=== PATIENT | female | born 1930 | race Caucasian/White ===

== ENCOUNTER 2018-02-22 12:32 | Outpatient (CLI) | payer MEDICARE, OTHER | END 2018-02-22 12:33 | disposition home or self-care (01) | LOC: BICMAMMO 12:32 | PROVIDERS: ATTEND Internal Medicine | DX: Z12.31 Encounter for screening mammogram for malignant neoplasm of breast (principal); Z85.3 Personal history of malignant neoplasm of breast | CPT/HCPCS: 77063; 77067 ==

== ENCOUNTER 2018-04-11 10:08 | Inpatient (IN) | payer MEDICARE, OTHER ==
[2018-04-11 10:57] LABS: #Lymphocytes 0.7 thou/uL (1.20-3.40); #Monocytes 0.4 thou/uL (0.11-0.59); #Neutrophils 6.1 thou/uL (1.40-6.50); %Basophils 0.5 % (0.0-1.0); %Eosinophils 0.6 % (0.0-10.0); %Lymphocytes 8.9 % (21.0-51.0); %Monocytes 5.9 % (0.0-10.0); %Neutrophils 84.2 % (42.0-75.0); Hemoglobin 11.4 g/dL (12.0-16.0); Mean Corpuscular HGB CONC 32.9 g/dL (32.0-36.0); Mean Corpuscular Hemoglobin 30.7 pg (27.0-31.0); Mean Corpuscular Volume 93.1 fl (81.0-99.0); Mean Platelet Volume 6.2 fL (7.4-10.4); Platelet Count 394 thou/uL (130-400); RBC Distribution Width 13.3 % (11.5-14.5); Red Blood Cell (RBC) Count 3.71 mill/uL (4.20-5.40); White Blood Cell (WBC) Count 7.3 thou/uL (4.8-10.8)
[2018-04-11] MEDS ORDERED: Ondansetron ODT 8 MG TAB ONE (11:00)
[2018-04-11 11:06] LABS: INR-International Normal Ratio 3.3; Prothrombin Time 35.3 SEC (12.0-14.7)
--- NOTE | 2018-04-11 11:12 | RAD ---
CHEST 1 VIEW: Date: 04/11/18 HISTORY: Pneumonia. COMPARISON: Chest radiograph dated 11/29/16. FINDINGS: Heart size is mildly enlarged. Continued obscuration of left hemidiaphragm and left lateral costophre jany sulcus and chronic increase in mediastinal fat. Dual lead pacer is in place. Subacromial narrowin g bilaterally. IMPRESSION: Similar exam with chronic changes in the chest. Mild cardiomegaly. POS: [facility]
[2018-04-11 11:21] LABS: ALT (SGPT) 13 U/L (8-55); AST (SGOT) 25 U/L (5-34); Albumin 3.9 g/dL (3.4-4.8); Alkaline Phosphatase 68 U/L (40-150); Anion Gap 21 mmol/L (10-20); BUN (Urea Nitrogen) 40 mg/dL (9.8-20.1); Bilirubin, Total 0.3 mg/dL (0.2-1.2); CK (CPK) 147 U/L (29-168); Calc. Creatinine Clearance 0 mL/min (70-130); Calcium 9.5 mg/dL (7.8-10.44); Carbon Dioxide 12 mmol/L (23-31); Chloride 101 mmol/L (98-107); Estimated GFR-MDRD 15; Globulin 3.1 g/dL (2.4-3.5); Glucose 97 mg/dL (83-110); Lipase 11 U/L (8-78); Magnesium 2.2 mg/dL (1.6-2.6); Potassium 5.8 mmol/L (3.5-5.1); Sodium 128 mmol/L (136-145)
[2018-04-11 11:25] LABS: Troponin I Less than 0.010 ng/mL (< 0.028)
[2018-04-11 11:27] LABS: CKMB 6.8 ng/mL (0-6.6)
--- NOTE | 2018-04-11 11:36 | CT ---
CT BRAIN WITHOUT CONTRAST: Date: 04/11/18 HISTORY: Hallucinations. COMPARISON: Prior CT brain dated 11/29/16. FINDINGS: No acute territorial infarct or hemorrhage. No midline shift or mass effect. Ventricular size and ext ra-axial CSF spaces are normal. Calvarium is intact. Paranasal sinuses and mastoids are clear. There is moderate atrophy with ex vacuo dilatation of the ventricular system and extra-axial CSF spac es. Orbits are unremarkable. IMPRESSION: No acute intracranial abnormality. POS: [facility]
[2018-04-11] MEDS ORDERED: Hydrocortisone Sod Succ/PF 100 mg/2 ml Vial ONE (11:48)
[2018-04-11 11:51] LABS: Bilirubin Negative (Negative); Blood, Urine Moderate (Negative); Clarity CLEAR (Clear); Glucose, Urine (Dipstick) Negative (Negative); Leukocyte Negative (Negative); Nitrite Negative (Negative); Protein, Urine (Dipstick) 30 mg/dL (Neg-Trace); Specific Gravity, Urine 1.014 (1.002-1.036); Urobilinogen 0.2 mg/dL (0.2-1.0); pH, Urine 6.5 (5.0-9.0)
[2018-04-11 11:53] LABS: Bacteria/HPF None Seen HPF (None Seen); Hyaline Casts/LPF 0-3 HYALINE CAST LPF (0-3 Hyaline); Pathc Cast-AUWi Flag 0.29 (0-2.49); Squamous Epithelial 0-3 HPF (0-3); WBC/HPF None Seen HPF (0-3)
[2018-04-11] MEDS ORDERED: Piperacillin/Tazobactam 4.5 GM in Sodium Chloride 0.9% 100 ML IVPB SCH (12:00)
[2018-04-11] MEDS ORDERED: Vancomycin HCl 1.5 GM in Sodium Chloride 0.9% 250 ML 300 ML IVPB SCH ×2 (12:00→15:30)
[2018-04-11] MEDS ORDERED: Sodium Chloride 0.9% 100 ML ONE (12:08)
[2018-04-11] MEDS ORDERED: Piperacillin/Tazobactam 4.5 GM VIAL ONE (12:08)
--- NOTE | 2018-04-11 12:15 | RAD ---
PORTABLE CHEST: HISTORY: Altered mental status, vomiting. COMPARISON: Earlier exam of the same day. FINDINGS: The heart size is enlarged with a pacemaker in place. The lungs are clear of any infiltrative proces s. IMPRESSION: 1. Cardiomegaly with transvenous pacemaker in place. 2. Arthritic changes of the right shoulder and changes suggesting chronic rotator cuff injury. POS: [facility]ERLINE
[2018-04-11] MEDS ORDERED: Azithromycin 500 MG in Sodium Chloride 0.9% 250 ML 250 ML IVPB SCH ×2 (12:30→15:30)
--- NOTE | 2018-04-11 13:53 | CT ---
CT ABDOMEN AND PELVIS WITHOUT IV CONTRAST: Date: 04/11/18 Multiple axial tomograms obtained through the abdomen and pelvis without IV enhancement. Oral contras t was not administered. INDICATIONS: Abdominal pain with vomiting. Comparison made to prior abdominal and pelvic CT dated 09/24/16. FINDINGS: Lung bases are clear. Liver and spleen are unremarkable. Pancreas shows atrophy and is unremarkable. The gallbladder is mildly distended. Gallbladder distention was also present on the prior study. No e vidence of gallstones; however, cholesterol gallstones may not be apparent on CT. No evidence of bili mercy duct dilatation apparent. Adrenal glands unremarkable. Kidneys show cortical thinning. Exophytic cyst from the right kidney kael ears stable. No hydronephrosis. There is opacification of both renal pelvises suggesting contrast exc retion. Recommend clinical correlation regarding recent IV iodinated contrast. There are nonobstructing calculi in the upper collecting structures of both kidneys. The ureters are normal caliber with no evidence of ureteral calculus or obstruction. Urinary bladder unremarkable. Small bowel loops appear normal caliber. The patient has a left colostomy. There has been resection o f the left descending colon. There is a rectal sigmoid stump with radiopaque suture material. There i s diverticulosis of numerous small bowel loops in the left abdomen and scattered diverticula involvin g the visualized left and transverse colon. No definite CT evidence of diverticulitis identified. Aorta is normal caliber with peripheral calcification. Patient appears to be post hysterectomy. Degenerative spine changes are seen. There is gas pocket in the spinal canal at the L3-4 level. This would be secondary to extravasated gas from vacuum phenomenon within the disc space in the spinal can al. This does appear to compress the thecal sac and result in central canal stenosis. IMPRESSION: 1. Mildly distended gallbladder. Similar findings noted on prior CT. 2. Diverticulosis of the visualized transverse and remaining left colon, and also diverticulosis of numerous small bowel loops in the left abdomen. No CT evidence of diverticulitis. 3. Kidneys show cortical thinning and renal cysts which are stable. Opacification in the renal colle cting structures suggests recent contrast administration with renal excretion. There are nonobstructi ng calculi in the upper collecting structures of both kidneys. 4. There is a gas pocket in the spinal canal at the L3-4 level with secondary central canal stenosis . POS: [facility]
[2018-04-11] MEDS ORDERED: Acetaminophen 325 MG TAB PO PRN (14:32)
[2018-04-11] MEDS ORDERED: Ondansetron ODT 4 MG TAB PO PRN ×2 (14:32→15:21)
[2018-04-11] MEDS ORDERED: Ondansetron HCl/PF 4 MG/2 ML Vial IVP PRN (14:32)
[2018-04-11] MEDS ORDERED: Benzonatate 100 MG CAP PO PRN (15:21)
[2018-04-11] MEDS ORDERED: Acetaminophen/Codeine 30-300mg Tablet PO PRN (15:21)
[2018-04-11] MEDS ORDERED: guaiFENesin ER 600 MG TAB PO PRN (15:21)
[2018-04-11] MEDS ORDERED: Milk Of Magnesia 30 ML UDCUP PO PRN (15:21)
[2018-04-11] MEDS ORDERED: Simethicone Chewable 80 MG TAB PO PRN (15:21)
[2018-04-11] MEDS ORDERED: Estradiol 0.01% Vaginal Cream 42.5 gm Tube VAG SCH (15:30)
[2018-04-11 15:36] LABS: Lactic Acid 5.4 mmol/L (0.5-2.2)
[2018-04-11] MEDS ORDERED: diphenhydrAMINE 25 MG CAP PO PRN (15:46)
[2018-04-11] MEDS: metFORMIN 500 MG TAB PO SCH (17:25)
[2018-04-11] MEDS: Dronedarone HCl 400 MG TAB PO SCH (17:25)
[2018-04-11] MEDS: Sodium Chloride 0.9% 1,000 ML IV SCH (17:25)
--- NOTE | 2018-04-11 17:45 | HP ---
DATE OF ADMISSION: 04/11/2018 CHIEF COMPLAINT: Weakness and vomiting. HISTORY OF PRESENT ILLNESS: This patient is an 87-year-old female who lives in a nursing facility who presented with progressive 2 week history of weakness and nausea. The patient has not been able to take in much secondary to the nausea and over the last 2 days reports she has had no significant intake at all. She reports that today she started vomiting, had a couple of episodes. She also reports that she has had some cough and believes someone at the nursing facility thought she may have had pneumonia. She is unclear if she was specifically given any medications for that or not. She reports she did have some sputum, but that is essentially resolved at the moment. The patient had reported to the ER physician and admits to me that she was having some visual hallucinations. She has good insight to this and reports that she thought she was seeing a cat around. She also reported to ER physician that she had been seeing her late . PAST MEDICAL HISTORY: Notable for diabetes mellitus, hypertension, hyperlipidemia, hypothyroidism, obstructive sleep apnea, obesity, gout, atrial fibrillation and Parkinson disease, and breast cancer. Patient also admits to having some difficulty with her short term memory and is on medications for dementia. PAST SURGICAL HISTORY: Notable for an umbilical hernia repair which apparently may have resulted in some secondary infection causing a partial colectomy with colostomy placement. She has a history of glaucoma with eye surgery x8. Right mastectomy. Right ureteral stent secondary to nephrolithiasis. FAMILY HISTORY: Patient reports that her father of heart disease. Her mother 1 month shy of her 89 birthday. SOCIAL HISTORY: The patient lives in a nursing facility. She states that she smoked but quit in 05/1942. She denies alcohol use. She is a and has 2 sons. She reports that her surrogate decision maker would be her son, Jesús Harry. Patient also requests DNR status upon discussion. She stated "at my age why bother." She states she wants simple things, but nothing aggressive like that. REVIEW OF SYSTEMS: Notable for the memory problems that she reported, but otherwise a 10 point review of systems was negative except for those things mentioned in the history of present illness. CURRENT MEDICATIONS: Tramadol 50 mg every day, metformin 1000 mg b.i.d., guaifenesin 600 b.i.d., diphenhydramine 25 mg at bedtime p.r.n., timolol eyedrops, Bactrim b.i.d., VESIcare 10 mg every day, simvastatin 40 mg at bedtime , simethicone 180 mg p.r.n., Xarelto 20 mg every day, potassium 20 mEq daily, pantoprazole 40 mg every day, Zofran 4 mg q.4 hours p.r.n., metoprolol succinate 100 mg p.o. at bedtime, meloxicam 7.5 mg every day, levothyroxine 88 mcg at bedtime, DuoNebs p.r.n., gentamicin ophthalmic drops half inch to each eye t.i.d., Lasix 40 mg every day, Estradiol vaginal cream 1 gram every week, Multaq 400 mg b.i.d., Aricept 5 mg every day, Tylenol with codeine 1 tablet q.6 hours p.r.n., Levaquin 750 mg p.o. daily, Tessalon Perles 100 mg p.o. t.i.d., p.r.n. Tylenol. ALLERGIES: HALDOL, NSAIDs, METOCLOPRAMIDE. PHYSICAL EXAMINATION: VITAL SIGNS: Temperature 97.3, pulse 74, respirations 16, O2 sat 94% on room air, BP is 123/87. GENERAL APPEARANCE: Age appropriate female, in no distress. She is awake and alert. She does have some frontal male pattern type baldness. HEENT: Pupils are constricted and nonreactive with vastly diminished visual acuity. No OP lesions. She does have significant sublingual varicosities. NECK: Supple and symmetric without lymphadenopathy or JVD. CARDIOVASCULAR: Regular rate and rhythm without murmurs, gallops or rubs. LUNGS: Clear to auscultation bilaterally with good chest wall expansion and air exchange. ABDOMEN: Soft, nontender, nondistended with positive bowel sounds. The colostomy stoma appears to be very healthy. EXTREMITIES: Warm and dry without significant erythema or edema. SKIN: Shows no evidence of breakdown or lesions. LABORATORY DATA: White count 7.3, hemoglobin 11.4, platelets 394. INR is 3.3. Chemistry notable for sodium of 128, potassium 5.8, chloride 101, CO2 of 12, BUN 40, creatinine is 2.89. Lactic acid 5.6 with subsequent repeat 5.4, glucose 97, magnesium is 2.2, AST is 25, ALT is 13. CK 147, CK-MB 6.8, troponin less than 0.010. Albumin 3.9, lipase 11. TSH 0.3. Urinalysis is clear with negative ketones, nitrites, bilirubin and leukocyte esterase, positive for blood with 4-6 red cells and no white cells seen, 0-3 hyaline casts. Chest x-ray shows cardiomegaly with pacemaker, some arthritic changes in the shoulder, suggesting some rotator cuff injury. IMAGING: CT of the abdomen and pelvis shows mild distended gallbladder, unchanged from prior exam, diverticulosis throughout the colon and portions of the small bowel. Kidney shows some cortical thinning with renal cyst. There is a gas pocket in the spinal canal at the L3-L4 level with secondary central canal stenosis. CT of the brain, no acute intracranial abnormality. IMPRESSION AND PLAN: 1. This patient has a moderate hyponatremia. It is unclear that this is actually symptomatic at this point, but certainly could be accounting for some of her altered mental status symptoms and nausea. She appears to be prerenal on her labs. We will hydrate gently to try to slowly improve her sodium levels. This may be secondary to the nausea or initiating the nausea. 2. Hyperkalemia. This patient is on diuretics and potassium. When she is nauseated, not taking p.o., she can dehydrated fairly quickly and cause the hyperkalemia. We will hold both the Lasix and the potassium and hydrate gently. 3. Prerenal azotemia. The patient appears to be somewhat dehydrated with prerenal azotemia on labs and not able to take in much p.o. in the last few days. In addition of that she has had some vomiting. I suspect this will improve with hydration. Her creatinine has been fairly labile, but it looks like her baseline is below 1.6. 4. Diabetes mellitus. We will continue with her usual meds and Accu-Chek monitoring. 5. History of atrial fibrillation. The patient is on Xa inhibitor. We will continue with that. 6. Lactic acidosis. The patient does not appear to be septic. There are no signs of infection. She has a normal white count, no fever and her vital signs are otherwise generally stable. This may be secondary to the prerenal azotemia and dehydration. Need to be careful with the fluids. Her hyponatremia is not terribly low, but do not aggressively reverse it either and to avoid CPM. 7. Cough. The patient has had some cough recently. It appears as though she has been put on some antibiotics for it, but her chest x-ray fails to show any evidence of infiltrate. We will hold the antibiotics. 8. Glaucoma. We will continue with the patient's usual home regimen. 9. Hyperlipidemia. Continue simvastatin 40 mg at bedtime. 10. Hypothyroidism. Patient's thyroid level is borderline. We will not make adjustments at this time as she has been ill and these measures are not reliable. MTDD
[2018-04-11] MEDS: Gentamicin Ophth Ointment 0.3% 3.5 gm Tube EA EYE SCH (20:56)
[2018-04-11] MEDS: Simvastatin 40 MG TAB PO SCH (20:56)
[2018-04-12 05:19] LABS: #Eosinphils 0.2 thou/uL (0.0-0.7); #Lymphocytes 0.9 thou/uL (1.20-3.40); #Monocytes 0.8 thou/uL (0.11-0.59); %Basophils 0.2 % (0.0-1.0); %Eosinophils 2.3 % (0.0-10.0); %Lymphocytes 13.6 % (21.0-51.0); %Monocytes 11.2 % (0.0-10.0); %Neutrophils 72.7 % (42.0-75.0); Hemoglobin 10.3 g/dL (12.0-16.0); Mean Corpuscular HGB CONC 34.8 g/dL (32.0-36.0); Mean Corpuscular Hemoglobin 32.2 pg (27.0-31.0); Mean Corpuscular Volume 92.5 fl (81.0-99.0); Mean Platelet Volume 6.2 fL (7.4-10.4); Platelet Count 354 thou/uL (130-400); RBC Distribution Width 13.4 % (11.5-14.5); Red Blood Cell (RBC) Count 3.19 mill/uL (4.20-5.40); White Blood Cell (WBC) Count 6.9 thou/uL (4.8-10.8)
[2018-04-12 05:38] LABS: Anion Gap 15 mmol/L (10-20); BUN (Urea Nitrogen) 37 mg/dL (9.8-20.1); Calc. Creatinine Clearance 20 mL/min (70-130); Calcium 8.7 mg/dL (7.8-10.44); Carbon Dioxide 14 mmol/L (23-31); Chloride 106 mmol/L (98-107); Estimated GFR-MDRD 18; Glucose 68 mg/dL (83-110); Potassium 5.2 mmol/L (3.5-5.1); Sodium 130 mmol/L (136-145)
[2018-04-12] MEDS: Levothyroxine Sodium 88 MCG TAB PO SCH (05:46)
[2018-04-12] MEDS: Sodium Chloride 0.9% 1,000 ML IV SCH ×2 (05:46→18:42)
[2018-04-12] MEDS ORDERED: Potassium Chloride 20 MEQ TAB PO SCH (08:00)
[2018-04-12] MEDS ORDERED: Rivaroxaban 10 MG TAB PO SCH (09:00)
[2018-04-12] MEDS ORDERED: Meloxicam 7.5 MG TAB PO SCH (09:00)
[2018-04-12] MEDS: metFORMIN 500 MG TAB PO SCH ×2 (09:01→16:50)
[2018-04-12] MEDS: Dronedarone HCl 400 MG TAB PO SCH ×2 (09:01→16:50)
[2018-04-12] MEDS: Donepezil HCl 5 MG TAB PO SCH (09:02)
[2018-04-12] MEDS: Gentamicin Ophth Ointment 0.3% 3.5 gm Tube EA EYE SCH ×3 (09:02→21:45)
[2018-04-12] MEDS: TROSPIUM 20 MG TABLET PO SCH (09:02)
[2018-04-12] MEDS: traMADol HCl 50 MG TAB PO SCH (09:02)
[2018-04-12] MEDS: Timolol 0.5% Ophth Soln 5 ml Bottle L EYE SCH (10:20)
--- NOTE | 2018-04-12 11:34 | PDOC.PN ---
- Subjective Encounter Start Date: 04/12/18 Encounter Start Time: 11:33 States she is doing well. Denies nausea or vomiting. Ate a little breakfast. - Objective Resuscitation Status: Resuscitation Status DNR:Do Not Resuscitate Vital Signs & Weight: Vital Signs (12 hours) Temp Pulse Resp BP Pulse Ox 04/12/18 08:16 97.6 F 84 17 151/68 H 98 04/12/18 04:00 98.3 F 84 17 134/68 94 L 04/12/18 00:00 97.3 F L 81 20 110/55 L 95 Weight Weight 183 lb 11.2 oz I&O: 04/11/18 04/12/18 04/13/18 06:59 06:59 06:59 Intake Total 690 1223 Output Total 75 Balance 690 1148 Result Diagrams: 04/12/18 04:22 04/12/18 04:22 Additional Labs: Accuchecks 04/12/18 04/12/18 04/11/18 10:52 06:18 21:33 POC Glucose 69 L 88 90 04/11/18 17:12 POC Glucose 92 Phys Exam - Physical Examination Constitutional: NAD Respiratory: no wheezing, no rales, no rhonchi, clear to auscultation bilateral Cardiovascular: RRR, no significant murmur, no rub Gastrointestinal: soft, non-tender, no distention Musculoskeletal: no edema Neurological: non-focal She is a little confused. Dx/Plan (1) Hyponatremia Code(s): E87.1 - HYPO-OSMOLALITY AND HYPONATREMIA Status: Acute Plan: Suspect dehydration. She was taking Lasix and had hyponatremia secondary to dehydration. Improving with gentle hydration. Continue same. (2) Hyperkalemia Code(s): E87.5 - HYPERKALEMIA Status: Acute Plan: Secondary to dehydration and continued use of po potassium. Being held. Improved with some hydration. Recheck in am. (3) Dehydration Code(s): E86.0 - DEHYDRATION Status: Acute Plan: With pre-renal azotemia. Hydrating. (4) Lactic acid acidosis Code(s): E87.2 - ACIDOSIS Status: Acute Plan: Secondary to dehydration with pre-renal azotemia. (5) Abnormal findings on diagnostic imaging of spine Code(s): R93.7 - ABNORMAL FINDINGS ON DIAGNOSTIC IMAGING OF PRT MS SYS Status : Acute Plan: There was an "gas" pocket at the LSpine on CT abdomen. Patient reports that she has had spinal injection for back pain. Suspect this is secondary. No focal neuro defects on exam. (6) Hypertension Code(s): I10 - ESSENTIAL (PRIMARY) HYPERTENSION Status: Chronic (7) Parkinson disease Code(s): G20 - PARKINSON'S DISEASE Status: Chronic - Plan * As above.
[2018-04-12] MEDS: Simvastatin 40 MG TAB PO SCH (21:45)
[2018-04-13 05:04] LABS: Anion Gap 11 mmol/L (10-20); BUN (Urea Nitrogen) 32 mg/dL (9.8-20.1); Calc. Creatinine Clearance 25 mL/min (70-130); Calcium 8.6 mg/dL (7.8-10.44); Carbon Dioxide 15 mmol/L (23-31); Chloride 112 mmol/L (98-107); Estimated GFR-MDRD 22; Glucose 80 mg/dL (83-110); Potassium 4.8 mmol/L (3.5-5.1); Sodium 133 mmol/L (136-145)
[2018-04-13] MEDS: Levothyroxine Sodium 88 MCG TAB PO SCH (06:11)
[2018-04-13 07:58] LABS: Lactic Acid 1.1 mmol/L (0.5-2.2)
[2018-04-13] MEDS: Sodium Bicarbonate 150 MEQ in Dextrose 5% in Water 1,000 ML IV SCH ×2 (09:03→22:59)
[2018-04-13] MEDS: Dronedarone HCl 400 MG TAB PO SCH ×2 (09:04→16:00)
[2018-04-13] MEDS: TROSPIUM 20 MG TABLET PO SCH (09:04)
[2018-04-13] MEDS: Donepezil HCl 5 MG TAB PO SCH (09:04)
[2018-04-13] MEDS: traMADol HCl 50 MG TAB PO SCH (09:05)
[2018-04-13] MEDS: Gentamicin Ophth Ointment 0.3% 3.5 gm Tube EA EYE SCH ×3 (09:06→20:37)
[2018-04-13] MEDS: Timolol 0.5% Ophth Soln 5 ml Bottle L EYE SCH (09:06)
--- NOTE | 2018-04-13 12:15 | PDOC.PN ---
- Subjective Encounter Start Date: 04/13/18 Encounter Start Time: 09:00 Patient seen and examined for Encephalopathy/Hyponatremia. No new complaints. No overnight events. Mentation improving. - Objective Resuscitation Status: Resuscitation Status DNR:Do Not Resuscitate MAR Reviewed: Yes Vital Signs & Weight: Vital Signs (12 hours) Temp Pulse Resp BP Pulse Ox 04/13/18 08:50 98.1 F 64 16 146/60 H 96 04/13/18 07:35 98.1 F 64 16 04/13/18 04:00 98.2 F 70 18 129/67 97 Weight Weight 184 lb 12.8 oz I&O: 04/12/18 04/13/18 04/14/18 06:59 06:59 06:59 Intake Total 690 2713 Output Total 325 Balance 690 2388 Result Diagrams: 04/12/18 04:22 04/13/18 04:26 Additional Labs: Accuchecks 04/13/18 04/13/18 04/12/18 10:46 05:42 20:52 POC Glucose 118 H 76 84 04/12/18 16:48 POC Glucose 82 EKG Reviewed by me: Yes (Tele paced) Phys Exam - Physical Examination Constitutional: NAD Respiratory: no wheezing, no rhonchi Cardiovascular: RRR, no rub Gastrointestinal: soft, non-tender, positive bowel sounds Musculoskeletal: no edema Neurological: moves all 4 limbs Dx/Plan (1) POLI (acute kidney injury) Code(s): N17.9 - ACUTE KIDNEY FAILURE, UNSPECIFIED Status: Acute Comment: on CKD 2. due to dehydration/Bactrim/Lasix and oral Potassium supplements. Will dc Metformin/Mobic. Will change IVF to D5W with bicarb (2) Hyponatremia Code(s): E87.1 - HYPO-OSMOLALITY AND HYPONATREMIA Status: Acute Comment: with Metabolic Encephalopathy, improving, Check labs in AM (3) Lactic acid acidosis Code(s): E87.2 - ACIDOSIS Status: Acute Comment: Metabolic acidosis. Will dc Metformin. Start Bicarb drip due to hyperchloremia (4) Chronic a-fib Code(s): I48.2 - CHRONIC ATRIAL FIBRILLATION Status: Chronic Comment: Will change Xarelto to renal dose (15 mg daily). Cont Metoprolol (5) Other chronic issues Status: Chronic Comment: DM2, HTN, HLD, Obesity BMI 32.7, ELENA, Freq falls, Deconditioning (6) Abnormal findings on diagnostic imaging of spine Code(s): R93.7 - ABNORMAL FINDINGS ON DIAGNOSTIC IMAGING OF PRT MS SYS Status : Acute Comment: Prob due to recent back injection (7) Hyperkalemia Code(s): E87.5 - HYPERKALEMIA Status: Acute Comment: resolved Review of Systems - Review of Systems Respiratory: negative: Cough, Dry, Shortness of Breath, Hemoptysis, SOB with Excertion, Pleuritic Pain, Sputum, Wheezing Cardiovascular: negative: chest pain, palpitations, orthopnea, paroxysmal nocturnal dyspnea, edema, light headedness, other Gastrointestinal: negative: Nausea, Vomiting, Abdominal Pain, Diarrhea, Constipation, Melena, Hematochezia, Other - Medications/Allergies Allergies/Adverse Reactions: Allergies Allergy/AdvReac Type Severity Reaction Status Date / Time haloperidol [From Haldol] Allergy Verified 04/11/18 11:56 NSAIDS (Non-Steroidal Allergy Verified 04/11/18 11:56 Anti-Inflamma metoclopramide HCl AdvReac Severe Verified 11/30/16 01:09 [From Reglan] Medications: Current Medications Albuterol/Ipratropium (Duoneb) 3 ml NEB QID PRN PRN Reason: SOB &/or Wheezing Benzonatate (Tessalon) 100 mg PO TID PRN PRN Reason: Cough Diphenhydramine HCl (Benadryl) 25 mg PO HS PRN PRN Reason: Insomnia Donepezil HCl (Aricept) 5 mg PO DAILY [facility] Last Admin: 04/13/18 09:04 Dose: 5 mg Dronedarone (Multaq) 400 mg PO BID-[facility] Last Admin: 04/13/18 09:04 Dose: 400 mg Estradiol (Estrace 0.01% Vaginal Cream) 1 gm VAG Q7D [facility] Gentamicin Sulfate (Gentak 0.3% Ophth Ointment) 0 gm EA EYE TID [facility] Last Admin: 04/13/18 09:06 Dose: 1 applic Guaifenesin (Mucinex) 600 mg PO BID PRN PRN Reason: Allergies Sodium Bicarbonate 150 meq/ (Dextrose/Water) 1,150 mls @ 75 mls/hr IV .[id number] [facility] Last Admin: 04/13/18 09:03 Dose: 1,150 mls Levothyroxine Sodium (Synthroid) 88 mcg PO 0600 [facility] Last Admin: 04/13/18 06:11 Dose: 88 mcg Magnesium Hydroxide (Milk Of Magnesium) 30 ml PO HS PRN PRN Reason: Constipation Metoprolol Succinate (Toprol Xl) 100 mg PO HS [facility] Last Admin: 04/12/18 21:44 Dose: 100 mg Ondansetron HCl (Zofran Odt) 4 mg PO Q4HR PRN PRN Reason: Nausea/Vomiting Pantoprazole Sodium (Protonix) 40 mg PO DAILY [facility] Last Admin: 04/13/18 09:04 Dose: 40 mg Rivaroxaban (Xarelto) 15 mg PO QPM [facility] Simvastatin (Zocor) 40 mg PO HS [facility] Last Admin: 04/12/18 21:45 Dose: 40 mg Sodium Chloride (Flush - Normal Saline) 10 ml IVF Q12HR [facility] Last Admin: 04/13/18 09:08 Dose: 10 ml Sodium Chloride (Flush - Normal Saline) 10 ml IVF PRN PRN PRN Reason: Saline Flush Timolol Maleate (Timoptic 0.5% [facility]) 1 drop L EYE DAILY [facility] Last Admin: 04/13/18 09:06 Dose: 1 drop Tramadol HCl (Ultram) 50 mg PO DAILY [facility] Last Admin: 04/13/18 09:05 Dose: Not Given Trospium (Trospium) 20 mg PO DAILY [facility] Last Admin: 04/13/18 09:04 Dose: 20 mg
[2018-04-13] MEDS: Simvastatin 40 MG TAB PO SCH (20:33)
[2018-04-13] MEDS: Rivaroxaban 15 MG TAB PO SCH (20:37)
[2018-04-14 05:31] LABS: #Eosinphils 0.2 thou/uL (0.0-0.7); #Lymphocytes 1.1 thou/uL (1.20-3.40); #Monocytes 0.7 thou/uL (0.11-0.59); #Neutrophils 5.7 thou/uL (1.40-6.50); %Basophils 0.3 % (0.0-1.0); %Eosinophils 3.1 % (0.0-10.0); %Lymphocytes 13.6 % (21.0-51.0); %Monocytes 8.6 % (0.0-10.0); %Neutrophils 74.4 % (42.0-75.0); Hemoglobin 9.6 g/dL (12.0-16.0); Mean Corpuscular HGB CONC 34.4 g/dL (32.0-36.0); Mean Corpuscular Hemoglobin 31.3 pg (27.0-31.0); Mean Corpuscular Volume 90.9 fl (81.0-99.0); Platelet Count 280 thou/uL (130-400); RBC Distribution Width 13.4 % (11.5-14.5); Red Blood Cell (RBC) Count 3.08 mill/uL (4.20-5.40); White Blood Cell (WBC) Count 7.7 thou/uL (4.8-10.8)
[2018-04-14 05:43] LABS: Anion Gap 10 mmol/L (10-20); BUN (Urea Nitrogen) 23 mg/dL (9.8-20.1); Calc. Creatinine Clearance 32 mL/min (70-130); Calcium 8.4 mg/dL (7.8-10.44); Carbon Dioxide 20 mmol/L (23-31); Chloride 108 mmol/L (98-107); Estimated GFR-MDRD 29; Glucose 151 mg/dL (83-110); Potassium 3.9 mmol/L (3.5-5.1); Sodium 134 mmol/L (136-145)
[2018-04-14] MEDS: Levothyroxine Sodium 88 MCG TAB PO SCH (05:51)
[2018-04-14] MEDS: TROSPIUM 20 MG TABLET PO SCH (08:49)
[2018-04-14] MEDS: Donepezil HCl 5 MG TAB PO SCH (08:49)
[2018-04-14] MEDS: Dronedarone HCl 400 MG TAB PO SCH ×2 (08:49→17:40)
[2018-04-14] MEDS: Timolol 0.5% Ophth Soln 5 ml Bottle L EYE SCH (08:56)
[2018-04-14] MEDS: Gentamicin Ophth Ointment 0.3% 3.5 gm Tube EA EYE SCH ×3 (08:56→20:05)
[2018-04-14] MEDS: traMADol HCl 50 MG TAB PO SCH (09:40)
[2018-04-14] MEDS: Potassium Chloride 10 MEQ TAB PO SCH ×2 (11:27→17:40)
[2018-04-14] MEDS: Sodium Bicarbonate 150 MEQ in Dextrose 5% in Water 1,000 ML IV SCH (13:30)
[2018-04-14] MEDS ORDERED: traMADol HCl 50 MG TAB PO PRN (15:10)
--- NOTE | 2018-04-14 15:16 | PDOC.PN ---
- Subjective Encounter Start Date: 04/14/18 Encounter Start Time: 09:00 Patient seen and examined for POLI/Encephalopathy. No new complaints. No overnight events - Objective Resuscitation Status: Resuscitation Status DNR:Do Not Resuscitate MAR Reviewed: Yes Vital Signs & Weight: Vital Signs (12 hours) Temp Pulse Resp BP Pulse Ox 04/14/18 11:26 98.2 F 60 16 141/66 H 92 L 04/14/18 08:56 60 04/14/18 08:00 98.4 F 60 16 04/14/18 07:39 98.4 F 60 16 136/63 95 04/14/18 04:00 97.7 F 67 18 151/69 H 96 Weight Weight 187 lb 3.2 oz I&O: 04/13/18 04/14/18 04/15/18 06:59 06:59 06:59 Intake Total 2713 2602 Output Total 325 140 Balance 2388 2462 Result Diagrams: 04/14/18 05:01 04/14/18 05:01 Additional Labs: Accuchecks 04/14/18 04/14/18 04/13/18 10:54 05:29 20:09 POC Glucose 191 H 162 H 131 H 04/13/18 16:30 POC Glucose 131 H EKG Reviewed by me: Yes (Tele Paced) Phys Exam - Physical Examination Constitutional: NAD Respiratory: no wheezing, no rhonchi Cardiovascular: RRR, no rub Gastrointestinal: soft, non-tender, positive bowel sounds Musculoskeletal: no edema Neurological: moves all 4 limbs Dx/Plan (1) POLI (acute kidney injury) Code(s): N17.9 - ACUTE KIDNEY FAILURE, UNSPECIFIED Status: Acute Comment: on CKD 2. due to dehydration/Bactrim/Lasix and oral Potassium supplements. (2) Hyponatremia Code(s): E87.1 - HYPO-OSMOLALITY AND HYPONATREMIA Status: Acute Comment: with Metabolic Encephalopathy, improving (3) Lactic acid acidosis Code(s): E87.2 - ACIDOSIS Status: Acute Comment: Metabolic acidosis. (4) Chronic a-fib Code(s): I48.2 - CHRONIC ATRIAL FIBRILLATION Status: Chronic Comment: Will change Xarelto to renal dose (15 mg daily). Cont Metoprolol (5) Other chronic issues Status: Chronic Comment: DM2, HTN, HLD, Obesity BMI 32.7, ELENA, Freq falls, Deconditioning, Hyperkalemia (6) Abnormal findings on diagnostic imaging of spine Code(s): R93.7 - ABNORMAL FINDINGS ON DIAGNOSTIC IMAGING OF PRT MS SYS Status : Acute Comment: Prob due to recent back injection - Plan PT/OT, DVT proph w/SCDs Cont Bicarb drip -: Potassium chloride 20 meq x 1 due to risk of hypokalemia on bicarb drip -: AM labs -: Cont current meds as below including Xarelto -: Add Ensure Review of Systems - Review of Systems Respiratory: negative: Cough, Dry, Shortness of Breath, Hemoptysis, SOB with Excertion, Pleuritic Pain, Sputum, Wheezing Cardiovascular: negative: chest pain, palpitations, orthopnea, paroxysmal nocturnal dyspnea, edema, light headedness, other - Medications/Allergies Allergies/Adverse Reactions: Allergies Allergy/AdvReac Type Severity Reaction Status Date / Time haloperidol [From Haldol] Allergy Verified 04/11/18 11:56 NSAIDS (Non-Steroidal Allergy Verified 04/11/18 11:56 Anti-Inflamma metoclopramide HCl AdvReac Severe Verified 11/30/16 01:09 [From Reglan] Medications: Current Medications Albuterol/Ipratropium (Duoneb) 3 ml NEB QID PRN PRN Reason: SOB &/or Wheezing Benzonatate (Tessalon) 100 mg PO TID PRN PRN Reason: Cough Diphenhydramine HCl (Benadryl) 25 mg PO HS PRN PRN Reason: Insomnia Donepezil HCl (Aricept) 5 mg PO DAILY [facility] Last Admin: 04/14/18 08:49 Dose: 5 mg Dronedarone (Multaq) 400 mg PO BID-[facility] Last Admin: 04/14/18 08:49 Dose: 400 mg Estradiol (Estrace 0.01% Vaginal Cream) 1 gm VAG Q7D [facility] Gentamicin Sulfate (Gentak 0.3% Ophth Ointment) 0 gm EA EYE TID [facility] Last Admin: 04/14/18 08:56 Dose: 1 applic Guaifenesin (Mucinex) 600 mg PO BID PRN PRN Reason: Allergies Sodium Bicarbonate 150 meq/ (Dextrose/Water) 1,150 mls @ 75 mls/hr IV .[id number] [facility] Last Admin: 04/14/18 13:30 Dose: 1,150 mls Levothyroxine Sodium (Synthroid) 88 mcg PO 0600 [facility] Last Admin: 04/14/18 05:51 Dose: 88 mcg Magnesium Hydroxide (Milk Of Magnesium) 30 ml PO HS PRN PRN Reason: Constipation Metoprolol Succinate (Toprol Xl) 100 mg PO HS [facility] Last Admin: 04/13/18 20:33 Dose: 100 mg Ondansetron HCl (Zofran Odt) 4 mg PO Q4HR PRN PRN Reason: Nausea/Vomiting Pantoprazole Sodium (Protonix) 40 mg PO DAILY [facility] Last Admin: 04/14/18 08:49 Dose: 40 mg Potassium Chloride (Klor-Con 10) 10 meq PO TID-[facility] Stop: 04/14/18 17:01 Last Admin: 04/14/18 11:27 Dose: 10 meq Rivaroxaban (Xarelto) 15 mg PO QPM [facility] Last Admin: 04/13/18 20:37 Dose: Not Given Simvastatin (Zocor) 40 mg PO HS [facility] Last Admin: 04/13/18 20:33 Dose: 40 mg Sodium Chloride (Flush - Normal Saline) 10 ml IVF Q12HR [facility] Last Admin: 04/14/18 08:57 Dose: Not Given Sodium Chloride (Flush - Normal Saline) 10 ml IVF PRN PRN PRN Reason: Saline Flush Timolol Maleate (Timoptic 0.5% [facility]) 1 drop L EYE DAILY [facility] Last Admin: 04/14/18 08:56 Dose: 1 drop Tramadol HCl (Ultram) 50 mg PO Q6H PRN PRN Reason: Moderate Pain (4-6) Trospium (Trospium) 20 mg PO DAILY [facility] Last Admin: 04/14/18 08:49 Dose: 20 mg
[2018-04-14] MEDS: Rivaroxaban 15 MG TAB PO SCH (20:06)
[2018-04-14] MEDS: Simvastatin 40 MG TAB PO SCH (20:06)
[2018-04-15] MEDS: Sodium Bicarbonate 150 MEQ in Dextrose 5% in Water 1,000 ML IV SCH (03:48)
[2018-04-15 05:57] LABS: Anion Gap 8 mmol/L (10-20); BUN (Urea Nitrogen) 17 mg/dL (9.8-20.1); Calc. Creatinine Clearance 36 mL/min (70-130); Calcium 8.4 mg/dL (7.8-10.44); Carbon Dioxide 27 mmol/L (23-31); Chloride 106 mmol/L (98-107); Estimated GFR-MDRD 33; Glucose 172 mg/dL (83-110); Sodium 137 mmol/L (136-145)
[2018-04-15 06:06] LABS: Phosphorus 1.6 mg/dL (2.3-4.7)
[2018-04-15] MEDS: Levothyroxine Sodium 88 MCG TAB PO SCH (06:36)
[2018-04-15] MEDS: Donepezil HCl 5 MG TAB PO SCH (08:33)
[2018-04-15] MEDS: Timolol 0.5% Ophth Soln 5 ml Bottle L EYE SCH (08:33)
[2018-04-15] MEDS: Gentamicin Ophth Ointment 0.3% 3.5 gm Tube EA EYE SCH ×3 (08:33→20:40)
[2018-04-15] MEDS: TROSPIUM 20 MG TABLET PO SCH (08:33)
[2018-04-15] MEDS: Dronedarone HCl 400 MG TAB PO SCH ×2 (08:33→16:48)
[2018-04-15] MEDS ORDERED: K-Phos Neutral 250 MG TAB PO SCH (08:45)
[2018-04-15 08:47] VITALS: BMI 33.1
[2018-04-15] MEDS: Dextrose 5 %-0.45 % NaCl 1,000 ML IV SCH (09:39)
[2018-04-15] MEDS: K-Phos Neutral 250 MG TAB PO SCH ×2 (11:55→16:47)
[2018-04-15] MEDS: Simvastatin 40 MG TAB PO SCH (20:39)
[2018-04-15] MEDS: Rivaroxaban 15 MG TAB PO SCH (20:39)
--- NOTE | 2018-04-15 22:22 | PDOC.PN ---
- Subjective Encounter Start Date: 04/15/18 Encounter Start Time: 09:00 Patient seen and examined for POLI. No new complaints. No overnight events - Objective Resuscitation Status: Resuscitation Status DNR:Do Not Resuscitate MAR Reviewed: Yes Vital Signs & Weight: Vital Signs (12 hours) Temp Pulse Resp BP Pulse Ox 04/15/18 20:00 98.2 F 68 18 97 04/15/18 19:36 98.2 F 68 18 157/90 H 97 04/15/18 16:46 98.6 F 62 18 162/82 H 97 04/15/18 11:57 98.3 F 62 24 H 167/75 H 97 04/15/18 11:37 98.3 F 62 24 H 97 Weight Admit Weight 180 lb Weight 187 lb 3.2 oz I&O: 04/14/18 04/15/18 04/16/18 06:59 06:59 06:59 Intake Total 2602 1322 2500 Output Total 140 150 Balance 2462 1172 2500 Result Diagrams: 04/16/18 05:06 04/16/18 05:05 Additional Labs: Accuchecks 04/15/18 04/15/18 04/15/18 19:36 16:47 11:22 POC Glucose 173 H 151 H 216 H 04/15/18 04/14/18 06:09 21:07 POC Glucose 190 H 201 H EKG Reviewed by me: Yes (Tele paced) Phys Exam - Physical Examination Constitutional: NAD Respiratory: no wheezing, no rhonchi Cardiovascular: RRR, no rub Gastrointestinal: soft, non-tender, positive bowel sounds Musculoskeletal: no edema Dx/Plan (1) POLI (acute kidney injury) Code(s): N17.9 - ACUTE KIDNEY FAILURE, UNSPECIFIED Status: Acute Comment: on CKD 2 with Hyperkalemia. due to dehydration/Bactrim/Lasix and oral Potassium supplements. (2) Hyponatremia Code(s): E87.1 - HYPO-OSMOLALITY AND HYPONATREMIA Status: Acute Comment: with Metabolic Encephalopathy, improving (3) Lactic acid acidosis Code(s): E87.2 - ACIDOSIS Status: Acute Comment: Metabolic acidosis. (4) Chronic a-fib Code(s): I48.2 - CHRONIC ATRIAL FIBRILLATION Status: Chronic Comment: Will change Xarelto to renal dose (15 mg daily). Cont Metoprolol (5) Other chronic issues Status: Chronic Comment: DM2, HTN, HLD, Obesity BMI 32.7, ELENA, Freq falls, Deconditioning, Hyperkalemia (6) Abnormal findings on diagnostic imaging of spine Code(s): R93.7 - ABNORMAL FINDINGS ON DIAGNOSTIC IMAGING OF PRT MS SYS Status : Acute Comment: Prob due to recent back injection (7) Hypophosphatemia Code(s): E83.39 - OTHER DISORDERS OF PHOSPHORUS METABOLISM Status: Acute - Plan Replace Phosphorus -: Cont current meds as below -: AM labs -: Transfer to medical -: Change IVF to D5 11/13 NS Review of Systems - Medications/Allergies Allergies/Adverse Reactions: Allergies Allergy/AdvReac Type Severity Reaction Status Date / Time haloperidol [From Haldol] Allergy Verified 04/11/18 11:56 NSAIDS (Non-Steroidal Allergy Verified 04/11/18 11:56 Anti-Inflamma metoclopramide HCl AdvReac Severe Verified 11/30/16 01:09 [From Reglan] Medications: Current Medications Albuterol/Ipratropium (Duoneb) 3 ml NEB QID PRN PRN Reason: SOB &/or Wheezing Benzonatate (Tessalon) 100 mg PO TID PRN PRN Reason: Cough Diphenhydramine HCl (Benadryl) 25 mg PO HS PRN PRN Reason: Insomnia Donepezil HCl (Aricept) 5 mg PO DAILY [facility] Last Admin: 04/15/18 08:33 Dose: 5 mg Dronedarone (Multaq) 400 mg PO BID-WM [facility] Last Admin: 04/15/18 16:48 Dose: 400 mg Estradiol (Estrace 0.01% Vaginal Cream) 1 gm VAG Q7D [facility] Gentamicin Sulfate (Gentak 0.3% Ophth Ointment) 0 gm EA EYE TID [facility] Last Admin: 04/15/18 20:40 Dose: 1 applic Guaifenesin (Mucinex) 600 mg PO BID PRN PRN Reason: Allergies Dextrose/Sodium Chloride (D5 11/13 Ns) 1,000 mls @ 50 mls/hr IV .Q20H [facility] Last Admin: 04/15/18 09:39 Dose: 1,000 mls Levothyroxine Sodium (Synthroid) 88 mcg PO 0600 [facility] Last Admin: 04/15/18 06:36 Dose: 88 mcg Magnesium Hydroxide (Milk Of Magnesium) 30 ml PO HS PRN PRN Reason: Constipation Metoprolol Succinate (Toprol Xl) 100 mg PO HS [facility] Last Admin: 04/15/18 20:39 Dose: 100 mg Ondansetron HCl (Zofran Odt) 4 mg PO Q4HR PRN PRN Reason: Nausea/Vomiting Pantoprazole Sodium (Protonix) 40 mg PO DAILY [facility] Last Admin: 04/15/18 08:33 Dose: 40 mg Phosphorus (Kphos Neutral) 250 mg PO TID-WM [facility] Last Admin: 04/15/18 16:47 Dose: 250 mg Rivaroxaban (Xarelto) 15 mg PO QPM [facility] Last Admin: 04/15/18 20:39 Dose: 15 mg Simvastatin (Zocor) 40 mg PO HS [facility] Last Admin: 04/15/18 20:39 Dose: 40 mg Sodium Chloride (Flush - Normal Saline) 10 ml IVF Q12HR [facility] Last Admin: 04/15/18 20:39 Dose: Not Given Sodium Chloride (Flush - Normal Saline) 10 ml IVF PRN PRN PRN Reason: Saline Flush Timolol Maleate (Timoptic 0.5% Oph Soln) 1 drop L EYE DAILY [facility] Last Admin: 04/15/18 08:33 Dose: 1 drop Tramadol HCl (Ultram) 50 mg PO Q6H PRN PRN Reason: Moderate Pain (4-6) Trospium (Trospium) 20 mg PO DAILY [facility] Last Admin: 04/15/18 08:33 Dose: 20 mg
[2018-04-16] MEDS: Dextrose 5 %-0.45 % NaCl 1,000 ML IV SCH (05:29)
[2018-04-16] MEDS: Levothyroxine Sodium 88 MCG TAB PO SCH (05:29)
[2018-04-16 05:30] LABS: Hemoglobin 9.8 g/dL (12.0-16.0); Platelet Count 238 thou/uL (130-400)
[2018-04-16 05:47] LABS: Anion Gap 9 mmol/L (10-20); BUN (Urea Nitrogen) 13 mg/dL (9.8-20.1); Calc. Creatinine Clearance 43 mL/min (70-130); Calcium 8.3 mg/dL (7.8-10.44); Carbon Dioxide 26 mmol/L (23-31); Chloride 107 mmol/L (98-107); Estimated GFR-MDRD 41; Glucose 152 mg/dL (83-110); Magnesium 1.6 mg/dL (1.6-2.6); Phosphorus 2.8 mg/dL (2.3-4.7); Potassium 3.7 mmol/L (3.5-5.1); Sodium 138 mmol/L (136-145)
[2018-04-16] MEDS: Donepezil HCl 5 MG TAB PO SCH (07:34)
[2018-04-16] MEDS: Dronedarone HCl 400 MG TAB PO SCH ×2 (07:34→16:05)
[2018-04-16] MEDS: TROSPIUM 20 MG TABLET PO SCH (07:34)
[2018-04-16] MEDS: K-Phos Neutral 250 MG TAB PO SCH ×3 (07:35→17:01)
[2018-04-16] MEDS: Gentamicin Ophth Ointment 0.3% 3.5 gm Tube EA EYE SCH ×3 (07:35→19:58)
[2018-04-16] MEDS: Timolol 0.5% Ophth Soln 5 ml Bottle L EYE SCH (07:36)
--- NOTE | 2018-04-16 11:40 | RAD ---
LEFT ANKLE THREE VIEWS: HISTORY: Ankle pain. COMPARISON: None. FINDINGS: There are degenerative changes at the ankle with stirring at the tibiotalar joint. 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 No acute fracture identified. A prominent plantar enthesophyte is seen, measuring up to 1.3 cm. A small posterior enthesophyte is also seen from the calcaneus. IMPRESSION: Degenerative changes at the ankle and evidence of an old medial malleolar fracture. Prominent planta r enthesophyte from the calcaneus. No acute fracture identified. POS: [facility]
[2018-04-16] MEDS ORDERED: Acetaminophen 325 MG TAB PO PRN (12:33)
[2018-04-16] MEDS: Acetaminophen 325 MG TAB PO SCH ×2 (16:05→19:58)
[2018-04-16] MEDS: Simvastatin 40 MG TAB PO SCH (19:57)
[2018-04-16] MEDS: Rivaroxaban 15 MG TAB PO SCH (19:58)
--- NOTE | 2018-04-16 23:09 | PDOC.PN ---
- Subjective Encounter Start Date: 04/16/18 Encounter Start Time: 09:30 Patient seen and examined for POLI/Hyponatremia. Left ankle pain - unable to walk. No overnight events - Objective Resuscitation Status: Resuscitation Status DNR:Do Not Resuscitate MAR Reviewed: Yes Vital Signs & Weight: Vital Signs (12 hours) Temp Pulse Resp BP Pulse Ox 04/16/18 20:39 97.6 F 67 18 142/62 H 98 04/16/18 20:00 97.6 F 67 18 98 04/16/18 16:05 97.7 F 60 20 157/78 H 98 Weight Admit Weight 180 lb Weight 187 lb 3.2 oz I&O: 04/15/18 04/16/18 04/17/18 06:59 06:59 06:59 Intake Total 1322 3580 1500 Output Total 150 251 Balance 1172 3329 1500 Result Diagrams: 04/16/18 05:06 04/17/18 04:01 Additional Labs: Accuchecks 04/16/18 04/16/18 04/16/18 20:24 17:02 11:00 POC Glucose 172 H 155 H 146 H 04/16/18 05:20 POC Glucose 159 H Phys Exam - Physical Examination Constitutional: NAD Respiratory: no wheezing, no rhonchi Cardiovascular: RRR, no rub Gastrointestinal: soft, non-tender, positive bowel sounds Musculoskeletal: no edema Left ankle tenderness - gen - no swelling/redness Neurological: moves all 4 limbs Psychiatric: A&O x 3 Dx/Plan (1) POLI (acute kidney injury) Code(s): N17.9 - ACUTE KIDNEY FAILURE, UNSPECIFIED Status: Acute Comment: on CKD 2 with Hyperkalemia. due to dehydration/Bactrim/Lasix and oral Potassium supplements. (2) Hyponatremia Code(s): E87.1 - HYPO-OSMOLALITY AND HYPONATREMIA Status: Acute Comment: with Metabolic Encephalopathy, improving (3) Lactic acid acidosis Code(s): E87.2 - ACIDOSIS Status: Acute Comment: Metabolic acidosis. (4) Chronic a-fib Code(s): I48.2 - CHRONIC ATRIAL FIBRILLATION Status: Chronic Comment: Will change Xarelto to renal dose (15 mg daily). Cont Metoprolol (5) Abnormal findings on diagnostic imaging of spine Code(s): R93.7 - ABNORMAL FINDINGS ON DIAGNOSTIC IMAGING OF PRT MS SYS Status : Acute Comment: Prob due to recent back injection (6) Hypophosphatemia Code(s): E83.39 - OTHER DISORDERS OF PHOSPHORUS METABOLISM Status: Acute (7) Other chronic issues Status: Chronic Comment: DM2, HTN, HLD, Obesity BMI 32.7, ELENA, Freq falls, Deconditioning, Hyperkalemia (8) Ankle pain, left Code(s): M25.572 - PAIN IN LEFT ANKLE AND JOINTS OF LEFT FOOT Status: Acute - Plan Left ankle XR to r/o fracture -: DC later today or in AM if able to walk -: Cont current meds as below -: AM labs -: DC IVF Review of Systems - Review of Systems Respiratory: negative: Cough, Dry, Shortness of Breath, Hemoptysis, SOB with Excertion, Pleuritic Pain, Sputum, Wheezing Cardiovascular: negative: chest pain, palpitations, orthopnea, paroxysmal nocturnal dyspnea, edema, light headedness, other Gastrointestinal: negative: Nausea, Vomiting, Abdominal Pain, Diarrhea, Constipation, Melena, Hematochezia, Other - Medications/Allergies Allergies/Adverse Reactions: Allergies Allergy/AdvReac Type Severity Reaction Status Date / Time haloperidol [From Haldol] Allergy Verified 04/11/18 11:56 NSAIDS (Non-Steroidal Allergy Verified 04/11/18 11:56 Anti-Inflamma metoclopramide HCl AdvReac Severe Verified 11/30/16 01:09 [From Reglan] Medications: Current Medications Acetaminophen (Tylenol) 650 mg PO Q4H PRN PRN Reason: Headache/Fever or Mild Pain Acetaminophen (Tylenol) 650 mg PO TID [facility] Last Admin: 04/16/18 19:58 Dose: 650 mg Albuterol/Ipratropium (Duoneb) 3 ml NEB QID PRN PRN Reason: SOB &/or Wheezing Benzonatate (Tessalon) 100 mg PO TID PRN PRN Reason: Cough Diphenhydramine HCl (Benadryl) 25 mg PO HS PRN PRN Reason: Insomnia Donepezil HCl (Aricept) 5 mg PO DAILY [facility] Last Admin: 04/16/18 07:34 Dose: 5 mg Dronedarone (Multaq) 400 mg PO BID-[facility] Last Admin: 04/16/18 16:05 Dose: 400 mg Estradiol (Estrace 0.01% Vaginal Cream) 1 gm VAG Q7D [facility] Gentamicin Sulfate (Gentak 0.3% Ophth Ointment) 0 gm EA EYE TID [facility] Last Admin: 04/16/18 19:58 Dose: 1 applic Guaifenesin (Mucinex) 600 mg PO BID PRN PRN Reason: Allergies Levothyroxine Sodium (Synthroid) 88 mcg PO 0600 [facility] Last Admin: 04/16/18 05:29 Dose: 88 mcg Magnesium Hydroxide (Milk Of Magnesium) 30 ml PO HS PRN PRN Reason: Constipation Metoprolol Succinate (Toprol Xl) 100 mg PO HS [facility] Last Admin: 04/16/18 19:57 Dose: 100 mg Ondansetron HCl (Zofran Odt) 4 mg PO Q4HR PRN PRN Reason: Nausea/Vomiting Pantoprazole Sodium (Protonix) 40 mg PO DAILY [facility] Last Admin: 04/16/18 07:35 Dose: 40 mg Phosphorus (Kphos Neutral) 250 mg PO TID-[facility] Last Admin: 04/16/18 17:01 Dose: 250 mg Rivaroxaban (Xarelto) 15 mg PO QPM [facility] Last Admin: 04/16/18 19:58 Dose: 15 mg Simvastatin (Zocor) 40 mg PO HS [facility] Last Admin: 04/16/18 19:57 Dose: 40 mg Sodium Chloride (Flush - Normal Saline) 10 ml IVF Q12HR [facility] Last Admin: 04/16/18 19:58 Dose: 10 ml Sodium Chloride (Flush - Normal Saline) 10 ml IVF PRN PRN PRN Reason: Saline Flush Timolol Maleate (Timoptic 0.5% Ophth Soln) 1 drop L EYE DAILY [facility] Last Admin: 04/16/18 07:36 Dose: 1 drop Tramadol HCl (Ultram) 50 mg PO Q6H PRN PRN Reason: Moderate Pain (4-6) Trospium (Trospium) 20 mg PO DAILY [facility] Last Admin: 04/16/18 07:34 Dose: 20 mg
[2018-04-17 05:23] LABS: Anion Gap 13 mmol/L (10-20); BUN (Urea Nitrogen) 12 mg/dL (9.8-20.1); Calc. Creatinine Clearance 48 mL/min (70-130); Calcium 8.5 mg/dL (7.8-10.44); Carbon Dioxide 22 mmol/L (23-31); Chloride 107 mmol/L (98-107); Estimated GFR-MDRD 46; Glucose 132 mg/dL (83-110); Potassium 3.7 mmol/L (3.5-5.1); Sodium 138 mmol/L (136-145)
[2018-04-17] MEDS: Levothyroxine Sodium 88 MCG TAB PO SCH (05:55)
[2018-04-17] MEDS: TROSPIUM 20 MG TABLET PO SCH (09:35)
[2018-04-17] MEDS: Dronedarone HCl 400 MG TAB PO SCH (09:35)
[2018-04-17] MEDS: K-Phos Neutral 250 MG TAB PO SCH ×2 (09:35→12:41)
[2018-04-17] MEDS: Acetaminophen 325 MG TAB PO SCH (09:35)
[2018-04-17] MEDS: Donepezil HCl 5 MG TAB PO SCH (09:36)
[2018-04-17] MEDS: Timolol 0.5% Ophth Soln 5 ml Bottle L EYE SCH (09:37)
[2018-04-17] MEDS: Gentamicin Ophth Ointment 0.3% 3.5 gm Tube EA EYE SCH (09:37)
[2018-04-17 14:26] VITALS: BP 157/75; TEMP 97.6
--- NOTE | 2018-04-17 20:48 | DIS ---
DATE OF DISCHARGE: 04/18/2018 DISCHARGE DISPOSITION: Assisted living at [facility]. FOLLOWUP: Follow up with Dr. Jessica Vargas in 1 week. Fall precaution was emphasized. Patient is allergic to HALDOL, NSAIDs, and REGLAN. DISCHARGE MEDICATIONS: Same as admission medications. No changes were made. BRIEF HOSPITAL COURSE: Patient is an 87-year-old female with diabetes mellitus type 2, hypertension, hyperlipidemia, and atrial fibrillation presented to the hospital with altered mentation with genera lized weakness and vomiting. Please refer to the history and physical for further details. The patient was admitted to the hospital with a diagnosis of metabolic encephalopathy. Sodium on the day of admission was 128 with potassium 5.8, bicarbonate of 12, anion gap 21, BUN of 40, creatinine of 2.89 with lactic acid of 5.6. She showed good improvement with IV hydration. She was started on bicarbonate drip that was later changed to normal saline. Mentation gradually improved. She was the n transferred to the medical floor. On the day of discharge, her sodium is 138 with potassium 3.7, B UN of 12, creatinine 1.13. Her blood cultures and urine cultures were negative. Chest x-ray was neg ative for infiltrate. CT scan of the abdomen and pelvis noncontrast was essentially negative for acu te findings. There was a gas pocket in the spinal canal at L3-L4 level that was probably secondary t o recent back injection. She appears stable for discharge. FINAL DIAGNOSES: 1. Toxic metabolic encephalopathy, multifactorial. 2. Acute kidney injury on chronic kidney disease, stage 3, resolved. 3. Hyponatremia. 4. Hypophosphatemia. 5. Hyperkalemia. 6. Lactic acidosis/metabolic acidosis, resolved. 7. Chronic atrial fibrillation on anticoagulation. 8. Diabetes mellitus, type 2. 9. Hypertension. 10. Hyperlipidemia. 11. History of falls. 12. Obstructive sleep apnea. 13. Obesity with a BMI 33.2. 14. Deconditioning. 15. Glaucoma. 16. Left ankle pain. X-ray of the ankle was negative for fractures. 17. Chronic anemia. 18. Diabetic nephropathy. Total time coordinating the discharge of this patient was 37 minutes. Patient was extensively counse led on fall precautions.
[2018-04-18] MEDS ORDERED: Estradiol 0.01% Vaginal Cream 42.5 gm Tube VAG SCH (16:00)
== END 2018-04-17 14:33 | disposition home or self-care (01) | DRG 640 ==
LOC: ERS 10:08 → 2NO 12:26 → T4-A 04-15 10:49
PROVIDERS: ADMIT Internal Medicine; ATTEND Internal Medicine
DX: E87.1 Hypo-osmolality and hyponatremia (principal); G92 Toxic encephalopathy; N17.9 Acute kidney failure, unspecified; E87.2 Acidosis; N18.3 Chronic kidney disease, stage 3 (moderate); E83.39 Other disorders of phosphorus metabolism; E87.5 Hyperkalemia; I48.2 Chronic atrial fibrillation; Z79.01 Long term (current) use of anticoagulants; E11.22 Type 2 diabetes mellitus with diabetic chronic kidney disease; I12.9 Hypertensive chronic kidney disease with stage 1 through stage 4 chronic kidney disease, or unspecified chronic kidney disease; E78.5 Hyperlipidemia, unspecified; Z91.81 History of falling; G47.33 Obstructive sleep apnea (adult) (pediatric); E66.9 Obesity, unspecified; Z68.33 Body mass index [BMI] 33.0-33.9, adult; R53.81 Other malaise; D63.8 Anemia in other chronic diseases classified elsewhere; E11.21 Type 2 diabetes mellitus with diabetic nephropathy; H40.9 Unspecified glaucoma; M25.572 Pain in left ankle and joints of left foot; G20 Parkinson's disease; E86.0 Dehydration; Z79.84 Long term (current) use of oral hypoglycemic drugs; R79.89 Other specified abnormal findings of blood chemistry; E03.9 Hypothyroidism, unspecified; Z87.891 Personal history of nicotine dependence; Z66 Do not resuscitate; Z85.3 Personal history of malignant neoplasm of breast; F02.80 Dementia in other diseases classified elsewhere, unspecified severity, without behavioral disturbance, psychotic disturbance, mood disturbance, and anxiety; R05 Cough
CPT/HCPCS: 36415; 36416; 51701; 70450; 71045; 74176; 80048; 80053; 81003; 81015; 82553; 83605; 83690; 83735; 84100; 84443; 84484; 85014; 85018; 85025; 85049; 85610; 87040; 87086; 93005; 96365; 96375; A4216; G8978-GP-CK; G8979-GP-CI; G8987-GO-CK; G8988-GO-CJ; J0456; J1720; J2543; J3370; J7050; J7070

== ENCOUNTER 2019-03-18 14:48 | Emergency (ER) | payer MEDICARE, OTHER | END 2019-03-18 19:35 | disposition home or self-care (01) | LOC: ERS 14:48 | DX: Z93.3 Colostomy status (principal); E11.9 Type 2 diabetes mellitus without complications; I10 Essential (primary) hypertension | CPT/HCPCS: 99283 ==

== ENCOUNTER 2019-08-01 08:59 | Inpatient (IN) | payer MEDICARE, OTHER ==
--- NOTE | 2019-08-01 09:35 | CT ---
EXAM: CT brain without contrast HISTORY: Dizziness and confusion. Altered mental status. COMPARISON: 04/11/2018 TECHNIQUE: Multiple contiguous axial images were obtained and a CT of the brain without contrast. FINDINGS: There are 2 areas in the left parietal lobe with loss of gerber-white matter differentiation. These are new compared to the prior examination. There is no evidence of hydrocephalus, intracranial hemorrhage, or extra-axial fluid collection. The calvarium and overlying soft tissues are unremarkable. The visualized paranasal sinuses and masto id air cells are well aerated. IMPRESSION: 2 areas of loss of gerber-white matter differentiation in the left parietal lobe likely rep resent subacute infarctions in the left MCA distribution. An MRI the brain is recommended for further evaluation.
--- NOTE | 2019-08-01 09:46 | RAD ---
AP CHEST: Date: 08/01/19 HISTORY: Mental status change. COMPARISON: 04/11/18. FINDINGS: Cardiomegaly. Dual lead pacemaker device is unchanged. Mild vascular engorgement without overt conges tion or edema apparent. No interval change in the appearance of the chest. IMPRESSION: Stable chest findings. POS: [facility]
[2019-08-01 09:56] LABS: #Eosinphils 0.2 thou/uL (0.0-0.7); #Monocytes 0.7 thou/uL (0.11-0.59); #Neutrophils 4.4 thou/uL (1.40-6.50); %Basophils 0.1 % (0.0-1.0); %Eosinophils 2.9 % (0.0-10.0); %Lymphocytes 16.2 % (21.0-51.0); %Monocytes 10.7 % (0.0-10.0); Hemoglobin 11.7 g/dL (12.0-16.0); Mean Corpuscular HGB CONC 32.9 g/dL (32.0-36.0); Mean Corpuscular Hemoglobin 27.1 pg (27.0-31.0); Mean Corpuscular Volume 82.4 fL (78.0-98.0); Mean Platelet Volume 7.4 fL (7.4-10.4); Platelet Count 227 thou/uL (130-400); RBC Distribution Width 16.8 % (11.5-14.5); Red Blood Cell (RBC) Count 4.33 mill/uL (4.20-5.40); White Blood Cell (WBC) Count 6.3 thou/uL (4.8-10.8)
[2019-08-01 10:23] LABS: ALT (SGPT) 13 U/L (8-55); AST (SGOT) 18 U/L (5-34); Acetaminophen Less than 6.0 mcg/mL (10.0-30.0); Alcohol Less than 10 mg/dL (Less than 10); Alkaline Phosphatase 84 U/L (40-150); Anion Gap 11 mmol/L (10-20); BUN (Urea Nitrogen) 19 mg/dL (9.8-20.1); Bilirubin, Total 0.5 mg/dL (0.2-1.2); Calc. Creatinine Clearance 0 mL/min (70-130); Calcium 9.8 mg/dL (7.8-10.44); Carbon Dioxide 26 mmol/L (23-31); Chloride 100 mmol/L (98-107); Estimated GFR-MDRD 39; Globulin 2.8 g/dL (2.4-3.5); Glucose 189 mg/dL (83-110); Protein, Total 6.8 g/dL (6.0-8.3); Salicylate Less than 8.0 mg/dL (15.0-30.0); Sodium 132 mmol/L (136-145)
[2019-08-01 10:23] LABS: Bilirubin Negative (Negative); Blood, Urine Negative (Negative); Clarity Clear (Clear); Glucose, Urine (Dipstick) 30 mg/dL (Negative); Leukocyte Negative Leu/uL (Negative); Nitrite Negative (Negative); Protein, Urine (Dipstick) 20 mg/dL (Neg-Trace); Urobilinogen Normal mg/dL (Less than 2)
[2019-08-01 13:41] VITALS: BMI 33.5
[2019-08-01] MEDS ORDERED: Ondansetron ODT 4 MG TAB SL PRN (13:43)
[2019-08-01] MEDS ORDERED: Acetaminophen 325 MG TAB PO PRN (13:43)
[2019-08-01] MEDS ORDERED: Ondansetron PF 4 MG/2 ML Vial IVP PRN (13:43)
[2019-08-01] MEDS ORDERED: traMADol HCl 50 MG TAB PO PRN (15:54)
[2019-08-01] MEDS ORDERED: Ondansetron ODT 4 MG TAB PO PRN (15:54)
[2019-08-01] MEDS ORDERED: Dextrose 5% in Water 1,000 ML IV PRN (15:56)
[2019-08-01] MEDS ORDERED: Dextrose 50% Abboject 50 ML SYRINGE SLOW IVP PRN (15:56)
--- NOTE | 2019-08-01 16:20 | ULT ---
EXAM: Carotid Doppler PROVIDED CLINICAL HISTORY: CVA COMPARISON: None FINDINGS: Grayscale and color Doppler sonography with spectral analysis was performed of the extracranial carot id system bilaterally. There is no evidence for a hemodynamically significant internal carotid artery stenosis by peak systolic velocity or ratio criteria. Antegrade flow is seen in the vertebral arteries. 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 IMPRESSION: No sonographic evidence for a hemodynamically significant internal carotid artery stenosis.
[2019-08-01] MEDS: Milk Of Magnesia 30 ML UDCUP PO SCH (21:01)
[2019-08-01] MEDS: Levothyroxine Sodium 88 MCG TAB PO SCH (21:04)
[2019-08-01] MEDS: Simvastatin 20 MG TAB PO SCH (21:04)
--- NOTE | 2019-08-01 21:35 | HP ---
PRIMARY CARE PHYSICIAN: CHIEF COMPLAINT: Confusion. HISTORY OF PRESENT ILLNESS: The patient is a group home resident, who was sent to the emergency room by EM for evaluation of her mental status changes. Apparently, she had some dizziness and confusion, which is worse than what is usually is, although she has a history of dementia. She denied any nausea or vomiting. No chest pain, headache, dysuria, fever or chills. Apparently, she had some slurred speech this morning, but it was not observed by EMS or emergency room staff. Also, there was some entry that she had some obvious facial droop, but again symptoms were not there when the EMS crew got to the scene. The patient takes Xarelto. PAST MEDICAL HISTORY: 1. Type 2 diabetes mellitus. 2. Dementia. 3. Parkinson's disease. 4. Glaucoma. 5. Essential hypertension. 6. Paroxysmal atrial fibrillation. 7. Gastroesophageal reflux disease. 8. Constipation. 9. Overactive bladder. 10. Hyperlipidemia. 11. History of repeated falls. PAST SURGICAL HISTORY: 1. Colostomy. 2. 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 3. Hernia repair. 4. Hysterectomy. PSYCHIATRIC HISTORY: Positive for depression. SOCIAL HISTORY[facility] She does not have any history of cigarette smoking, alcohol intake in any significant amounts or illicit drug use. FAMILY HISTORY: Patient is not able to give me any specifics on that. MEDICATIONS: At the time of admission: 1. Aricept 5 mg once daily. 2. Glipizide 5 mg once daily. 3. Levothyroxine 88 mcg once daily. 4. Metoprolol succinate 100 mg once daily. 5. Milk of magnesia twice daily. 6. Myrbetriq 25 mg daily. 7. Pantoprazole 40 mg daily. 8. Simvastatin 20 mg daily. 9. Ophthalmic timolol 0.5 mg drops one eye drop once daily. 10. Tramadol 50 mg p.r.n. as needed. 11. VESIcare 10 mg once daily. 12. Xarelto 20 mg once daily. ALLERGIES: 1. REGLAN. 2. HALDOL. 3. NSAIDS. REVIEW OF SYSTEMS: Unobtainable secondary to the patient's dementia. PHYSICAL EXAMINATION: VITAL SIGNS: Blood pressure is 182/80, pulse is 96, respirations 18, O2 saturation 97% on room air, her temperature is 98 degrees. HEENT: Head is atraumatic and normocephalic. Eyes are PERRLA. Sclerae are nonicteric. Oral mucosa is moist. NECK: Supple. LUNGS: Clear. HEART: S1, S2 normal. Somewhat irregular. No S3. No S4. She has pacemaker in place at the left upper chest. ABDOMEN: Soft, nontender, nondistended. Bowel sounds are present. No organomegaly. There is a colostomy bag in the left lower quadrant with some stool in it. EXTREMITIES: No clubbing, cyanosis, or edema. NEUROLOGICAL: She follows my commands. She has some problem with [id number]. Strength is good in upper and lower extremities. There is no any motor or sensory deficits. Her visual rouse are within normal limits. Extraocular movements within normal limits. SKIN: No rash or erythema. LABORATORY DATA: White count of 6.3, hemoglobin 11.7, hematocrit 35.7, platelet count 227,000. Sodium of 132, potassium 5.0, chloride 100, CO2 26, BUN 19, creatinine 1.28, glucose 189. Third-generation TSH 131. The rest of chemistry within normal limits. Troponin I 0.018. Urinalysis normal. Urine drug screen within normal limits. IMAGING: Images personally reviewed by me. 1. Chest x-ray showed some cardiomegaly and increased vascular congestion, mild. 2. A brain CT shows a left parietal lobe area of subacute infarction, personally reviewed by me. 3. EKG showed electronic atrial pacemaker and right bundle-branch block. This was personally reviewed by me. IMPRESSION: 1. Subacute left parietal lobe cerebrovascular accident. 2. Diabetes mellitus. 3. Dementia. 4. Paroxysmal atrial fibrillation. 5. Pacemaker. 6. Gastroesophageal reflux disease. 7. Overactive bladder. 8. Parkinson disease. 9. Glaucoma. 10. Hyperlipidemia. 11. Hypertension. PLAN: Admit to the Stroke Unit. CONDITION: Fair. ACTIVITY: Bedrest and bathroom privileges per full code. 1. IV Hep-Lock. 2. Echocardiogram. 3. Carotid Doppler. 4. Continue Xarelto. 5. We will reconcile her group home medications. 6. We will do before meals and at bedtime Accu-Cheks and cover with sliding scale. 7. We will put her on levothyroxine, metoprolol and the rest of her medications will be on hold. 8. For now, we will get Neurology consultation with Dr. Burns and we will get MRI of the brain without contrast. Job ID: [id number]
[2019-08-02] MEDS: HumaLOG 300 UNITS/3 ML VIAL SC PRN ×2 (06:40→12:58)
--- NOTE | 2019-08-02 09:05 | CON ---
DATE OF CONSULTATION: 08/02/2019 CONSULTING PHYSICIAN: Hospitalist Service. IMPRESSION: 1. Possible transient ischemic attack. 2. The patient is already on maximum medical therapy. PLAN: I would continue her current treatment and she can be discharged back to the detention. HISTORY OF PRESENT ILLNESS: Ms. Harry is an 88-year-old woman, who has past history of diabetes, hypertension, atrial fibrillation, and dementia, who is a detention resident. She apparently was noted to have some slurred speech and was transferred here for evaluation. She had a CT of the brain done, which did not reveal any evidence of a hemorrhage. There was some suspicious hypointensity in the left middle cerebral artery territory. She reports that she has a bit of difficulty finding her words, but can comprehend what people are saying. She had a carotid ultrasound done, which did not reveal any stenosis. Her lab work was unremarkable other than some hyperglycemia. Review of the CT scan, there is previous area of hypointensity involving the posterior middle cerebral artery territory, which would not correlate with an acute event. PAST MEDICAL HISTORY: As listed above. ALLERGIES: HALDOL, NON-STEROIDALS, REGLAN. SOCIAL HISTORY: No tobacco or alcohol. FAMILY HISTORY: Noncontributory. REVIEW OF SYSTEMS: Ten-system review of systems is otherwise negative. PHYSICAL EXAMINATION: VITAL SIGNS: Blood pressure 164/70, pulse 60, respirations 16, and temperature 98.7. HEENT: Pupils are equal. Conjunctivae are clear. Oropharynx clear. Cranium, normocephalic and atraumatic. NECK: Supple. No lymphadenopathy. EXTREMITIES: No cyanosis or edema. NEUROLOGIC: She was alert and cooperative. Her speech seemed to be fluent and clear. There was some slight asymmetry in her facial folds with some mild flattening present on the left. She had good one piece expansion maker hand strength bilaterally. There was no fix or drift. Her sensation was intact bilaterally. No abnormal movements were seen. LABORATORY STUDIES: Including a CBC, serum chemistry, urinalysis, and toxicology were all unremarkable. SUMMARY: An 88-year-old woman with a history of atrial fibrillation, is currently on anticoagulation. She is also on a statin. She has no carotid disease. Her symptoms seem to have cleared. I would continue her current treatment and she can be discharged. Job ID: [id number]
[2019-08-02] MEDS: Donepezil HCl 5 MG TAB PO SCH (09:16)
[2019-08-02] MEDS: Trospium 20 MG TAB PO SCH ×2 (09:16→21:28)
[2019-08-02] MEDS: Docusate 100 MG CAP PO SCH (09:16)
[2019-08-02] MEDS: Rivaroxaban 10 MG TAB PO SCH (09:16)
[2019-08-02] MEDS: Milk Of Magnesia 30 ML UDCUP PO SCH ×2 (09:16→21:27)
[2019-08-02] MEDS: Timolol 0.5% Ophth Soln 5 ml Bottle L EYE SCH (10:52)
[2019-08-02 11:19] LABS: Anion Gap 15 mmol/L (10-20); BUN (Urea Nitrogen) 21 mg/dL (9.8-20.1); Calc. Creatinine Clearance 46 mL/min (70-130); Calcium 9.2 mg/dL (7.8-10.44); Carbon Dioxide 22 mmol/L (23-31); Chloride 100 mmol/L (98-107); Estimated GFR-MDRD 41; Glucose 199 mg/dL (83-110); Potassium 4.3 mmol/L (3.5-5.1); Sodium 133 mmol/L (136-145)
--- NOTE | 2019-08-02 13:14 | EKG ---
Test Reason : Blood Pressure : / mmHG Vent. Rate : 070 BPM Atrial Rate : 070 BPM P-R Int : 142 ms QRS Dur : 134 ms QT Int : 458 ms P-R-T Axes : 000 063 043 degrees QTc Int : 494 ms Electronic atrial pacemaker Right bundle branch block Abnormal ECG Confirmed by VELASQUEZ PEREZ DO ([id number]), editor managing newspaper LINDEN NAYAK ([id number]) on 08/02/2019 1:14:22 PM Referred By: Confirmed By:VELASQUEZ PEREZ DO
--- NOTE | 2019-08-02 14:09 | PRG ---
DATE OF SERVICE: 08/02/2019 SUBJECTIVE: The patient is seen and examined at the bedside. She seems to be more lucent today and she answers better to my questions. She noticed that she is not able to express herself, she could not find some words. OBJECTIVE: VITAL SIGNS: Blood pressure is 150/68, pulse is 69, temperature is 98.3, respiratory rate is 16, O2 saturation is 98% on room air. HEENT: Her head is atraumatic and normocephalic. Eyes are PERRLA. Sclerae are nonicteric. Oral mucosa is moist. NECK: Supple. LUNGS: Clear. HEART: S1 and S2 normal. No S3. No S4. ABDOMEN: Soft, obese, nontender. EXTREMITIES: No clubbing, cyanosis, or edema. NEUROLOGICAL: She follows my commands. She is alert and oriented x2. She moves all 4 extremities. Her speech is not slurred, but it looks like she has some trouble with expressing herself. LABORATORY DATA: Sodium of 133, potassium 4.3, chloride 100, CO2 of 22, BUN 21, creatinine 1.25. Glycemia is ranging from 158 to 199, calcium 9.2. Echocardiogram showed LVEF of 60% to 65%, normal right ventricular size and function, pacemaker lead in the right ventricle. Left atrium is moderately dilated and the right atrium is moderately dilated too. Otherwise, no major problems. Ultrasound of the carotids showed no sonographic evidence for hemodynamically significant internal carotid artery stenosis. IMPRESSION: 1. Subacute left parietal lobe cerebrovascular accident. 2. Diabetes mellitus. 3. Dementia. 4. Paroxysmal atrial fibrillation. 5. Pacemaker. 6. Gastroesophageal reflux disease. 7. Overactive bladder. 8. Parkinson disease. 9. Glaucoma. 10. Hyperlipidemia. 11. Hypertension. DISCUSSION: The patient was seen by Dr. Burns, who does not have more recommendations than just continue her current regimen since she is on Xarelto for her heart and paroxysmal atrial fibrillation. Her echocardiogram came back relatively normal and there was no blockages in the carotid arteries, so she will stay on the current regimen. She is going to be watched additional 24 hours since Stroke Unit to make sure she does not get any worse and most likely she will be discharged back to her place, where she lives, tomorrow morning. Job ID: [id number]
[2019-08-02] MEDS: Levothyroxine Sodium 88 MCG TAB PO SCH (21:27)
[2019-08-02] MEDS: Simvastatin 20 MG TAB PO SCH (21:28)
[2019-08-02] MEDS ORDERED: Lorazepam 2 MG/ML VIAL SLOW IVP SCH (21:45)
[2019-08-03] MEDS: HumaLOG 300 UNITS/3 ML VIAL SC PRN ×2 (06:57→11:56)
[2019-08-03] MEDS: Docusate 100 MG CAP PO SCH (09:18)
[2019-08-03] MEDS: Trospium 20 MG TAB PO SCH (09:18)
[2019-08-03] MEDS: Donepezil HCl 5 MG TAB PO SCH (09:18)
[2019-08-03] MEDS: Rivaroxaban 10 MG TAB PO SCH (09:18)
[2019-08-03] MEDS: Timolol 0.5% Ophth Soln 5 ml Bottle L EYE SCH (09:19)
[2019-08-03] MEDS: Milk Of Magnesia 30 ML UDCUP PO SCH (09:21)
[2019-08-03 11:15] VITALS: BP 178/78; TEMP 98.9
[2019-08-03] MEDS ORDERED: Amlodipine 5 MG TAB PO SCH (11:45)
--- NOTE | 2019-08-03 11:56 | DIS ---
DATE OF ADMISSION: 08/01/2019 DATE OF DISCHARGE: 08/03/2019 FINAL DIAGNOSES: 1. Subacute left parietal lobe cerebrovascular accident. 2. Diabetes mellitus. 3. Dementia. 4. Paroxysmal atrial fibrillation. 5. Pacemaker. 6. Gastroesophageal reflux disease. 7. Overactive bladder. 8. Parkinson disease. 9. Glaucoma. 10. Hyperlipidemia. 11. Hypertension. ARCHEOLOGY FACULTY MEMBER: Dr. Burns, Neurology Service. HOSPITAL COURSE: The patient is an 88-year-old female, intermediate resident, who was sent to the emergency room for evaluation of her mental status changes. Apparently, she had some dizziness and confusion, which were worse in the setting of dementia. In the emergency room, she denied any nausea or vomiting. No chest pain, headache, dysuria, fever, or chills. Apparently, she had some slurred speech, which was not observed by EMS or emergency room staff. The patient was already taking Xarelto for her heart. While in the emergency room, her evaluation showed a white count of 6.3, hemoglobin 11.7, hematocrit 35.7, platelet count 227,000. Sodium was 132, potassium 5.0, chloride 100, CO2 of 26, BUN 19, creatinine 1.28, glucose 189. Third generation TSH was 1.3184. Urinalysis was within normal limits. Toxicology did not show any positive findings. Her images showed chest x-ray, cardiomegaly and increased vascular congestion, which was mild. Brain CT showed left parietal lobe area of subacute infarction, and electrocardiogram showed electronic atrial pacemaker with right bundle-branch block. The patient got admitted to the hospital. She was continued on her Xarelto. She was seen by Dr. Burns for Neurology consultation, who did not recommend any changes to her regimen and he recommended to continue her Xarelto. Since her pacer was not compatible with MRI, we were not able to get the MRI to be done. Her echocardiogram came back showing LVEF of 60% to 65%, normal right ventricular size and function. There was moderately enlarged right atrium and mild tricuspid regurgitation along with mild pulmonic regurgitation. Carotid Doppler did not show any sonographic evidence for hemodynamically significant internal carotid artery stenosis. The patient is doing well. Her blood pressure is 178/78, pulse is 61, temperature is 98.9, respiratory rate is 16, O2 saturation is 94% on room air. The patient is seen and examined before she is discharged back to her intermediate. We think that the slightly elevated blood pressure is necessary to have good perfusion in the brain of this elderly person and the blood pressure should be gradually coming down with time. If not, this will be addressed by her primary care physician in the next week when she is supposed to follow up with him or her. MEDICATIONS: At the time of discharge; 1. Glipizide 2.5 mg every morning. 2. Aricept 5 mg once a day. 3. Colace 100 mg once a day. 4. Levothyroxine 88 mcg daily. 5. Magnesium hydroxide 5 mL twice a day scheduled. 6. Metoprolol 100 mg at bedtime. 7. Myrbetriq 25 mg daily. 8. Pantoprazole 40 mg daily. 9. Xarelto 20 mg daily. 10. Zocor 20 mg at bedtime. 11. Tramadol 50 mg twice a day p.r.n. as needed. 12. Trospium 20 mg twice a day. DIET: The patient is going to stay on diabetic diet. ACTIVITIES: As tolerated. She will get PT and Speech Therapy in the intermediate. TIME SPENT: Time spent on this discharge is less than 30 minutes. Job ID: [id number]
--- NOTE | 2019-08-06 05:50 | PQF ---
[employer] Crystal Reports Winform ViewerPETTRadha,PHIL SHETH MD [id number] [facility] [place] [id number] CLINICAL DOCUMENTATION CLARIFICATION FORM: POST DISCHARGE Addendum to original discharge summary date: ____ Late entry note date: __ DATE: 08/06/19 ATTN: Phil Pagan Please exercise your independent, professional judgment in responding to the clarification form. Clinical indicators are provided on the bottom of this form for your review Can you please further specify the diagnosis based on the clinical indicators below? Please check appropriate box(s): [ ] Encephalopathy: Type: [ ] Acute [ x] Subacute [ ] Chronic Etiology: [ ] Hypertensive [ ] Metabolic [ ] Toxic [ ] Unspecified [ x ] in the setting of underlying dementia [ ] Other (please specify) [ ] Transient Alteration of Awareness [ ] Other diagnosis please specify [ ] Unable to determine In addition, please specify: Present on Admission (POA): [ ] Yes [ ] No [ ] Unable to determine For continuity of documentation, please document condition throughout progress notes and discharge summary. Thank You. CLINICAL INDICATORS - SIGNS / SYMPTOMS / LABS ED PAGE 1- pt is still confused ED- "GCS total 15" H&P 08/01/19 page 1- "mental status changes" H&P 08/01/19 page 1- "she had some dizziness and confusion, which is worse than what is usually is, although she has a history of dementia" Consult 08/02/19 page 1- she reports that she has a bit of difficulty finding her words, but can comprehend what people are saying DS 08/03 page 1- "Subacute left parietal lobe cerebrovascular accident" RISK FACTORS Subacute left parietal lobe cerebrovascular accident-DS 08/03 page 1 type 2 diabetes mellitus- H and P pg.1 Parkinson's disease- H and P pg.1 Essential hypertension- H and P pg.1 TREATMENTS: IV Fluids- AR 08/01 CT Brain 08/01 (This form is maintained as a part of the permanent medical record) 2014 [employer]. All Rights Reserved [email or web address] [not provided] MTDD
== END 2019-08-03 13:22 | DRG 66 ==
LOC: ERS 08:59 → 2SE 10:18
PROVIDERS: ADMIT Internal Medicine; ATTEND Internal Medicine
DX: I63.9 Cerebral infarction, unspecified (principal); E11.9 Type 2 diabetes mellitus without complications; G20 Parkinson's disease; F02.80 Dementia in other diseases classified elsewhere, unspecified severity, without behavioral disturbance, psychotic disturbance, mood disturbance, and anxiety; H40.9 Unspecified glaucoma; I10 Essential (primary) hypertension; I48.0 Paroxysmal atrial fibrillation; K59.00 Constipation, unspecified; N32.81 Overactive bladder; E78.5 Hyperlipidemia, unspecified; K21.9 Gastro-esophageal reflux disease without esophagitis; R47.81 Slurred speech; R40.2362 Coma scale, best motor response, obeys commands, at arrival to emergency department; R40.2142 Coma scale, eyes open, spontaneous, at arrival to emergency department; R40.2252 Coma scale, best verbal response, oriented, at arrival to emergency department; F32.9 Major depressive disorder, single episode, unspecified; R29.702 NIHSS score 2; Z90.49 Acquired absence of other specified parts of digestive tract; Z79.84 Long term (current) use of oral hypoglycemic drugs; Z79.01 Long term (current) use of anticoagulants; Z79.899 Other long term (current) drug therapy; Z88.8 Allergy status to other drugs, medicaments and biological substances; Z95.0 Presence of cardiac pacemaker; Z91.81 History of falling; Z93.3 Colostomy status; E78.00 Pure hypercholesterolemia, unspecified; E03.9 Hypothyroidism, unspecified; I45.10 Unspecified right bundle-branch block
CPT/HCPCS: 36415; 36416; 51701; 70450; 71045; 80048; 80053; 80307; 81003; 84443; 84484; 85025; 93005; 93306; 93880; 96360; 96361; A4353; J2060

== ENCOUNTER 2019-10-29 11:09 | Observation (INO) | payer MEDICARE, OTHER ==
[2019-10-29] MEDS ORDERED: Nitroglycerin 2% Ointment 1 INCH/1 GM Packet ONE (12:31)
[2019-10-29] MEDS ORDERED: Aspirin Chewable 81 MG TAB ONE (12:31)
[2019-10-29 13:47] LABS: #Eosinphils 0.2 thou/uL (0.0-0.7); #Lymphocytes 1.4 thou/uL (1.20-3.40); #Monocytes 0.6 thou/uL (0.11-0.59); #Neutrophils 4.7 thou/uL (1.40-6.50); %Basophils 0.4 % (0.0-1.0); %Eosinophils 2.4 % (0.0-10.0); %Lymphocytes 19.7 % (21.0-51.0); %Monocytes 9.1 % (0.0-10.0); %Neutrophils 68.4 % (42.0-75.0); Hemoglobin 11.9 g/dL (12.0-16.0); Mean Corpuscular HGB CONC 31.7 g/dL (32.0-36.0); Mean Corpuscular Volume 82.1 fL (78.0-98.0); Mean Platelet Volume 7.9 fL (7.4-10.4); Platelet Count 254 thou/uL (130-400); RBC Distribution Width 17.1 % (11.5-14.5); Red Blood Cell (RBC) Count 4.58 mill/uL (4.20-5.40); White Blood Cell (WBC) Count 6.9 thou/uL (4.8-10.8)
[2019-10-29 14:14] LABS: ALT (SGPT) 10 U/L (8-55); AST (SGOT) 17 U/L (5-34); Albumin 4.2 g/dL (3.4-4.8); Alkaline Phosphatase 94 U/L (40-110); Anion Gap 15 mmol/L (10-20); BUN (Urea Nitrogen) 21 mg/dL (9.8-20.1); Bilirubin, Total 0.8 mg/dL (0.2-1.2); Calc. Creatinine Clearance 0 mL/min (70-130); Calcium 9.4 mg/dL (7.8-10.44); Carbon Dioxide 24 mmol/L (23-31); Chloride 103 mmol/L (98-107); Estimated GFR-MDRD 36; Globulin 2.8 g/dL (2.4-3.5); Glucose 144 mg/dL (83-110); Lipase 14 U/L (8-78); Potassium 4.7 mmol/L (3.5-5.1); Sodium 137 mmol/L (136-145)
--- NOTE | 2019-10-29 14:20 | RAD ---
CHEST 1 VIEW: Date: 11/08/19 HISTORY: Armpit pain after exercising. COMPARISON: 08/01/19. FINDINGS: Minimal cardiomegaly. Left ICD. No confluent pneumonia, overt edema, or pleural effusion. No pneumoth orax. IMPRESSION: Cardiomegaly. No evidence for other significant acute process. Stable from prior study. POS: TPC
--- NOTE | 2019-10-29 16:53 | PDOC.FPRHP ---
- History of Present Illness Chief Complaint: Arm pain History of Present Illness: Unable to obtain accurate history from patient. She is not able to finish sentences and had poor short term memory. Pt is not able to reliably give me history. Per pt ER nurse she was sent over from care home due to reported chest pain when she was excersising. ER nurse states she tried calling the care home to get more history but the nurse who sent her over had left. Pt had no complaints at time of evaluation. Per ER doctor he states when he got here he got EKG and noted some A.fib w/ RVR. He states he then continued workup and she quickly went into rate control without intervention. Pt has pacemaker and it was interogated. It noted atrial arrhythmias in recent past. The pacemaker only seemed to be intermitently pacing patient. - Allergies/Adverse Reactions Allergies Allergy/AdvReac Type Severity Reaction Status Date / Time haloperidol [From Haldol] Allergy Verified 10/29/19 21:08 NSAIDS (Non-Steroidal Allergy Verified 10/29/19 21:08 Anti-Inflamma metoclopramide HCl AdvReac Severe Verified 10/29/19 21:08 [From Reglan] - Home Medications Medication Instructions Recorded Confirmed Type Acetaminophen [Acetaminophen Extra 1 - 2 tab PO Q6HR PRN 04/11/18 10/29/19 History Strength] Donepezil HCl [Aricept] 5 mg PO DAILY 04/11/18 10/29/19 History Levothyroxine Sodium [Tirosint] 88 mcg PO HS 04/11/18 10/29/19 History Magnesium Hydroxide [Milk of 5 ml PO BID 04/11/18 10/29/19 History Magnesia] Ondansetron [Zofran ODT] 4 mg PO Q4HR PRN 04/11/18 10/29/19 History Pantoprazole Sodium 40 mg PO DAILY 04/11/18 10/29/19 History Simvastatin 20 mg PO HS 04/11/18 10/29/19 History Solifenacin Succinate [Vesicare] 10 mg PO DAILY 04/11/18 10/29/19 History Timolol Maleate [Timolol Maleate 1 drop L EYE DAILY 04/11/18 10/29/19 History 0.5% Ophth SolN] Docusate [Colace] 100 mg PO DAILY 08/01/19 10/29/19 History Mirabegron [Myrbetriq ER] 25 mg PO DAILY 08/01/19 10/29/19 History glipiZIDE [glipiZIDE XL] 5 mg PO DAILY 08/01/19 10/29/19 History guaiFENesin [Mucinex] 600 mg PO HS 10/29/19 10/29/19 History Metoprolol Succinate [Toprol XL] 150 mg PO DAILY #42 tab 10/30/19 Rx Rivaroxaban [Xarelto] 15 mg PO QPM-WM #14 tab 10/30/19 Rx - History PMHx: Type II DM, Dementia, Parkinsons, Glaucoma, HTN, Paroxysmal A.fib, GERD, Overactive bladder, HLD, HypoK, Depression PSHx: Obtained from past H&P. Colostomy, R. Mastectomy due to precancerous lesion, Hernia Repair, Hysterectomy FHx: Unable to obtain. Social: She lives at care home, [facility]. No hx of cigarette smoking, alcohol intake in any significant amounts of illict drug use. - Review of Systems ROS unobtainable: due to mental status - Vital signs BP: [] HR: [84] RR: [18] Tmax: [99] Pox: [95]% on [RA] Wt: [] - Physical Exam -Constitutional: Pt is awake. Pt is pleasant. Pt is only oriented to person. Pt is aware of where she lives but can't even recall any of the events that occurred earlier today. HEENT: normocephalic and atraumatic, grossly normal vision, grossly normal hearing, normal nasal mucosa, MMM Neck: supple, trachea midline Chest: no-tender to palpation Heart: no murmurs/rubs/gallops, other (trace edema noted) -Heart: Irregularly irregular. Rate normal. Lungs: CTAB, no respiratory distress, no rales/rhonchi, no wheezing -Lungs: Hard to auscultate 2/2 patient body habitus. Abdomen: soft, non-tender, bowel sounds present, no masses/distention, no hernias, other (Osteomy intact. No sign of redness or infection. Draining well.) Neurological: no focal deficit, normal sensation -Neurological: Hard to fully analyze full neuro exam due to patients mental capacity. Skin: no rash/lesions Heme/Lymphatic: no unusual bruising or bleeding, no purpura, no petechia -Psychiatric: ONly oriented to person. Pt short term memory severly impaired. Pt has trouble with word finding. FMR H&P: Results - Labs Result Diagrams: 10/29/19 13:34 10/29/19 13:34 Lab results: WBC 6.9 thou/uL (4.8-10.8) 10/29/19 13:34 Hgb 11.9 g/dL (12.0-16.0) L 10/29/19 13:34 Hct 37.6 % (36.0-47.0) 10/29/19 13:34 MCV 82.1 fL (78.0-98.0) 10/29/19 13:34 Plt Count 254 thou/uL (130-400) 10/29/19 13:34 Neutrophils % 68.4 % (42.0-75.0) 10/29/19 13:34 Sodium 137 mmol/L (136-145) 10/29/19 13:34 Potassium 4.7 mmol/L (3.5-5.1) 10/29/19 13:34 Chloride 103 mmol/L (98-107) 10/29/19 13:34 Carbon Dioxide 24 mmol/L (23-31) 10/29/19 13:34 BUN 21 mg/dL (9.8-20.1) H 10/29/19 13:34 Creatinine 1.39 mg/dL (0.6-1.1) H 10/29/19 13:34 Glucose 144 mg/dL (83-110) H 10/29/19 13:34 Calcium 9.4 mg/dL (7.8-10.44) 10/29/19 13:34 Total Bilirubin 0.8 mg/dL (0.2-1.2) 10/29/19 13:34 AST 17 U/L (5-34) 10/29/19 13:34 ALT 10 U/L (8-55) 10/29/19 13:34 Alkaline Phosphatase 94 U/L (40-110) 10/29/19 13:34 B-Natriuretic Peptide 796.0 pg/mL (0-100) H 10/29/19 13:34 Serum Total Protein 7.0 g/dL (6.0-8.3) 10/29/19 13:34 Albumin 4.2 g/dL (3.4-4.8) 10/29/19 13:34 Lipase 14 U/L (8-78) 10/29/19 13:34 - EKG Interpretation EKG: A. fib w/ PVC, RBBB, Intermittent atrial pacemaker. - Radiology Interpretation Chest x-ray Status: image reviewed by me, report reviewed by me (Cardiomegaly, no acute process.) FMR H&P: A/P - Problem List (1) Atrial fibrillation Status: Chronic Code(s): I48.91 - UNSPECIFIED ATRIAL FIBRILLATION (2) Colostomy in place Status: Chronic Code(s): Z93.3 - COLOSTOMY STATUS (3) Dementia Status: Chronic Code(s): F03.90 - UNSPECIFIED DEMENTIA WITHOUT BEHAVIORAL DISTURBANCE (4) Diabetes type 2, controlled Status: Chronic Code(s): E11.9 - TYPE 2 DIABETES MELLITUS WITHOUT COMPLICATIONS (5) Dyslipidemia Status: Chronic Code(s): E78.5 - HYPERLIPIDEMIA, UNSPECIFIED (6) Hypertension Status: Chronic Code(s): I10 - ESSENTIAL (PRIMARY) HYPERTENSION (7) Hypothyroidism Status: Chronic Code(s): E03.9 - HYPOTHYROIDISM, UNSPECIFIED (8) Parkinson disease Status: Chronic Code(s): G20 - PARKINSON'S DISEASE (9) CKD (chronic kidney disease) stage 3, GFR 30-59 ml/min Status: Chronic Code(s): N18.3 - CHRONIC KIDNEY DISEASE, STAGE 3 (MODERATE) - Plan A. fib w/ brief episode of RVR -Pt's pacemaker when interrogated per ER showed hx of atrial arrhythmias recently. Pacemaker only intermittently pacing on monitor. -Some concern for flutter. -Trop .022 will continue to trend. -Will consult cardiology in AM -rate controlled at this time. Will continue home metoprolol and xarelto for anticoagulation. Atypical Chest pain -Per care home pt had reported chest pain. -Will trend trop. -BNP 700's. Pt had ECHO back on last admission 08/01-08/03. EF 60-65%. Overall normal exam. No sign of acute fluid overload. Will hold on diuresis at this time as pt is in no acute distress. DMII -held glipizide. -Accuchecks ACHS. Mild SSI HTN -continue home meds. Adjust as needed Dementia/Parkinsons -continue home meds. Pt pleasantly confused. No acute distress or behavior concerns. HLD -continue statin. Had lipid panel recently checked backed in 02/28 and was WNL. Colostomy in place -supportive care. No sign of abnormality GERD -continue home meds. Dispo: Admit to tele. Continuous monitoring. Trend trops. Consult cards for pacemaker recs in morning. Addendum - Attending - Attending Attestation Date/Time: 10/31/19 9431 I personally evaluated the patient and discussed the management with Dr. Haque at time of admission. I agree with the History, Examination, Assessment and Plan documented above with any addition or exceptions noted below.
[2019-10-29 17:34] LABS: Troponin I Less than 0.010 ng/mL (< 0.028)
[2019-10-29] MEDS ORDERED: Dextrose 5% in Water 1,000 ML IV PRN (18:47)
[2019-10-29] MEDS ORDERED: traMADol HCl 50 MG TAB PO PRN (18:47)
[2019-10-29] MEDS ORDERED: Dextrose 50% Abboject 50 ML SYRINGE SLOW IVP PRN (18:47)
[2019-10-29] MEDS ORDERED: HumaLOG 300 UNITS/3 ML VIAL SC PRN ×2 (18:47)
[2019-10-29 19:00] VITALS: BMI 35.6
[2019-10-29 19:13] LABS: Magnesium 1.9 mg/dL (1.6-2.6); Phosphorus 2.9 mg/dL (2.3-4.7)
[2019-10-29 20:22] LABS: Troponin I 0.031 ng/mL (< 0.028)
[2019-10-29] MEDS ORDERED: Atorvastatin Calcium 10 MG TAB PO SCH (21:00)
[2019-10-29 23:10] LABS: CKMB 2.1 ng/mL (0-6.6)
[2019-10-30 05:18] LABS: CKMB 2.2 ng/mL (0-6.6)
[2019-10-30] MEDS ORDERED: Levothyroxine Sodium 88 MCG TAB PO SCH (06:00)
--- NOTE | 2019-10-30 06:25 | PDOC.FM ---
- Subjective Subjective: 88 yo F with dementia presents from snf for chest pain with episode of afib with RVR yesterday that resolved on it's own. Today she had an episode of afib in 120s for 2 minutes around 8 AM. Patient is very angry and upset today, stating that she has been kidnapped by the staff here and saying once she gets out she will avis us. She wants to know what is going on. She has been yelling down the hallways at nursing staff. Patient denies chest pain, SOB. - Objective Vital Signs & Weight: Vital Signs (12 hours) Temp Pulse Resp BP Pulse Ox 10/30/19 03:32 97.8 F 86 20 164/101 H 95 Weight Weight 89.811 kg I&O: 10/28/19 10/29/19 10/30/19 06:59 06:59 06:59 Intake Total 240 Output Total 300 Balance -60 Result Diagrams: 10/29/19 13:34 10/29/19 13:34 Phys Exam - Physical Examination Patient is very angry Respiratory: no wheezing, clear to auscultation bilateral irregularly irregular rhythm, no murmurs Gastrointestinal: soft, non-tender obese Musculoskeletal: no edema, pulses present Neurological: moves all 4 limbs Deviation from normal: angry affect, guarded Skin: normal turgor, cap refill <2 seconds Dx/Plan (1) Atrial fibrillation with RVR Code(s): I48.91 - UNSPECIFIED ATRIAL FIBRILLATION Status: Acute (2) Glaucoma Code(s): H40.9 - UNSPECIFIED GLAUCOMA Status: Chronic (3) GERD (gastroesophageal reflux disease) Code(s): K21.9 - GASTRO-ESOPHAGEAL REFLUX DISEASE WITHOUT ESOPHAGITIS Status: Chronic (4) HLD (hyperlipidemia) Code(s): E78.5 - HYPERLIPIDEMIA, UNSPECIFIED Status: Chronic (5) CKD (chronic kidney disease) stage 3, GFR 30-59 ml/min Code(s): N18.3 - CHRONIC KIDNEY DISEASE, STAGE 3 (MODERATE) Status: Chronic (6) Atrial fibrillation Code(s): I48.91 - UNSPECIFIED ATRIAL FIBRILLATION Status: Chronic (7) Colostomy in place Code(s): Z93.3 - COLOSTOMY STATUS Status: Chronic (8) Dementia Code(s): F03.90 - UNSPECIFIED DEMENTIA WITHOUT BEHAVIORAL DISTURBANCE Status: Chronic (9) Diabetes type 2, controlled Code(s): E11.9 - TYPE 2 DIABETES MELLITUS WITHOUT COMPLICATIONS Status: Chronic (10) Hypertension Code(s): I10 - ESSENTIAL (PRIMARY) HYPERTENSION Status: Chronic (11) Hypothyroidism Code(s): E03.9 - HYPOTHYROIDISM, UNSPECIFIED Status: Chronic (12) Parkinson disease Code(s): G20 - PARKINSON'S DISEASE Status: Chronic - Plan Plan: A. fib w/ brief episode of RVR -Pt's pacemaker when interrogated per ER showed hx of atrial arrhythmias recently. Pacemaker only intermittently pacing on monitor. -Trop stable, CK wnl -Will consult cardiology this AM -rate controlled, continue home metoprolol and xarelto for anticoagulation. Atypical Chest pain -Per snf pt had reported chest pain. -Trops stable -BNP 700's. Pt had ECHO back on last admission 08/01-08/03. EF 60-65%.CXR no fluid overload. No sign of acute fluid overload on exam. DMII -held glipizide. -Accuchecks ACHS. Mild SSI HTN -continue home meds. Adjust as needed Dementia/Parkinsons -continue home meds. Pt confused. HLD -continue statin. Had lipid panel recently checked backed in 02/28 and was WNL. Colostomy in place -Unsure why she has colostomy. Change as needed GERD -continue home meds. Levothyroxine -TSH wnl. Continue home medication Dispo: Consult cardiology today. Addendum - Attending - Attending Attestation Date/Time: 10/30/19 [id number] I personally evaluated the patient and discussed the management with Dr. Guerra I agree with the History, Examination, Assessment and Plan documented above with any addition or exceptions noted below. This pt came in afib with RVR and is now rate controlled. Her chest pain is also improved at this point. We will consult cardiology to come and evaluate this pt. Pt states she feels near her baseline at this time.
[2019-10-30] MEDS ORDERED: Donepezil HCl 5 MG TAB PO SCH (09:00)
[2019-10-30] MEDS ORDERED: Docusate 100 MG CAP PO SCH (09:00)
[2019-10-30] MEDS ORDERED: Timolol 0.5% Ophth Soln 5 ml Bottle L EYE SCH (09:00)
[2019-10-30 15:16] VITALS: BP 140/74; TEMP 98.4
[2019-10-30] MEDS ORDERED: Rivaroxaban 10 MG TAB PO SCH ×2 (17:00)
--- NOTE | 2019-10-30 19:11 | CON ---
DATE OF CONSULTATION: creatinine high at her age. Job ID: [id number]
--- NOTE | 2019-10-30 19:28 | CON ---
DATE OF CONSULTATION: HISTORY OF PRESENT ILLNESS: The patient is an 88-year-old woman with a history of atrial fibrillation, who presented with pain under her right armpit. The patient has a previous history of pacemaker placement and atrial fibrillation. She was recently hospitalized with a cerebrovascular accident. The patient presented after she developed pain under her right armpit. The patient denied having any chest pain. The patient denies having any dyspnea or palpitations. PAST MEDICAL HISTORY: 1. Atrial fibrillation. 2. Hypertension. 3. Glaucoma. 4. Hypothyroidism. PAST SURGICAL HISTORY: Eye surgery. SOCIAL HISTORY: Nonsmoker. FAMILY HISTORY: Positive family history of heart disease. ALLERGIES: NONSTEROIDAL MEDICATION, METOCLOPRAMIDE, AND HALDOL. PHYSICAL EXAMINATION: GENERAL: Confused woman, in no acute distress. VITAL SIGNS: Blood pressure 161/106. NECK: Showed no jugular venous distention. LUNGS: Clear to auscultation. HEART: Irregular rate and rhythm. Normal S1 and S2. ABDOMEN: Distended. EXTREMITIES: Showed trace edema. VASCULAR: Radial pulses 2+. LABORATORY DATA: Sodium 137, potassium 4.7, chloride 103, bicarbonate 24, BUN 21, creatinine 1.39. Troponin less than 0.01. White blood cell count 6.9, hemoglobin 11.9, hematocrit 37.6, platelets 254. EKG atrial fibrillation with a nonspecific T-wave abnormality. IMPRESSION: 1. Atrial fibrillation with rapid ventricular response. 2. Atypical right-sided pain. 3. Hypertension. 4. History of cerebrovascular accident. 5. Dementia. This patient was admitted with pain in her right arm. Cardiac enzymes are unremarkable. Her heart rate was elevated. We would recommend increasing the dose of her metoprolol. We will follow this patient with you through her hospitalization. Job ID: [id number] [facility]
--- NOTE | 2019-10-31 04:26 | DIS ---
DATE OF ADMISSION: 10/29/2019 DATE OF DISCHARGE: 10/30/2019 DISCHARGE ATTENDING: Josias Mars MD CONSULTS: Dr. Gonzales, cardiology, on 10/29/2019. PROCEDURES: Chest x-ray, 10/29/2019, cardiomegaly. No evidence of other significant acute process. Stable from prior study. PRIMARY DIAGNOSES: 1. Atrial fibrillation with rapid ventricular response. 2. Atypical chest pain. SECONDARY DIAGNOSES: 1. Diabetes mellitus type 2. 2. Hypertension. 3. Dementia. 4. Parkinson. 5. Hyperlipidemia. 6. Colostomy. 7. Gastroesophageal reflux disease. 8. Hypothyroidism. DISCHARGE MEDICATIONS: 1. Docusate 100 mg p.o. daily. 2. Donepezil 5 mg p.o. daily. 3. Levothyroxine 88 ____mcg p.o. at bedtime. 4. Metoprolol-XL 150 mg p.o. at bedtime. 5. Myrbetriq extended release 25 mg p.o. daily. 6. Pantoprazole 40 mg p.o. daily. 7. Xarelto 15 mg p.o. daily. 8. Simvastatin 20 mg p.o. at bedtime. 9. Timolol 1 drop left eye daily. 10. Tramadol 50 mg p.o. b.i.d. 11. Acetaminophen 500 mg 1-2 tabs p.o. q.6 hours p.r.n. for pain. 12. Glipizide 5 mg p.o. daily. 13. Guaifenesin 600 mg p.o. at bedtime. 14. Magnesium hydroxide 5 mL p.o. b.i.d. 15. Zofran 4 mg p.o. q.4 hours p.r.n. for nausea or vomiting. 16. Solifenacin 10 mg p.o. daily. Discontinued Medications: 1. Metoprolol ER 100 mg p.o. at bedtime. 2. Xarelto 20 mg p.o. daily. HISTORY OF PRESENT ILLNESS/HOSPITAL COURSE: An 88-year-old female presents from the [facility] for chest pain that happened while she was exercising. When the patient arrived to the ER, EKG showed atrial fibrillation with RVR. The patient quickly went to rate control without intervention. Pacemaker was interrogated and noted atrial arrhythmias in the past. Her TSH was checked as well as a mag and phosphorus, which were all within normal limits. The patient was admitted overnight and Dr. Gonzales was consulted. Her troponins were stable and her CK was within normal limits. Dr. Gonzales increased her dose of metoprolol and changed dose of Xarelto. The patient was stable for discharge back to the [facility]. The patient had no signs or symptoms of acute fluid overload, although her BNP was in the 700s on admission. Recent echo from 08/01 showed an ejection fraction of 60-65%. Her chest x-ray had no fluid overload. DISPOSITION: Stable. DISCHARGE INSTRUCTIONS: 1. Location: [facility]. 2. Diet: Heart healthy diabetic diet. 3. Activity: As tolerated. 4. Follow up: With PCP, Dr. Wilner [place] within 1 week. Job ID: [id number] MTDD
== END 2019-10-30 17:48 ==
LOC: ERS 11:09 → 2SW 15:18
PROVIDERS: ADMIT Family Medicine; ATTEND Family Medicine
DX: I48.0 Paroxysmal atrial fibrillation (principal); R07.89 Other chest pain; I12.9 Hypertensive chronic kidney disease with stage 1 through stage 4 chronic kidney disease, or unspecified chronic kidney disease; E11.22 Type 2 diabetes mellitus with diabetic chronic kidney disease; N18.3 Chronic kidney disease, stage 3 (moderate); F03.90 Unspecified dementia, unspecified severity, without behavioral disturbance, psychotic disturbance, mood disturbance, and anxiety; G20 Parkinson's disease; E78.5 Hyperlipidemia, unspecified; K21.9 Gastro-esophageal reflux disease without esophagitis; E03.9 Hypothyroidism, unspecified; N32.81 Overactive bladder; F32.9 Major depressive disorder, single episode, unspecified; H40.9 Unspecified glaucoma; Z86.73 Personal history of transient ischemic attack (TIA), and cerebral infarction without residual deficits; Z79.84 Long term (current) use of oral hypoglycemic drugs; Z79.899 Other long term (current) drug therapy; Z88.6 Allergy status to analgesic agent; Z88.8 Allergy status to other drugs, medicaments and biological substances; Z93.3 Colostomy status; Z95.0 Presence of cardiac pacemaker
CPT/HCPCS: 71045; 82553 ×2; 82962 ×2; 83690; 83735; 83880; 84100; 84484 ×3; 93005; 99285; G0378 ×3; 36415; 36416; 80053; 84443; 85025; 93010

== ENCOUNTER 2019-11-06 14:46 | Emergency (ER) | payer MEDICARE, OTHER ==
--- NOTE | 2019-11-06 15:26 | CT ---
Head CT without contrast 11/06/2019: COMPARISON: 08/01/2019 HISTORY: Fall, trauma, pain TECHNIQUE: Axial CT imaging at 5 mm intervals from vertex through skull base without contrast FINDINGS: Bilateral mildly impacted nasal bone fractures are suspected with slight rightward angulati on. There is partially imaged hyperdense material within the maxillary sinus on the right which may signify associated hemorrhage. There is a focal area of scalp swelling in the left frontal supraorbit al region. No associated calvarial fracture. No intracranial hemorrhage, midline shift, or mass effect. Stable area of left temporal lobe encephalomalacia. Encephalomalacia also noted in the superi or posterior left frontal lobe suggesting prior infarction. Stable prominence of the lateral ventricles. Subtle linear areas of hypodensity in the cerebellar hemispheres suggesting areas of prio r infarction. IMPRESSION: Supraorbital scalp swelling on the left. Findings suggesting bilateral nasal bone fractur es. Incompletely imaged right maxillary sinus contains new hyperdensity which may reflect hemorrhage. CT of the facial bones advised as clinically warranted.
--- NOTE | 2019-11-06 15:37 | CT ---
CT cervical spine without contrast: 11/06/2019 COMPARISON: None available HISTORY: Injury, trauma, pain TECHNIQUE: Axial CT imaging at 2.5 mm intervals through the cervical spine without contrast. Coronal and sagittal reformatted imaging obtained. FINDINGS: The C1 ring appears intact. Occipital condyles and dens demonstrate no acute findings. Ther e is prominent degenerative change at the atlantoaxial interspace. There is multilevel disc space narrowing with degenerative endplate change within the cervical spine including C3-4, C4-5, C5-6, and C6-7. Prominent bilateral facet hypertrophy noted as well, left greater than right, most significant at the C2-3, C3-4, and C4-5 levels. No significant anterolisthesis or retrolisthesis. No prevertebral soft tissue swelling. No displaced fracture or evidence of dislocation. Imaged lung apices appear grossly unremarkable. The re is a medialized retropharyngeal course of bilateral common carotid arteries. IMPRESSION: Prominent multilevel degenerative change. No displaced fracture or dislocation of the cer vical spine.
--- NOTE | 2019-11-06 15:38 | CT ---
CT facial bones: Multiple axial tones obtained through facial bones without contrast. Multiplanar reconstruction. INDICATIONS:Fall with injury to face COMPARISON:None FINDINGS: There is fracture of the right nasal bone with slight depression. Orbits appear intact. zygoma appear intact. Mucosal edema in the posterior right maxillary sinus. Possible air-fluid collection. No fracture of t he right maxillary sinus identified. Maxilla appears intact. Mandible appears intact. Soft tissues appear unremarkable. IMPRESSION: Fracture right nasal bones Mucosal thickening and air-fluid level right maxillary sinus
[2019-11-06] MEDS ORDERED: Adacel (T-DAP) 0.5 ML SYRINGE ONE (15:45)
[2019-11-06] MEDS ORDERED: CEFAZOLIN 1 GM VIAL ONE (16:07)
[2019-11-06] MEDS ORDERED: Lidocaine 1% w/Epinephrine 1:100K 20 ML VIAL ONE (16:21)
[2019-11-06] MEDS ORDERED: Lidocaine 1% PF 5 ML VIAL ONE (16:22)
[2019-11-06 16:54] LABS: #Eosinphils 0.1 thou/uL (0.0-0.7); #Monocytes 0.7 thou/uL (0.11-0.59); #Neutrophils 3.9 thou/uL (1.40-6.50); %Basophils 0.5 % (0.0-1.0); %Eosinophils 1.6 % (0.0-10.0); %Monocytes 11.3 % (0.0-10.0); %Neutrophils 68.6 % (42.0-75.0); Mean Corpuscular HGB CONC 32.2 g/dL (32.0-36.0); Mean Corpuscular Hemoglobin 26.2 pg (27.0-31.0); Mean Corpuscular Volume 81.4 fL (78.0-98.0); Mean Platelet Volume 7.7 fL (7.4-10.4); Platelet Count 242 thou/uL (130-400); RBC Distribution Width 17.5 % (11.5-14.5); Red Blood Cell (RBC) Count 4.21 mill/uL (4.20-5.40); White Blood Cell (WBC) Count 5.8 thou/uL (4.8-10.8)
[2019-11-06 17:01] LABS: INR-International Normal Ratio 3.9; Prothrombin Time 37.6 SEC (12.0-14.7)
[2019-11-06 17:19] LABS: ALT (SGPT) 11 U/L (8-55); AST (SGOT) 15 U/L (5-34); Albumin 3.9 g/dL (3.4-4.8); Alkaline Phosphatase 101 U/L (40-110); Anion Gap 13 mmol/L (10-20); BUN (Urea Nitrogen) 22 mg/dL (9.8-20.1); Bilirubin, Total 0.6 mg/dL (0.2-1.2); Calc. Creatinine Clearance 0 mL/min (70-130); Carbon Dioxide 26 mmol/L (23-31); Chloride 103 mmol/L (98-107); Estimated GFR-MDRD 31; Globulin 2.6 g/dL (2.4-3.5); Glucose 222 mg/dL (83-110); Potassium 4.3 mmol/L (3.5-5.1); Protein, Total 6.5 g/dL (6.0-8.3); Sodium 138 mmol/L (136-145)
== END 2019-11-06 18:37 | disposition home or self-care (01) ==
LOC: ERS 14:46
DX: S02.2XXA Fracture of nasal bones, initial encounter for closed fracture (principal); S01.21XA Laceration without foreign body of nose, initial encounter; E78.5 Hyperlipidemia, unspecified; E78.00 Pure hypercholesterolemia, unspecified; E03.9 Hypothyroidism, unspecified; E11.9 Type 2 diabetes mellitus without complications; K21.9 Gastro-esophageal reflux disease without esophagitis; I48.91 Unspecified atrial fibrillation; F32.9 Major depressive disorder, single episode, unspecified; E87.6 Hypokalemia; W07.XXXA Fall from chair, initial encounter
CPT/HCPCS: 12011; 36415; 70450; 70486; 72125; 80053; 85025; 85610; 85730; 86850; 86900; 86901; 90471; 90715; 96365; J0690; J2001

== ENCOUNTER 2020-08-04 14:22 | Inpatient (IN) | payer MEDICARE, OTHER ==
--- NOTE | 2020-08-04 15:40 | RAD ---
PORTABLE CHEST ONE VIEW: 08/04/20 at 3:27 p.m. HISTORY: Altered mental status. Slurred speech. COMPARISON: 10/29/19. FINDINGS: The heart is enlarged. Left sided pacemaker device remains in place. No lobar consolidation, pneumoth oraces, carmen pulmonary edema or pleural effusions are seen. IMPRESSION: Stable exam. No acute process. POS: AH
[2020-08-04 16:19] LABS: #Eosinphils 0.2 thou/uL (0.0-0.7); #Lymphocytes 0.9 thou/uL (1.20-3.40); #Monocytes 0.8 thou/uL (0.11-0.59); #Neutrophils 4.6 thou/uL (1.40-6.50); %Basophils 0.4 % (0.0-1.0); %Eosinophils 3.7 % (0.0-10.0); %Lymphocytes 14.1 % (21.0-51.0); %Monocytes 12.2 % (0.0-10.0); %Neutrophils 69.5 % (42.0-75.0); Hemoglobin 10.9 g/dL (12.0-16.0); Mean Corpuscular HGB CONC 31.1 g/dL (32.0-36.0); Mean Corpuscular Hemoglobin 26.8 pg (27.0-31.0); Mean Corpuscular Volume 86.2 fL (78.0-98.0); Mean Platelet Volume 7.4 fL (7.4-10.4); Platelet Count 278 thou/uL (130-400); RBC Distribution Width 17.2 % (11.5-14.5); Red Blood Cell (RBC) Count 4.09 mill/uL (4.20-5.40); White Blood Cell (WBC) Count 6.5 thou/uL (4.8-10.8)
[2020-08-04] MEDS ORDERED: Iopamidol-370 76% 500 ML 1 ML ONE (16:22)
--- NOTE | 2020-08-04 16:39 | CT ---
CT BRAIN WITHOUT CONTRAST: 08/04/20 HISTORY: Altered mental status. COMPARISON: 11/06/19. FINDINGS: Changes of cortical atrophy and old infarctions in the posterior left frontal lobe and left temporal lobe are again seen. The ventricular size is stable and the basilar cisterns patent. No evidence of acute infarct, hemorrhage, midline shift, or abnormal extra-axial fluid collections ar e seen. The bony calvarium appears intact. The visualized paranasal sinuses and mastoid air cells are well aerated. There is soft tissue air in the right bridal service sales and management space. The adjacent visualized bones of the patient' s skeleton appear intact. Etiology of this is uncertain. IMPRESSION: 1. No CT evidence of acute intracranial process. 2. Soft tissue air in the right bridal service sales and management space. Further evaluation with a contrast enhanced CT scan of the neck is recommended. Discussed over the telephone with ER physician, Dr. Tyler Montero at 4:05 p.m.
[2020-08-04 16:45] LABS: ALT (SGPT) 10 U/L (8-55); AST (SGOT) 20 U/L (5-34); Alkaline Phosphatase 121 U/L (40-110); Anion Gap 15 mmol/L (10-20); BUN (Urea Nitrogen) 24 mg/dL (9.8-20.1); Bilirubin, Total 0.5 mg/dL (0.2-1.2); Calc. Creatinine Clearance 0 mL/min (70-130); Calcium 8.7 mg/dL (7.8-10.44); Carbon Dioxide 22 mmol/L (23-31); Chloride 106 mmol/L (98-107); Estimated GFR-MDRD 52; Globulin 2.9 g/dL (2.4-3.5); Glucose 85 mg/dL (83-110); Lipase 10 U/L (8-78); Potassium 4.4 mmol/L (3.5-5.1); Protein, Total 6.9 g/dL (6.0-8.3); Sodium 139 mmol/L (136-145)
[2020-08-04 16:51] LABS: Bilirubin Negative (Negative); Blood, Urine Trace (Negative); Clarity Clear (Clear); Glucose, Urine (Dipstick) Normal (Negative); Ketone, Urine Negative (Negative); Leukocyte Negative Leu/uL (Negative); Nitrite Negative (Negative); Protein, Urine (Dipstick) 30 mg/dL (Neg-Trace); Specific Gravity, Urine 1.015 (1.002-1.036); Squamous Epithelial 0-3 HPF (0-3); Urobilinogen Normal mg/dL (Less than 2); WBC/HPF 0-3 HPF (0-3); pH, Urine 6.5 (5.0-9.0)
[2020-08-04 17:04] LABS: Bacteria/HPF Rare-Few HPF (None Seen)
--- NOTE | 2020-08-04 19:19 | CT ---
CT SOFT TISSUE NECK WITH IV CONTRAST: 08/04/20 PROVIDED CLINICAL HISTORY: Pain. FINDINGS: No comparisons. The parotid and submandibular glands appear unremarkable. There is no evidence for regional lymph nod e enlargement. The oropharynx, oral cavity and hypopharynx appear unremarkable. The epiglottis and ar yepiglottic folds appear normal. There is no prevertebral soft tissue swelling apparent. The trachea and visualized airway appear patent and of normal caliber. The visualized lung apices appear clear. Vascular calcification is noted including coronary calcium. There is no evidence for high grade calci fied stenosis involving the great vessels of the neck. There is reflux of contrast material demonstra melba in the left upper extremity to the external jugular and internal jugular veins on the left. This may reflect some degree of obstruction of the left brachiocephalic vein. This could be on the basis o f indwelling cardiac pacing device. The osseous structures demonstrate no concerning lytic or blastic lesions. Advanced multilevel cervic al degenerative changes are seen. IMPRESSION: No evidence for an acute process. Chronic findings as above. POS: NIECY
[2020-08-04] MEDS ORDERED: Dextrose 5% in Water 1,000 ML IV PRN (19:27)
[2020-08-04] MEDS ORDERED: HumaLOG 300 UNITS/3 ML VIAL SC PRN ×2 (19:27)
[2020-08-04] MEDS ORDERED: Dextrose 50% Abboject 50 ML SYRINGE SLOW IVP PRN (19:27)
--- NOTE | 2020-08-04 20:30 | PDOC.HHP ---
Hospitalist HPI - History of Present Illness AMS History of Present Illness: PCP: Josh Butler Patient is a 89-year-old female with history of dementia, atrial fibrillation (currently on Xarelto), hyperlipidemia who was brought in by EMS from her half-way, [facility], for possible slurred speech. At patient's baseline she is normally alert and oriented x1 and tonight she is oriented to person only. Her history is obtained from her half-way papers. She was very talkative with the emergency room nurses but during our interview she refused to say anything. Once to the stroke unit patient did begin to talk again per nursing staff and had slurred speech. Staff states that she was not aware of why she was brought here and that she denies pain. No contact with sick persons per half-way. No change in bowel or bladder patterns reported. Of note patient was admitted exactly a year ago for the same symptoms of altered mental status and slurred speech and was diagnosed with a CVA, she resolved within a day and was able to return to her half-way. ED Course: VITAL SIGNS SunAug 04, 2020 14:36 DARLENE Darby Daylee BP: 153/90, Pulse: 87, Resp: 20, Temp: 98.3 (Oral), Pain: 0, O2 sat: 93 on (Room Air), Time: 08/04/2020 14:36. VITAL SIGNS SunAug 04, 2020 15:35 DARLENE Darby Daylee BP: 161/124, Pulse: 87, Resp: 20, Pain: 0, O2 sat: 94 on (Room Air), Time: 08/04/2020 15:35. VITAL SIGNS SunAug 04, 2020 16:35 DARLENE Darby Daylee BP: 127/93, Pulse: 102, Resp: 18, Pain: 0, O2 sat: 94 on (Room Air), Time: 08/04/2020 16:35. VITAL SIGNS SunAug 04, 2020 17:51 DARLENE Darby Daylee BP: 139/101, Pulse: 95, Resp: 18, Pain: 0, O2 sat: 94 on (Room Air), Time: 08/04/2020 17:51. VITAL SIGNS SunAug 04, 2020 19:03 DARLENE Darby Daylee BP: 143/87, Pulse: 91, Resp: 18, Pain: 0, O2 sat: 94 on (Room Air), Time: 08/04/2020 19:03. VITAL SIGNS SunAug 04, 2020 20:00 DARLENE Darby Daylee BP: 170/87, Pulse: 87, Resp: 18, Temp: 97.8 (Oral), Pain: 0, O2 sat: 93 on (Room Air), Time: 08/04/2020 20:00. Today in the ER they completed a urinalysis, lab work, CT of the head, CT of the soft tissue neck with IV contrast, EKG, and portable chest x-ray. Patient recei frankie 500 mL of normal saline. Hospitalist ROS - Review of Systems ROS unobtainable: due to mental status - Medication Medications: Allergies: Haldol tablet, NSAIDS (Non-Steroidal Anti-Inflammatory Drug), Reglan Current Medications: carbamazepine SunAug 04, 2020 15:06 DARLENE aDrby Daylee capsule, ER multiphase 12 hr : Strength - 100 mg : ORAL Patient Dose: 3 times a day. donepezil SunAug 04, 2020 15:06 DARLENE Darby Daylee tablet : Strength - 5 mg : ORAL Patient Dose: once a day. Tylenol Extra Strength SunAug 04, 2020 16:12 DARLENE Simms Rachel tablet : Strength - 500 mg : ORAL Patient Dose: 2 tab(s) Oral every 6 hours PRN. levothyroxine oral SunAug 04, 2020 16:13 DARLENE Simms Rachel tablet : Strength - 88 mcg : ORAL Patient Dose: once a day (in the evening). glipiZIDE SunAug 04, 2020 16:17 DARLENE Simms Rachel TABLET : Strength - 5 mg : ORAL Patient Dose: 1 tab(s) Oral 2 times a day.2 TABS IN AM, AND 1 TAB IN PM. meTOPROLOL succinate SunAug 04, 2020 16:17 DARLENE Simms Rachel TABLET, EXTENDED RELEASE 24 HR : Strength - 100 mg : ORAL Patient Dose: 1 mg Oral once a day (in the morning). Milk of Magnesia oral suspension SunAug 04, 2020 16:17 DARLENE Simms Rachel SUSPENSION, ORAL (FINAL DOSE FORM) : Strength - 400 mg/5 mL : ORAL Patient Dose: 1 mg Oral 2 times a day (before meals). Myrbetriq SunAug 04, 2020 16:17 DARLENE Simms Rachel TABLET, EXTENDED RELEASE 24 HR : Strength - 25 mg : ORAL Patient Dose: 1 mg Oral once a day. pantoprazole oral SunAug 04, 2020 16:17 DARLENE Simms Rachel TABLET, DELAYED RELEASE (ENTERIC COATED) : Strength - 40 mg : ORAL Patient Dose: 1 mg Oral once a day. simvastatin SunAug 04, 2020 16:17 DARLENE Simms Rachel TABLET : Strength - 20 mg : ORAL Patient Dose: 1 mg Oral once a day (at bedtime). timolol maleate ophthalmic SunAug 04, 2020 16:17 DARLENE Simms Rachel DROPS : Strength - 0.5 % : OPHTHALMIC Patient Dose: 1 mg Eye Left once a day. traMADol SunAug 04, 2020 16:17 DARLENE Simms Rachel TABLET : Strength - 50 mg : ORAL Patient Dose: 1 mg Oral every 12 hours PRN. Vesicare SunAug 04, 2020 16:17 DARLENE Simms Rachel TABLET : Strength - 10 mg : ORAL Patient Dose: 1 mg Oral once a day. Xarelto SunAug 04, 2020 16:17 DARLENE Simms Rachel TABLET : Strength - 20 mg : ORAL Patient Dose: 15 mg Oral once a day. LORazepam oral SunAug 04, 2020 16:21 DARLENE Simms Rachel tablet : Strength - 0.5 mg : ORAL Patient Dose: once a day.give 0.5 mg Q day at 2:00 p.m. and may give 0.5 mg every 12 hours as needed for agitation. Hospitalist History - Past Medical History Source: half-way record Cardiac: reports: AFIB, HTN, Hyperlipidemia OPERATIONAL METEOROLOGIST: reports: Dementia Gastrointestinal: reports: GERD Endocrine: reports: Diabetes Other Medical History: glaucoma - Past Surgical History Past Surgical History: reports: Mastectomy (right) Other Surgical History: colostomy - Family History Family History: reports: no pertinent history - Social History Smoking Status: Never smoker Alcohol: reports: None Drugs: reports: none Living Situation: Long-Term - Exam General Appearance: NAD, awake alert Eye: PERRL ENT: moist mucosa Neck: supple, no lymphadenopathy Heart: no murmur, no gallops, normal peripheral pulses, irregular Respiratory: no rales, no ronchi, no tachypnea, wheezes Gastrointestinal: soft, non-tender, non-distended Gastrointestinal - other findings: colostomy Extremities: 1+ LE edema Neurological - other findings: not participatory with this exam Musculoskeletal: normal tone Psychiatric: not oriented, flat affect Hospitalist Results - Labs Result Diagrams: 08/04/20 16:03 08/04/20 16:03 Lab results: WBC 6.5 thou/uL (4.8-10.8) 08/04/20 16:03 Hgb 10.9 g/dL (12.0-16.0) L 08/04/20 16:03 Hct 35.2 % (36.0-47.0) L 08/04/20 16:03 MCV 86.2 fL (78.0-98.0) 08/04/20 16:03 Plt Count 278 thou/uL (130-400) 08/04/20 16:03 Neutrophils % 69.5 % (42.0-75.0) 08/04/20 16:03 Sodium 139 mmol/L (136-145) 08/04/20 16:03 Potassium 4.4 mmol/L (3.5-5.1) 08/04/20 16:03 Chloride 106 mmol/L (98-107) 08/04/20 16:03 Carbon Dioxide 22 mmol/L (23-31) L 08/04/20 16:03 BUN 24 mg/dL (9.8-20.1) H 08/04/20 16:03 Creatinine 1.00 mg/dL (0.6-1.1) 08/04/20 16:03 Glucose 85 mg/dL (83-110) 08/04/20 16:03 Calcium 8.7 mg/dL (7.8-10.44) 08/04/20 16:03 Total Bilirubin 0.5 mg/dL (0.2-1.2) 08/04/20 16:03 AST 20 U/L (5-34) 08/04/20 16:03 ALT 10 U/L (8-55) 08/04/20 16:03 Alkaline Phosphatase 121 U/L (40-110) H 08/04/20 16:03 CK-MB (CK-2) 2.0 ng/mL (0-6.6) 08/04/20 16:03 Troponin I 0.042 ng/mL (< 0.028) H 08/04/20 16:03 B-Natriuretic Peptide 680.5 pg/mL (0-100) H 08/04/20 16:03 Serum Total Protein 6.9 g/dL (6.0-8.3) 08/04/20 16:03 Albumin 4.0 g/dL (3.4-4.8) 08/04/20 16:03 Lipase 10 U/L (8-78) 08/04/20 16:03 Urine Ketones Negative mg/dL (Negative) 08/04/20 16:36 Urine Blood Trace (Negative) A 08/04/20 16:36 Urine Nitrite Negative (Negative) 08/04/20 16:36 Ur Leukocyte Esterase Negative Jr/uL (Negative) 08/04/20 16:36 Urine RBC 4-6 HPF (0-3) A 08/04/20 16:36 Urine WBC 0-3 HPF (0-3) 08/04/20 16:36 Ur Squamous Epith Cells 0-3 HPF (0-3) 08/04/20 16:36 Urine Bacteria Rare-Few HPF (None Seen) 08/04/20 16:36 Laboratory Tests 08/04/20 08/04/20 08/04/20 16:03 16:03 16:03 CK-MB (CK-2) 2.0 Troponin I 0.042 H B-Natriuretic Peptide 680.5 H TSH 3rd Generation 1.3231 - EKG Interpretation EKG: Atrial fibrillation, right bundle branch block 87 bpm - Radiology Interpretation Other Status: report reviewed by me Additional Comment: CT SOFT TISSUE NECK WITH IV CONTRAST: 08/04/20 PROVIDED CLINICAL HISTORY: Pain. FINDINGS: No comparisons. The parotid and submandibular glands appear unremarkable. There is no evidence for regional lymph nod e enlargement. The oropharynx, oral cavity and hypopharynx appear unremarkable. The epiglottis and ar yepiglottic folds appear normal. There is no prevertebral soft tissue swelling apparent. The trachea and visualized airway appear patent and of normal caliber. The visualized lung apices appear clear. Vascular calcification is noted including coronary calcium. There is no evidence for high grade calci fied stenosis involving the great vessels of the neck. There is reflux of contrast material demonstra melba in the left upper extremity to the external jugular and internal jugular veins on the left. This may reflect some degree of obstruction of the left brachiocephalic vein. This could be on the basis o f indwelling cardiac pacing device. The osseous structures demonstrate no concerning lytic or blastic lesions. Advanced multilevel cervic al degenerative changes are seen. IMPRESSION: No evidence for an acute process. Chronic findings as above. Chest x-ray Status: image reviewed by me, report reviewed by me Additional Comment: PORTABLE CHEST ONE VIEW: 08/04/20 at 3:27 p.m. HISTORY: Altered mental status. Slurred speech. COMPARISON: 10/29/19. FINDINGS: The heart is enlarged. Left sided pacemaker device remains in place. No lobar consolidation, pneumoth oraces, carmen pulmonary edema or pleural effusions are seen. IMPRESSION: Stable exam. No acute process. CT scan - head Status: report reviewed by me Additional Comment: Impression: 1. No CT evidence of acute intracranial process. 2. Soft tissue air in the right research attorney space. Further evaluation with a contrast enhanced CT scan of the neck is recommended. Hospitalist H&P A/P - Problem (1) TIA (transient ischemic attack) Code(s): G45.9 - TRANSIENT CEREBRAL ISCHEMIC ATTACK, UNSPECIFIED Status: Acute (2) Elevated troponin Code(s): R79.89 - OTHER SPECIFIED ABNORMAL FINDINGS OF BLOOD CHEMISTRY Status: Acute (3) CHF exacerbation Code(s): I50.9 - HEART FAILURE, UNSPECIFIED Status: Acute (4) CKD (chronic kidney disease) stage 3, GFR 30-59 ml/min Code(s): N18.3 - CHRONIC KIDNEY DISEASE, STAGE 3 (MODERATE) Status: Chronic (5) Chronic a-fib Code(s): I48.2 - CHRONIC ATRIAL FIBRILLATION * DO NOT USE * Status: Chronic (6) Dementia Code(s): F03.90 - UNSPECIFIED DEMENTIA WITHOUT BEHAVIORAL DISTURBANCE Status: Chronic (7) Diabetes type 2, controlled Code(s): E11.9 - TYPE 2 DIABETES MELLITUS WITHOUT COMPLICATIONS Status: Chronic - Plan Plan: Altered mental status with baseline dementia rule out TIA Unable to do MRI of the brain is pacemaker is not compatible with machine Neurology consult and lab work including FLP in a.m. Neurochecks 4 hours with NIH every shift Dysphagia screen prior to eating Echo in a.m., history of atrial fibrillation Patient with allergy to NSAIDs, will hold aspirin at this time is unknown what the allergy is and patient is currently on Xarelto for anticoagulation Elevated troponin Continue to trend troponins Troponin from a year ago was 0.033 and today's was 0.042 No chest pain or shortness of breath noted today Monitor on telemetry CHF exacerbation Echo on 08/02/2019 showed EF of 60 to 65% We will repeat echo in a.m. Strict I's and O's One-time dose of Lasix at this time Chronic kidney disease Previous GFR in 2019 was 31, today's is 52 Monitor labs in a.m. Diabetes type 2 Monitor Accu-Cheks AC at bedtime Mild sliding scale insulin Patient currently on Xarelto for anticoagulation and Protonix for GI prophylaxis Patient unable to identify surrogate decision-maker, will check with the half-way and half-way records
[2020-08-04 21:41] LABS: Troponin I 0.034 ng/mL (< 0.028)
[2020-08-04] MEDS ORDERED: Furosemide 20 MG/2 ML VIAL SLOW IVP SCH (21:45)
[2020-08-04 23:52] VITALS: BMI 33.4
[2020-08-05] MEDS ORDERED: Lorazepam 2 MG/ML VIAL SLOW IVP SCH (02:00)
[2020-08-05] MEDS ORDERED: OLANZapine 10 MG VIAL IM SCH (03:15)
[2020-08-05 05:26] LABS: #Eosinphils 0.4 thou/uL (0.0-0.7); #Lymphocytes 0.8 thou/uL (1.20-3.40); #Monocytes 0.7 thou/uL (0.11-0.59); #Neutrophils 4.8 thou/uL (1.40-6.50); %Basophils 0.6 % (0.0-1.0); %Eosinophils 5.4 % (0.0-10.0); %Lymphocytes 12.2 % (21.0-51.0); %Neutrophils 71.8 % (42.0-75.0); Hemoglobin 11.5 g/dL (12.0-16.0); Mean Corpuscular HGB CONC 30.9 g/dL (32.0-36.0); Mean Corpuscular Hemoglobin 26.6 pg (27.0-31.0); Mean Corpuscular Volume 86.1 fL (78.0-98.0); Mean Platelet Volume 7.3 fL (7.4-10.4); Platelet Count 265 thou/uL (130-400); RBC Distribution Width 17.4 % (11.5-14.5); Red Blood Cell (RBC) Count 4.34 mill/uL (4.20-5.40); White Blood Cell (WBC) Count 6.7 thou/uL (4.8-10.8)
[2020-08-05 05:50] LABS: Anion Gap 16 mmol/L (10-20); BUN (Urea Nitrogen) 18 mg/dL (9.8-20.1); Calc. Creatinine Clearance 57 mL/min (70-130); Calcium 9.2 mg/dL (7.8-10.44); Carbon Dioxide 20 mmol/L (23-31); Cardiac Risk 3.4 (Less than 4.5); Chloride 104 mmol/L (98-107); Cholesterol 146 mg/dl (< 200 Desired); Estimated GFR-MDRD 59; Glucose 134 mg/dL (83-110); HDL Cholesterol 43 mg/dL (>60 Neg Risk); LDL Cholesterol, Calculated 78 mg/dL; Sodium 136 mmol/L (136-145); Triglycerides 123 mg/dL (Less than 150)
--- NOTE | 2020-08-05 10:29 | PDOC.HOSPP ---
- Subjective Encounter Date: 08/05/20 Encounter Time: 10:27 Subjective: awake, no appropriate responce - Objective Vital Signs & Weight: Vital Signs (12 hours) Temp Pulse Resp BP Pulse Ox 08/05/20 07:27 97.8 F 90 18 172/71 H 95 Weight Admit Weight 182 lb 12.8 oz Weight 182 lb 12.8 oz Result Diagrams: 08/05/20 05:17 08/05/20 05:17 Hospitalist ROS - Medication Medications: Active Medications Generic Name Dose Route Start Last Admin Trade Name Freq PRN Reason Stop Dose Admin Sodium Chloride 10 ml 08/04/20 19:27 08/04/20 23:45 Flush - Normal Saline 10 Ml Syringe IVF 10 ml PRN PRN Administration Saline Flush - Exam Neck: no JVD Heart: irregular, II/IV Respiratory: CTAB Gastrointestinal: soft, normal bowel sounds Extremities: 1+ LE edema Neurological: cranial nerve grossly intact, no focal deficits Hosp A/P (1) Elevated troponin Code(s): R79.89 - OTHER SPECIFIED ABNORMAL FINDINGS OF BLOOD CHEMISTRY Status: Chronic (2) TIA (transient ischemic attack) Code(s): G45.9 - TRANSIENT CEREBRAL ISCHEMIC ATTACK, UNSPECIFIED Status: Acute (3) CKD (chronic kidney disease) stage 3, GFR 30-59 ml/min Code(s): N18.3 - CHRONIC KIDNEY DISEASE, STAGE 3 (MODERATE) Status: Chronic (4) Chronic a-fib Code(s): I48.2 - CHRONIC ATRIAL FIBRILLATION * DO NOT USE * Status: Chronic (5) HLD (hyperlipidemia) Code(s): E78.5 - HYPERLIPIDEMIA, UNSPECIFIED Status: Chronic (6) Hypertension Code(s): I10 - ESSENTIAL (PRIMARY) HYPERTENSION Status: Chronic (7) Hypothyroidism Code(s): E03.9 - HYPOTHYROIDISM, UNSPECIFIED Status: Chronic (8) Anticoagulant long-term use Code(s): Z79.01 - [facility] (CURRENT) USE OF ANTICOAGULANTS Status: Acute - Plan MRI, ECHO cont anticoag, asa troponin chronically elevated at current level no evidence for chf
[2020-08-05 12:09] LABS: SARS-CoV-2 MS2 Positive; SARS-CoV-2 N Gene Negative; SARS-CoV-2 S Gene Negative; SARS-CoV-2 by NAA Not Detected (NotDetected); SARS-CoV-2 orf1ab Negative
--- NOTE | 2020-08-05 12:58 | CON ---
NEUROLOGY CONSULTATION DATE OF CONSULTATION: 08/05/2020 REASON FOR CONSULTATION: Altered mental status, rule out stroke. HISTORY OF PRESENT ILLNESS: Ms. Lana Harry is an 89-year-old female with history significant for advanced dementia, atrial fibrillation on Xarelto, hyperlipidemia, brought from a [place] [facility] by the EMS for an episode of slurred speech. The patient is unable to provide the history, so history is obtained by review of the medical records. Per records, the patient was normally alert and oriented x1, but then she seems to be more confused according to [facility] documentation and she has been confused and combative and was not aware of her surroundings. The staff also noted she had slurred speech. We decided to bring her to the emergency room for further evaluation. There is no documented history of sick contacts or recent exposure to COVID or nausea, vomiting, headache, chest pain, abdominal pain, or focal weakness noted by the [place] [facility] staff. She was admitted a year ago with similar complaints of altered mental status which resolved in a day and she was able to return to the [place] [facility]. In the emergency room, urinalysis, lab work, and CT of the head was done, which was negative for acute intracranial pathology. REVIEW OF SYSTEMS: Unobtainable due to the patient's mental status. ALLERGIES: NSAIDS, HALDOL. HOME MEDICATIONS: 1. Carbamazepine. 2. Donepezil. 3. Tylenol. 4. Levothyroxine. 5. Glipizide. 6. Metoprolol. 7. Milk of magnesia. 8. Myrbetriq. 9. Pantoprazole. 10. Simvastatin. 11. Timolol. 12. Tramadol. 13. VESIcare. 14. Xarelto. 15. Lorazepam. PAST MEDICAL HISTORY: Atrial fibrillation, hypertension, hyperlipidemia, dementia, GERD, diabetes, glaucoma. PAST SURGICAL HISTORY: Right mastectomy, colostomy. FAMILY HISTORY: No significant family history. SOCIAL HISTORY: intermediate resident. There is no documented history of smoking, alcohol, illegal drug use. awake, no appropriate responce - Objective Vital Signs & Weight: Vital Signs (12 hours) Temp Pulse Resp BP Pulse Ox 08/05/20 07:27 97.8 F 90 18 172/71 H 95 Weight Admit Weight 182 lb 12.8 oz Weight 182 lb 12.8 oz PHYSICAL EXAMINATION: CVS: Regular rate and rhythm. CHEST: Clear. ABDOMEN: Soft. NECK: Supple. NEUROLOGIC: Mental status; the patient is extremely confused. She is not oriented to person, place, or time. Speech is clear. She does not follow commands. Cranial nerves; pupils 4 mm, round and reactive to light. Face symmetric. Tongue midline. Moves neck in both direction. Hearing seems to be intact. Motor; muscle tone and bulk are normal. Moving all 4 extremities equally and symmetrically. Cerebellar; did not cooperate with testing. Sensory, withdraws to nailbed pressure bilaterally. Gait deferred due to patient's safety reason. DATA REVIEWED: I reviewed the labs which show significant anemia with hemoglobin of 10.9, hematocrit of 35.2. EKG showed atrial fibrillation with right bundle- branch block, and CT of the head and neck was unremarkable. CT of the chest did show that she has a pacemaker and stable exam with no acute intracranial process. Lab results: WBC 6.5 thou/uL (4.8-10.8) 08/04/20 16:03 Hgb 10.9 g/dL (12.0-16.0) L 08/04/20 16:03 Hct 35.2 % (36.0-47.0) L 08/04/20 16:03 MCV 86.2 fL (78.0-98.0) 08/04/20 16:03 Plt Count 278 thou/uL (130-400) 08/04/20 16:03 Neutrophils % 69.5 % (42.0-75.0) 08/04/20 16:03 Sodium 139 mmol/L (136-145) 08/04/20 16:03 Potassium 4.4 mmol/L (3.5-5.1) 08/04/20 16:03 Chloride 106 mmol/L (98-107) 08/04/20 16:03 Carbon Dioxide 22 mmol/L (23-31) L 08/04/20 16:03 BUN 24 mg/dL (9.8-20.1) H 08/04/20 16:03 Creatinine 1.00 mg/dL (0.6-1.1) 08/04/20 16:03 Glucose 85 mg/dL (83-110) 08/04/20 16:03 Calcium 8.7 mg/dL (7.8-10.44) 08/04/20 16:03 Total Bilirubin 0.5 mg/dL (0.2-1.2) 08/04/20 16:03 AST 20 U/L (5-34) 08/04/20 16:03 ALT 10 U/L (8-55) 08/04/20 16:03 Alkaline Phosphatase 121 U/L (40-110) H 08/04/20 16:03 CK-MB (CK-2) 2.0 ng/mL (0-6.6) 08/04/20 16:03 Troponin I 0.042 ng/mL (< 0.028) H 08/04/20 16:03 B-Natriuretic Peptide 680.5 pg/mL (0-100) H 08/04/20 16:03 Serum Total Protein 6.9 g/dL (6.0-8.3) 08/04/20 16:03 Albumin 4.0 g/dL (3.4-4.8) 08/04/20 16:03 Lipase 10 U/L (8-78) 08/04/20 16:03 Urine Ketones Negative mg/dL (Negative) 08/04/20 16:36 Urine Blood Trace (Negative) A 08/04/20 16:36 Urine Nitrite Negative (Negative) 08/04/20 16:36 Ur Leukocyte Esterase Negative Jr/uL (Negative) 08/04/20 16:36 Urine RBC 4-6 HPF (0-3) A 08/04/20 16:36 Urine WBC 0-3 HPF (0-3) 08/04/20 16:36 Ur Squamous Epith Cells 0-3 HPF (0-3) 08/04/20 16:36 Urine Bacteria Rare-Few HPF (None Seen) 08/04/20 16:36 Laboratory Tests 08/04/20 08/04/20 08/04/20 16:03 16:03 16:03 CK-MB (CK-2) 2.0 Troponin I 0.042 H B-Natriuretic Peptide 680.5 H TSH 3rd Generation 1.3231 - EKG Interpretation EKG: Atrial fibrillation, right bundle branch block 87 bpm - Radiology Interpretation Other Status: report reviewed by me Additional Comment: CT SOFT TISSUE NECK WITH IV CONTRAST: 08/04/20 PROVIDED CLINICAL HISTORY: Pain. FINDINGS: No comparisons. The parotid and submandibular glands appear unremarkable. There is no evidence for regional lymph nod e enlargement. The oropharynx, oral cavity and hypopharynx appear unremarkable. The epiglottis and ar yepiglottic folds appear normal. There is no prevertebral soft tissue swelling apparent. The trachea and visualized airway appear patent and of normal caliber. The visualized lung apices appear clear. Vascular calcification is noted including coronary calcium. There is no evidence for high grade calci fied stenosis involving the great vessels of the neck. There is reflux of contrast material demonstra melba in the left upper extremity to the external jugular and internal jugular veins on the left. This may reflect some degree of obstruction of the left brachiocephalic vein. This could be on the basis o f indwelling cardiac pacing device. The osseous structures demonstrate no concerning lytic or blastic lesions. Advanced multilevel cervic al degenerative changes are seen. IMPRESSION: No evidence for an acute process. Chronic findings as above. Chest x-ray Status: image reviewed by me, report reviewed by me Additional Comment: PORTABLE CHEST ONE VIEW: 08/04/20 at 3:27 p.m. HISTORY: Altered mental status. Slurred speech. COMPARISON: 10/29/19. FINDINGS: The heart is enlarged. Left sided pacemaker device remains in place. No lobar consolidation, pneumoth oraces, carmen pulmonary edema or pleural effusions are seen. IMPRESSION: Stable exam. No acute process. CT scan - head Status: report reviewed by me Additional Comment: Impression: 1. No CT evidence of acute intracranial process. 2. Soft tissue air in the right powder core tester space. Further evaluation with a contrast enhanced CT scan of the neck is recommended. ASSESSMENT AND PLAN: (1) TIA (transient ischemic attack) Code(s): G45.9 - TRANSIENT CEREBRAL ISCHEMIC ATTACK, UNSPECIFIED Status: Acute (2) Elevated troponin Code(s): R79.89 - OTHER SPECIFIED ABNORMAL FINDINGS OF BLOOD CHEMISTRY Status: Acute (3) CHF exacerbation Code(s): I50.9 - HEART FAILURE, UNSPECIFIED Status: Acute (4) CKD (chronic kidney disease) stage 3, GFR 30-59 ml/min Code(s): N18.3 - CHRONIC KIDNEY DISEASE, STAGE 3 (MODERATE) Status: Chronic (5) Chronic a-fib Code(s): I48.2 - CHRONIC ATRIAL FIBRILLATION * DO NOT USE * Status: Chronic (6) Dementia Code(s): F03.90 - UNSPECIFIED DEMENTIA WITHOUT BEHAVIORAL DISTURBANCE Status: Chronic (7) Diabetes type 2, controlled Code(s): E11.9 - TYPE 2 DIABETES MELLITUS WITHOUT COMPLICATIONS Status: Chronic Ms. Lana Harry is an 89-year-old female with history significant for dementia, presented with worsening altered mental status and slurred speech. We were unable to perform MRI of the brain since pacemaker is not compatible. Consider repeating head CT to rule out acute intracranial process. Neuro checks every 4 hours. N.p.o. until cleared by Speech. Continue home medications. Continue aspirin and high-intensity statin for secondary stroke prevention. Continue Xarelto for atrial fibrillation. 2D echocardiogram pending Permissive control of blood pressure at this time. Strict control of blood glucose. PT/OT/Speech. Continue medical management per primary team. Check hemoglobin A1c, fasting lipid panel, and TSH. We will continue to hold aspirin at this time because of allergy. The patient is already on Xarelto for anticoagulation. EEG completed for worsening mental status, which was negative for seizure activity. We will continue to follow. Thank you for the consult. Job ID: [id number] [facility] CENTERJaskaran
[2020-08-05] MEDS: Rivaroxaban 15 MG TAB PO SCH (16:26)
--- NOTE | 2020-08-05 16:44 | PDOC.EVN ---
Event Note - Event Note Event Note: unable to have MRI. ordered CT brain with contrast for AM
[2020-08-05] MEDS ORDERED: Acetaminophen 500 MG TAB PO PRN (16:49)
--- NOTE | 2020-08-05 16:53 | PDOC.EVN ---
Event Note - Event Note Event Note: fussing and fighting wiyh nurses like typical alzheimer patient. doubt this represents TIA or stroke
[2020-08-05] MEDS: Lorazepam 0.5 MG TAB PO PRN (17:00)
[2020-08-05] MEDS: traMADol HCl 50 MG TAB PO PRN (17:22)
[2020-08-05] MEDS ORDERED: traMADol HCl 50 MG TAB PO SCH (21:00)
[2020-08-05] MEDS: Atorvastatin Calcium 20 MG TAB PO SCH (21:53)
[2020-08-05] MEDS: carBAMazepine 100 mg Chewable Tablet PO SCH (21:53)
[2020-08-05] MEDS: Trospium 20 MG TAB PO SCH (21:53)
--- NOTE | 2020-08-06 03:27 | PDOC.HOSPP ---
- Subjective Encounter Date: 08/06/20 Encounter Time: 08:00 Subjective: no overnight events. this morning, drowsy but easily arousable and follows commands Has no complaints - Objective Vital Signs & Weight: Vital Signs (12 hours) Temp Pulse Resp BP Pulse Ox 08/05/20 23:40 134/69 08/05/20 20:00 98.2 F 81 16 154/100 H 96 Weight Admit Weight 182 lb 12.8 oz Weight 182 lb 12.8 oz Result Diagrams: 08/06/20 04:38 08/06/20 04:38 Additional Labs: Accuchecks 08/05/20 08/05/20 08/05/20 20:33 16:54 11:05 POC Glucose 136 H 136 H 131 H Hospitalist ROS - Review of Systems Constitutional: denies: chills, sweats Respiratory: denies: cough, dry, shortness of breath Cardiovascular: denies: chest pain, palpitations, orthopnea Gastrointestinal: denies: nausea, vomiting, abdominal pain - Medication Medications: Active Medications Generic Name Dose Route Start Last Admin Trade Name Freq PRN Reason Stop Dose Admin Atorvastatin Calcium 20 mg 08/05/20 21:00 08/05/20 21:53 Atorvastatin Calcium 20 Mg Tab PO 20 mg HS ADAM Administration Carbamazepine 100 mg 08/05/20 21:00 08/05/20 21:53 Carbamazepine 100 Mg Chewable Tablet PO 100 mg TID ADAM Administration Glipizide 2.5 mg 08/05/20 21:00 08/05/20 22:15 Glipizide Xl 2.5 Mg Tablet PO Not Given HS ADAM Lorazepam 0.5 mg 08/05/20 16:49 08/05/20 17:00 Lorazepam 0.5 Mg Tab PO 0.5 mg Q12H PRN Administration Anxiety Rivaroxaban 15 mg 08/05/20 17:00 08/05/20 16:26 Rivaroxaban 15 Mg Tab PO 15 mg QPM-WM ADAM Administration Sodium Chloride 10 ml 08/04/20 19:27 08/04/20 23:45 Flush - Normal Saline 10 Ml Syringe IVF 10 ml PRN PRN Administration Saline Flush Tramadol HCl 50 mg 08/05/20 17:15 08/05/20 17:22 Tramadol Hcl 50 Mg Tab PO 50 mg BIDPRN PRN Administration Pain 4-6 Trospium 20 mg 08/05/20 21:00 08/05/20 21:53 Trospium 20 Mg Tab PO 20 mg BID ADAM Administration - Exam General Appearance: NAD General - other findings: drowsy Eye - other findings: 2mm b/l equal. minimally reactive Neck: no JVD Heart: irregular, murmur present, II/IV Heart - other findings: afib on telemetry Respiratory: CTAB, no wheezes, no rales, no ronchi Gastrointestinal: soft, non-tender, non-distended, normal bowel sounds Extremities: 1+ LE edema Psychiatric: oriented to person, oriented to place. negative: oriented to time (won't answer time question) Hosp A/P - Plan #Dementia #B12 deficiency -B12 may contribute to neuropsychaitric disorder/dementia -B12;workup #TIA abcd2 < 4 based on limited HPI; cotinue aspirin 81mg PO daily #HFpEF H2FPEF score 7-8/9; high likelihood of HFpEF Echo c/w pulmonary HTN but not PA pressures -control blood pressure -monitor for tolerance of afib #chronic atrial fibrillation well controlled- continue rivaroxaban, metoprolol
[2020-08-06] MEDS ORDERED: Lorazepam 2 MG/ML VIAL ONE (03:53)
[2020-08-06] MEDS ORDERED: Lorazepam 2 MG/ML VIAL SLOW IVP SCH (04:00)
[2020-08-06 04:49] LABS: Reticulocyte Count 2.3 % (0.5-1.5)
[2020-08-06 05:08] LABS: Anion Gap 17 mmol/L (10-20); BUN (Urea Nitrogen) 24 mg/dL (9.8-20.1); Calc. Creatinine Clearance 44 mL/min (70-130); Calcium 9.1 mg/dL (7.8-10.44); Carbon Dioxide 23 mmol/L (23-31); Chloride 104 mmol/L (98-107); Estimated GFR-MDRD 45; Glucose 154 mg/dL (83-110); Potassium 3.9 mmol/L (3.5-5.1); Sodium 140 mmol/L (136-145)
[2020-08-06 05:10] LABS: Eosinophils 9 % (0-10); Hemoglobin 11.7 g/dL (12.0-16.0); Lymphocytes 18 % (21-51); MDiff Complete? YES; Mean Corpuscular HGB CONC 30.8 g/dL (32.0-36.0); Mean Corpuscular Hemoglobin 26.9 pg (27.0-31.0); Mean Corpuscular Volume 87.4 fL (78.0-98.0); Mean Platelet Volume 7.4 fL (7.4-10.4); Monocytes 9 % (0-10); Neutrophil 64 % (42-75); Platelet Count 273 thou/uL (130-400); Platelet Morphology Comment Appears Adequate; RBC Distribution Width 17.3 % (11.5-14.5); Red Blood Cell (RBC) Count 4.34 mill/uL (4.20-5.40); White Blood Cell (WBC) Count 5.2 thou/uL (4.8-10.8)
[2020-08-06] MEDS: Levothyroxine Sodium 88 MCG TAB PO SCH (06:31)
--- NOTE | 2020-08-06 08:24 | CT ---
CT BRAIN WITHOUT CONTRAST: HISTORY:Altered mental status and combative. COMPARISON:08/04/2020 FINDINGS: There are foci of decreased attenuation in the periventricular white matter, consistent with chronic small vessel ischemic disease. 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 No evidence of acute infarct, hemorrhage, midline shift or abnormal extra-axial fluid collections is seen. The ventricular size is stable and the basilar cisterns are patent. The bony calvarium is intact. The visualized paranasal sinuses and mastoid air cells are well aerated. The previously noted soft ti ssue air in the right emergency department aide space is no longer seen. IMPRESSION: No CT evidence of acute intracranial process.
[2020-08-06] MEDS ORDERED: Cyanocobalamin (Vitamin B-12) 1,000 MCG TAB PO SCH (09:00)
[2020-08-06] MEDS ORDERED: Aspirin 325 MG TAB PO SCH (09:00)
--- NOTE | 2020-08-06 09:46 | EEG ---
DATE OF SERVICE: 08/05/2020 ATTENDING PHYSICIAN: Ava Manuel MD. This EEG was performed using 24-channel [employer] video digital EEG machine with 24-disk electrodes. This was an extended 2 hours 6 minutes of inpatient video EEG recording. Digital analysis of the EEG was done for spike and seizure detection, which revealed no abnormalities. BACKGROUND: The posterior background rhythm was not observed. HYPERVENTILATION: Not performed. PHOTIC STIMULATION: Not performed. SLEEP: Drowsiness and sleep are observed. ELECTROENCEPHALOGRAM DIAGNOSES: 1. Generalized irregular theta activity seen during the recording. 2. Absence of posterior background rhythm. CLINICAL INTERPRETATION: This EEG is consistent with moderate generalized nonspecific cerebral dysfunction. Job ID: [id number]
[2020-08-06] MEDS: Aspirin 81 mg Enteric Coated Tablet PO SCH (10:11)
[2020-08-06] MEDS: Donepezil HCl 5 MG TAB PO SCH (10:12)
[2020-08-06] MEDS: Trospium 20 MG TAB PO SCH ×2 (10:13→21:44)
[2020-08-06] MEDS: Metoprolol Tartrate 100 MG TAB PO SCH (10:13)
[2020-08-06] MEDS: carBAMazepine 100 mg Chewable Tablet PO SCH ×3 (10:23→21:43)
[2020-08-06] MEDS: Cyanocobalamin 1000 MCG/ML VIAL IM SCH (10:23)
[2020-08-06] MEDS: Timolol 0.5% Ophth Soln 5 ml Bottle L EYE SCH (12:32)
--- NOTE | 2020-08-06 12:44 | PDOC.NEUPN ---
- Subjective Encounter Date: 08/06/20 Subjective: Patient somnolent but open eyes on verbal stimuli. No complaints reported overnight. - Objective Vital Signs & Weight: Vital Signs (12 hours) Temp Pulse Resp BP BP Pulse Ox 08/06/20 12:32 79 120/73 08/06/20 11:35 98 F 79 18 120/73 96 08/06/20 08:00 98 08/06/20 07:07 97.6 F 89 20 131/67 98 08/06/20 03:56 97.5 F L 103 H 16 168/89 H 93 L Weight Admit Weight 182 lb 12.8 oz Weight 182 lb 12.8 oz I&O: 08/05/20 08/06/20 08/07/20 06:59 06:59 06:59 Intake Total 240 Balance 240 Result Diagrams: 08/06/20 04:38 08/06/20 04:38 Additional Labs: Accuchecks 08/06/20 08/06/20 08/05/20 10:55 06:14 20:33 POC Glucose 162 H 158 H 136 H 08/05/20 16:54 POC Glucose 136 H Radiology Reviewed by me: Yes EKG Reviewed by me: Yes ROS - Review of Systems ROS unobtainable: due to mental status - Medication Medications: Active Medications Generic Name Dose Route Start Last Admin Trade Name Barry PRN Reason Stop Dose Admin Aspirin 81 mg 08/06/20 09:00 08/06/20 10:11 Aspirin 81 Mg Enteric Coated Tablet PO 81 mg DAILY ADAM Administration Atorvastatin Calcium 20 mg 08/05/20 21:00 08/05/20 21:53 Atorvastatin Calcium 20 Mg Tab PO 20 mg HS ADAM Administration Carbamazepine 100 mg 08/05/20 21:00 08/06/20 10:23 Carbamazepine 100 Mg Chewable Tablet PO 100 mg TID ADAM Administration Cyanocobalamin 1,000 mcg 08/06/20 09:00 08/06/20 10:23 Cyanocobalamin 1000 Mcg/Ml Vial IM 1,000 mcg Q2D ADAM Administration Donepezil HCl 5 mg 08/06/20 09:00 08/06/20 10:12 Donepezil Hcl 5 Mg Tab PO 5 mg DAILY ADAM Administration Glipizide 5 mg 08/06/20 09:00 08/06/20 10:12 Glipizide Xl 2.5 Mg Tablet PO 5 mg DAILY ADAM Administration Glipizide 2.5 mg 08/05/20 21:00 08/05/20 22:15 Glipizide Xl 2.5 Mg Tablet PO Not Given HS ADAM Levothyroxine Sodium 88 mcg 08/06/20 06:00 08/06/20 06:31 Levothyroxine Sodium 88 Mcg Tab PO Not Given 0600 ADAM Lorazepam 0.5 mg 08/05/20 16:49 08/05/20 17:00 Lorazepam 0.5 Mg Tab PO 0.5 mg Q12H PRN Administration Anxiety Metoprolol Tartrate 100 mg 08/06/20 09:00 08/06/20 10:13 Metoprolol Tartrate 100 Mg Tab PO 100 mg DAILY ADAM Administration Mirabegron 25 mg 08/06/20 09:00 08/06/20 10:12 Mirabegron Er 25 Mg Tab PO 25 mg DAILY ADAM Administration Pantoprazole Sodium 40 mg 08/06/20 09:00 08/06/20 10:13 Pantoprazole 40 Mg Tab PO 40 mg DAILY ADAM Administration Rivaroxaban 15 mg 08/05/20 17:00 08/05/20 16:26 Rivaroxaban 15 Mg Tab PO 15 mg QPM-WM ADAM Administration Sodium Chloride 10 ml 08/04/20 19:27 08/04/20 23:45 Flush - Normal Saline 10 Ml Syringe IVF 10 ml PRN PRN Administration Saline Flush Timolol Maleate 1 drop 08/06/20 09:00 08/06/20 12:32 Timolol 0.5% Ophth Soln 5 Ml Bottle L EYE 1 drp DAILY ADAM Administration Tramadol HCl 50 mg 08/05/20 17:15 08/05/20 17:22 Tramadol Hcl 50 Mg Tab PO 50 mg BIDPRN PRN Administration Pain 4-6 Trospium 20 mg 08/05/20 21:00 08/06/20 10:13 Trospium 20 Mg Tab PO 20 mg BID ADAM Administration - Exam General Appearance: NAD Eye: PERRL ENT: normocephalic atraumatic Neck: supple Respiratory: CTAB Cardiovascular: RRR Gastrointestinal: soft Extremities: no cyanosis Skin: normal turgor Neurological: no new deficit Musculoskeletal: normal tone, normal strength PSYCH: oriented to person, somnolent Results - Labs Result Diagrams: 08/06/20 04:38 08/06/20 04:38 Lab results: WBC 5.2 thou/uL (4.8-10.8) 08/06/20 04:38 Hgb 11.7 g/dL (12.0-16.0) L 08/06/20 04:38 Hct 37.9 % (36.0-47.0) 08/06/20 04:38 MCV 87.4 fL (78.0-98.0) 08/06/20 04:38 Plt Count 273 thou/uL (130-400) 08/06/20 04:38 Neutrophils % 71.8 % (42.0-75.0) 08/05/20 05:17 Sodium 140 mmol/L (136-145) 08/06/20 04:38 Potassium 3.9 mmol/L (3.5-5.1) 08/06/20 04:38 Chloride 104 mmol/L (98-107) 08/06/20 04:38 Carbon Dioxide 23 mmol/L (23-31) 08/06/20 04:38 BUN 24 mg/dL (9.8-20.1) H 08/06/20 04:38 Creatinine 1.15 mg/dL (0.6-1.1) H 08/06/20 04:38 Glucose 154 mg/dL (83-110) H 08/06/20 04:38 Calcium 9.1 mg/dL (7.8-10.44) 08/06/20 04:38 Total Bilirubin 0.5 mg/dL (0.2-1.2) 08/04/20 16:03 AST 20 U/L (5-34) 08/04/20 16:03 ALT 10 U/L (8-55) 08/04/20 16:03 Alkaline Phosphatase 121 U/L (40-110) H 08/04/20 16:03 CK-MB (CK-2) 2.0 ng/mL (0-6.6) 08/04/20 16:03 Troponin I 0.040 ng/mL (< 0.028) H 08/04/20 22:57 B-Natriuretic Peptide 680.5 pg/mL (0-100) H 08/04/20 16:03 Serum Total Protein 6.9 g/dL (6.0-8.3) 08/04/20 16:03 Albumin 4.0 g/dL (3.4-4.8) 08/04/20 16:03 Lipase 10 U/L (8-78) 08/04/20 16:03 Urine Ketones Negative mg/dL (Negative) 08/04/20 16:36 Urine Blood Trace (Negative) A 08/04/20 16:36 Urine Nitrite Negative (Negative) 08/04/20 16:36 Ur Leukocyte Esterase Negative Jr/uL (Negative) 08/04/20 16:36 Urine RBC 4-6 HPF (0-3) A 08/04/20 16:36 Urine WBC 0-3 HPF (0-3) 08/04/20 16:36 Ur Squamous Epith Cells 0-3 HPF (0-3) 08/04/20 16:36 Urine Bacteria Rare-Few HPF (None Seen) 08/04/20 16:36 - Radiology Interpretation CT scan - head Status: image reviewed by me, report reviewed by me Additional Comment: Negative for acute intracranial process. PN A/P (1) TIA (transient ischemic attack) Code(s): G45.9 - TRANSIENT CEREBRAL ISCHEMIC ATTACK, UNSPECIFIED Status: Acute (2) POLI (acute kidney injury) Code(s): N17.9 - ACUTE KIDNEY FAILURE, UNSPECIFIED Status: Acute (3) Atrial fibrillation with RVR Code(s): I48.91 - UNSPECIFIED ATRIAL FIBRILLATION Status: Acute (4) CKD (chronic kidney disease) stage 3, GFR 30-59 ml/min Code(s): N18.3 - CHRONIC KIDNEY DISEASE, STAGE 3 (MODERATE) Status: Chronic (5) Dementia Code(s): F03.90 - UNSPECIFIED DEMENTIA WITHOUT BEHAVIORAL DISTURBANCE Status: Chronic (6) Diabetes type 2, controlled Code(s): E11.9 - TYPE 2 DIABETES MELLITUS WITHOUT COMPLICATIONS Status: Chronic (7) Dyslipidemia Code(s): E78.5 - HYPERLIPIDEMIA, UNSPECIFIED Status: Chronic (8) Frequent falls Code(s): R29.6 - REPEATED FALLS Status: Chronic (9) Glaucoma Code(s): H40.9 - UNSPECIFIED GLAUCOMA Status: Chronic (10) Parkinson disease Code(s): G20 - PARKINSON'S DISEASE Status: Chronic - Plan Daily Plan: PT/OT, speech therapy, DVT proph w/SCDs 89-year-old female with a history significant for dementia, chronic atrial fibrillation, diabetes, chronic kidney disease, Parkinson disease, hypertension and hyperlipidemia presented with worsening altered mental status and an episode of slurred speech with her which is which is now resolved. The patient cannot have MRIs because of the pacemaker which is incompatible with the device. However, the repeat head CT did not show any acute intracranial pathology. Most likely TIA because of coexisting med medical comorbidities. Continue Xarelto for atrial fibrillation and secondary stroke prevention. Neurochecks every 4 hours. EEG reviewed and was negative for seizure activity. Continue high intensity statin for secondary stroke prevention. Strict control of blood pressure and blood glucose. Continue home medications. 2D echo showed ejection fraction 60 to 65%. No thrombus or PFO. Continue medical management per primary team. PT/OT/speech. Case management on board regarding discharge planning. Case discussed in detail during the MDR rounds.
[2020-08-06] MEDS ORDERED: Lorazepam 0.5 MG TAB PO SCH (14:00)
[2020-08-06] MEDS: traMADol HCl 50 MG TAB PO PRN (14:40)
[2020-08-06] MEDS: Lorazepam 0.5 MG TAB PO PRN (14:42)
[2020-08-06] MEDS ORDERED: Ondansetron ODT 4 MG TAB PO PRN (15:14)
[2020-08-06] MEDS ORDERED: traZODone HCl 50 MG TAB PO SCH (15:15)
[2020-08-06] MEDS: Rivaroxaban 15 MG TAB PO SCH (15:34)
[2020-08-06] MEDS: Atorvastatin Calcium 20 MG TAB PO SCH (21:44)
[2020-08-07 04:43] LABS: #Eosinphils 0.4 thou/uL (0.0-0.7); #Lymphocytes 0.9 thou/uL (1.20-3.40); #Monocytes 0.9 thou/uL (0.11-0.59); #Neutrophils 4.8 thou/uL (1.40-6.50); %Basophils 0.7 % (0.0-1.0); %Eosinophils 5.4 % (0.0-10.0); %Lymphocytes 13.1 % (21.0-51.0); %Monocytes 12.5 % (0.0-10.0); %Neutrophils 68.3 % (42.0-75.0); Hemoglobin 12.2 g/dL (12.0-16.0); Mean Corpuscular HGB CONC 31.2 g/dL (32.0-36.0); Mean Corpuscular Hemoglobin 26.9 pg (27.0-31.0); Mean Corpuscular Volume 86.3 fL (78.0-98.0); Mean Platelet Volume 8.4 fL (7.4-10.4); Platelet Count 292 thou/uL (130-400); RBC Distribution Width 17.5 % (11.5-14.5); Red Blood Cell (RBC) Count 4.52 mill/uL (4.20-5.40)
[2020-08-07 05:03] LABS: Anion Gap 13 mmol/L (10-20); BUN (Urea Nitrogen) 26 mg/dL (9.8-20.1); Calc. Creatinine Clearance 47 mL/min (70-130); Calcium 9.5 mg/dL (7.8-10.44); Carbon Dioxide 25 mmol/L (23-31); Chloride 105 mmol/L (98-107); Estimated GFR-MDRD 47; Glucose 135 mg/dL (83-110); Potassium 4.3 mmol/L (3.5-5.1); Sodium 139 mmol/L (136-145)
[2020-08-07] MEDS: Levothyroxine Sodium 88 MCG TAB PO SCH (06:38)
[2020-08-07] MEDS ORDERED: Polyethylene Glycol 3350 17 GM Packet PO PRN (08:05)
[2020-08-07] MEDS: traZODone HCl 50 MG TAB PO SCH (10:20)
[2020-08-07] MEDS: Donepezil HCl 5 MG TAB PO SCH (10:20)
[2020-08-07] MEDS: Trospium 20 MG TAB PO SCH ×2 (10:20→21:25)
[2020-08-07] MEDS: Aspirin 81 mg Enteric Coated Tablet PO SCH (10:21)
[2020-08-07] MEDS: Timolol 0.5% Ophth Soln 5 ml Bottle L EYE SCH (10:21)
[2020-08-07] MEDS: Senokot S 8.6-50 MG TAB PO SCH ×2 (10:21→21:25)
[2020-08-07] MEDS: Metoprolol Tartrate 100 MG TAB PO SCH (10:23)
[2020-08-07] MEDS: carBAMazepine 100 mg Chewable Tablet PO SCH ×3 (10:29→21:25)
[2020-08-07] MEDS ORDERED: Metoprolol Tartrate 50 MG TAB PO SCH (10:45)
[2020-08-07] MEDS: Rivaroxaban 15 MG TAB PO SCH (15:58)
--- NOTE | 2020-08-07 18:40 | PDOC.HOSPP ---
- Subjective Encounter Date: 08/07/20 Encounter Time: 09:00 Subjective: no overnight events. this morning, awake, alert, responding to commands but not oriented except to self. Has no complaints. Pending discharge - Objective Vital Signs & Weight: Vital Signs (12 hours) Temp Pulse Resp BP Pulse Ox 08/07/20 14:43 97.8 F 110 H 20 121/61 90 L 08/07/20 12:23 98 08/07/20 11:00 98.4 F 128 H 18 147/97 H 99 08/07/20 10:46 135 H 08/07/20 10:21 65 08/07/20 09:00 129 H 08/07/20 08:00 96 08/07/20 07:00 98.2 F 65 18 186/77 H 96 Weight Admit Weight 182 lb 12.8 oz Weight 182 lb 12.8 oz I&O: 08/06/20 08/07/20 08/08/20 06:59 06:59 06:59 Intake Total 480 606 Output Total 50 Balance 430 606 Result Diagrams: 08/07/20 04:24 08/07/20 04:24 Additional Labs: Accuchecks 08/07/20 08/06/20 10:58 22:22 POC Glucose 147 H 130 H Hospitalist ROS - Review of Systems Constitutional: denies: chills, sweats Respiratory: denies: cough, dry, shortness of breath Cardiovascular: denies: chest pain, palpitations Gastrointestinal: denies: nausea, vomiting, abdominal pain - Medication Medications: Active Medications Generic Name Dose Route Start Last Admin Trade Name Freq PRN Reason Stop Dose Admin Aspirin 81 mg 08/06/20 09:00 08/07/20 10:21 Aspirin 81 Mg Enteric Coated Tablet PO 81 mg DAILY ADAM Administration Atorvastatin Calcium 20 mg 08/05/20 21:00 08/06/20 21:44 Atorvastatin Calcium 20 Mg Tab PO 20 mg HS ADAM Administration Carbamazepine 100 mg 08/05/20 21:00 08/07/20 15:42 Carbamazepine 100 Mg Chewable Tablet PO 100 mg TID ADAM Administration Cyanocobalamin 1,000 mcg 08/06/20 09:00 08/06/20 10:23 Cyanocobalamin 1000 Mcg/Ml Vial IM 1,000 mcg Q2D AADM Administration Donepezil HCl 5 mg 08/06/20 09:00 08/07/20 10:20 Donepezil Hcl 5 Mg Tab PO 5 mg DAILY ADAM Administration Glipizide 5 mg 08/06/20 09:00 08/07/20 10:19 Glipizide Xl 2.5 Mg Tablet PO 5 mg DAILY ADAM Administration Glipizide 2.5 mg 08/05/20 21:00 08/06/20 21:44 Glipizide Xl 2.5 Mg Tablet PO 2.5 mg HS ADAM Administration Levothyroxine Sodium 88 mcg 08/06/20 06:00 08/07/20 06:38 Levothyroxine Sodium 88 Mcg Tab PO Not Given 599 ADAM Mirabegron 25 mg 08/06/20 09:00 08/07/20 10:21 Mirabegron Er 25 Mg Tab PO 25 mg DAILY ADAM Administration Pantoprazole Sodium 40 mg 08/06/20 09:00 08/07/20 10:21 Pantoprazole 40 Mg Tab PO 40 mg DAILY ADAM Administration Rivaroxaban 15 mg 08/05/20 17:00 08/07/20 15:58 Rivaroxaban 15 Mg Tab PO 15 mg QPM-WM ADAM Administration Senna/Docusate Sodium 1 tab 08/07/20 09:00 08/07/20 10:21 Senokot S 8.6-50 Mg Tab PO 1 tab BID ADAM Administration Sodium Chloride 10 ml 08/04/20 19:27 08/04/20 23:45 Flush - Normal Saline 10 Ml Syringe IVF 10 ml PRN PRN Administration Saline Flush Timolol Maleate 1 drop 08/06/20 09:00 08/07/20 10:21 Timolol 0.5% Ophth Soln 5 Ml Bottle L EYE 1 drp DAILY ADAM Administration Tramadol HCl 50 mg 08/05/20 17:15 08/06/20 14:40 Tramadol Hcl 50 Mg Tab PO 50 mg BIDPRN PRN Administration Pain 4-6 Trazodone HCl 50 mg 08/07/20 09:00 08/07/20 10:20 Trazodone Hcl 50 Mg Tab PO 50 mg DAILY ADAM Administration Trospium 20 mg 08/05/20 21:00 08/07/20 10:20 Trospium 20 Mg Tab PO 20 mg BID ADAM Administration - Exam General Appearance: NAD, awake alert Neck: no JVD Heart: irregular Heart - other findings: afib/flut on telemetry, HR 80s-100s Respiratory: CTAB, no wheezes, no rales, no ronchi Gastrointestinal: soft, non-tender, non-distended, normal bowel sounds Extremities: 1+ LE edema Musculoskeletal - other findings: 4/5 elbow flexion/extension, hip and knee flexion/extension, unchanged; Psychiatric: oriented to person. negative: oriented to place, oriented to time Psychiatric - other findings: following commands Hosp A/P - Plan #Dementia #B12 deficiency -dysarthria/slurred speech resolved days ago -B12 may contribute to neuropsychaitric disorder/dementia; pending studies -avoid benzos and anticholinergics if possible -continue b12 supplementation #TIA abcd2 < 4 based on limited HPI; cotinue aspirin 81mg PO daily #HFpEF H2FPEF score 7-8/9; high likelihood of HFpEF Echo c/w pulmonary HTN but not PA pressures -control blood pressure -monitor for tolerance of afib #chronic atrial fibrillation well controlled- continue rivaroxaban, changed metoprolol tartrate from once to twice daily Disposition: discharge back to assisted living
[2020-08-07] MEDS: Metoprolol Tartrate 50 MG TAB PO SCH ×2 (21:13→21:24)
[2020-08-07] MEDS: Atorvastatin Calcium 20 MG TAB PO SCH (21:24)
[2020-08-08] MEDS: Levothyroxine Sodium 88 MCG TAB PO SCH (05:40)
[2020-08-08] MEDS: carBAMazepine 100 mg Chewable Tablet PO SCH ×3 (08:46→20:27)
[2020-08-08] MEDS: Metoprolol Tartrate 50 MG TAB PO SCH ×2 (08:46→20:27)
[2020-08-08] MEDS: Donepezil HCl 5 MG TAB PO SCH (08:47)
[2020-08-08] MEDS: Aspirin 81 mg Enteric Coated Tablet PO SCH (08:48)
[2020-08-08] MEDS: Timolol 0.5% Ophth Soln 5 ml Bottle L EYE SCH (09:54)
[2020-08-08] MEDS: Trospium 20 MG TAB PO SCH ×2 (09:57→20:28)
[2020-08-08] MEDS: Senokot S 8.6-50 MG TAB PO SCH ×2 (10:00→20:27)
[2020-08-08] MEDS: Cyanocobalamin 1000 MCG/ML VIAL IM SCH (10:06)
[2020-08-08] MEDS: traZODone HCl 50 MG TAB PO SCH ×2 (10:15→20:28)
[2020-08-08] MEDS ORDERED: Cyanocobalamin (Vitamin B-12) 1,000 MCG TAB PO SCH (11:30)
--- NOTE | 2020-08-08 12:01 | PDOC.HOSPP ---
- Subjective Encounter Date: 08/08/20 Encounter Time: 08:00 Subjective: no overnight events. Discharge delayed yesterday, as described in binder caser note. this morning, awake and alert, oriented to self, has no complaints except chest pain that she can't describe. Pending placement - Objective Vital Signs & Weight: Vital Signs (12 hours) Temp Pulse Resp BP BP Pulse Ox 08/08/20 11:17 98 F 72 18 140/73 99 08/08/20 08:26 98 08/08/20 07:40 96.4 F L 83 18 137/72 98 08/08/20 04:00 97.0 F L 93 18 199/93 H 100 08/08/20 00:00 97.1 F L 92 19 95 Weight Admit Weight 182 lb 12.8 oz Weight 182 lb 12.8 oz I&O: 08/07/20 08/08/20 08/09/20 06:59 06:59 06:59 Intake Total 480 606 Output Total 50 20 Balance 430 586 Result Diagrams: 08/07/20 04:24 08/07/20 04:24 Additional Labs: Accuchecks 08/07/20 21:27 POC Glucose 151 H Hospitalist ROS - Review of Systems Constitutional: denies: chills, sweats Respiratory: denies: cough, dry, shortness of breath Cardiovascular: reports: chest pain Gastrointestinal: denies: nausea, vomiting, abdominal pain - Medication Medications: Active Medications Generic Name Dose Route Start Last Admin Trade Name Freq PRN Reason Stop Dose Admin Aspirin 81 mg 08/06/20 09:00 08/08/20 08:48 Aspirin 81 Mg Enteric Coated Tablet PO Not Given DAILY ADAM Atorvastatin Calcium 20 mg 08/05/20 21:00 08/07/20 21:24 Atorvastatin Calcium 20 Mg Tab PO Not Given HS ADAM Carbamazepine 100 mg 08/05/20 21:00 08/08/20 08:46 Carbamazepine 100 Mg Chewable Tablet PO 100 mg TID ADAM Administration Donepezil HCl 5 mg 08/06/20 09:00 08/08/20 08:47 Donepezil Hcl 5 Mg Tab PO 5 mg DAILY ADAM Administration Glipizide 5 mg 08/06/20 09:00 08/08/20 09:56 Glipizide Xl 2.5 Mg Tablet PO 5 mg DAILY ADAM Administration Glipizide 2.5 mg 08/05/20 21:00 08/07/20 21:25 Glipizide Xl 2.5 Mg Tablet PO Not Given HS ADAM Levothyroxine Sodium 88 mcg 08/06/20 06:00 08/08/20 05:40 Levothyroxine Sodium 88 Mcg Tab PO Not Given 0600 ADAM Metoprolol Tartrate 50 mg 08/07/20 21:00 08/08/20 08:46 Metoprolol Tartrate 50 Mg Tab PO 50 mg BID ADAM Administration Mirabegron 25 mg 08/06/20 09:00 08/08/20 09:59 Mirabegron Er 25 Mg Tab PO 25 mg DAILY ADAM Administration Pantoprazole Sodium 40 mg 08/06/20 09:00 08/08/20 09:59 Pantoprazole 40 Mg Tab PO 40 mg DAILY ADAM Administration Rivaroxaban 15 mg 08/05/20 17:00 08/07/20 15:58 Rivaroxaban 15 Mg Tab PO 15 mg QPM-WM ADAM Administration Senna/Docusate Sodium 1 tab 08/07/20 09:00 08/08/20 10:00 Senokot S 8.6-50 Mg Tab PO Not Given BID ADAM Sodium Chloride 10 ml 08/04/20 19:27 08/04/20 23:45 Flush - Normal Saline 10 Ml Syringe IVF 10 ml PRN PRN Administration Saline Flush Timolol Maleate 1 drop 08/06/20 09:00 08/08/20 09:54 Timolol 0.5% Ophth Soln 5 Ml Bottle L EYE 1 drp DAILY ADAM Administration Tramadol HCl 50 mg 08/05/20 17:15 08/06/20 14:40 Tramadol Hcl 50 Mg Tab PO 50 mg BIDPRN PRN Administration Pain 4-6 Trospium 20 mg 08/05/20 21:00 08/08/20 09:57 Trospium 20 Mg Tab PO 20 mg BID ADAM Administration - Exam General Appearance: NAD, awake alert Eye: PERRL, anicteric sclera Neck: no JVD Heart: irregular Heart - other findings: HR 80-100s on telemetry, afib Respiratory: CTAB, no wheezes, no rales, no ronchi Gastrointestinal: soft, non-tender, non-distended Extremities: 1+ LE edema Neurological - other findings: unchanged compared to yesterday Psychiatric: oriented to person. negative: oriented to place, oriented to time Hosp A/P - Plan #Dementia #B12 deficiency #slurred speech -dysarthria/slurred speech resolved days ago -B12 may contribute to neuropsychaitric disorder/dementia; pending studies -avoid benzos and anticholinergics if possible -continue b12 supplementation #TIA CT head and repeat CT head unremarkable for acute process; echo shows no relev ant finding likely related to B12 deficiency rather than TIA; Received conflicting reports regarding patient's baseline but per CM communication with DON, patient apparently had behavioral and neurological problems at least subacutely; attempted to reach DON via number provided by CM multiple times to no avail -continue aspirin 81mg PO daily #HFpEF H2FPEF score 7-8/9; high likelihood of HFpEF Echo c/w pulmonary HTN but not PA pressures -control blood pressure -monitor for tolerance of afib #chronic atrial fibrillation well controlled- continue rivaroxaban, changed metoprolol tartrate from once to twice daily Disposition: Discharge delayed yesterday. pending PT evaluation for disposition recommendations. Will require [facility]IL[facility] and/or SNF depending on improvement over time
[2020-08-08] MEDS: Rivaroxaban 15 MG TAB PO SCH (17:22)
[2020-08-08] MEDS: Atorvastatin Calcium 20 MG TAB PO SCH (20:27)
--- NOTE | 2020-08-08 21:26 | PDOC.EVN ---
Event Note - Event Note Event Note: Notified by RN, patient continues with AMS, has now pulled off colostomy bag twice. She is otherwise stable. Vitals: T 97.8, HR 98, BP 155/83, O2 sat 97% on RA. Patient refusing all meds including Trazadone. Requesting soft restraints. Order placed. Will order labs for AM.
[2020-08-08 22:00] LABS: #Eosinphils 0.2 thou/uL (0.0-0.7); #Lymphocytes 1.2 thou/uL (1.20-3.40); #Neutrophils 4.1 thou/uL (1.40-6.50); %Basophils 0.7 % (0.0-1.0); %Eosinophils 2.4 % (0.0-10.0); %Lymphocytes 18.9 % (21.0-51.0); %Monocytes 14.6 % (0.0-10.0); %Neutrophils 63.4 % (42.0-75.0); Hemoglobin 12.7 g/dL (12.0-16.0); Mean Corpuscular HGB CONC 31.2 g/dL (32.0-36.0); Mean Corpuscular Hemoglobin 27.1 pg (27.0-31.0); Mean Corpuscular Volume 86.6 fL (78.0-98.0); Mean Platelet Volume 7.5 fL (7.4-10.4); Platelet Count 283 thou/uL (130-400); RBC Distribution Width 17.5 % (11.5-14.5); Red Blood Cell (RBC) Count 4.71 mill/uL (4.20-5.40); White Blood Cell (WBC) Count 6.5 thou/uL (4.8-10.8)
[2020-08-08 22:11] LABS: Lactic Acid 1.5 mmol/L (0.5-2.2)
[2020-08-08 22:17] LABS: ALT (SGPT) 8 U/L (8-55); AST (SGOT) 22 U/L (5-34); Alkaline Phosphatase 124 U/L (40-110); Anion Gap 17 mmol/L (10-20); BUN (Urea Nitrogen) 23 mg/dL (9.8-20.1); Bilirubin, Total 0.7 mg/dL (0.2-1.2); Calc. Creatinine Clearance 46 mL/min (70-130); Calcium 9.3 mg/dL (7.8-10.44); Carbon Dioxide 21 mmol/L (23-31); Chloride 104 mmol/L (98-107); Estimated GFR-MDRD 47; Globulin 3.4 g/dL (2.4-3.5); Glucose 79 mg/dL (83-110); Potassium 4.3 mmol/L (3.5-5.1); Protein, Total 7.4 g/dL (6.0-8.3); Sodium 138 mmol/L (136-145)
[2020-08-08] MEDS ORDERED: Sterile Water 10 ML VIAL FS SCH (22:45)
[2020-08-08] MEDS ORDERED: Ziprasidone 20 MG VIAL IM SCH (22:45)
[2020-08-09 05:30] LABS: Anion Gap 15 mmol/L (10-20); BUN (Urea Nitrogen) 22 mg/dL (9.8-20.1); Calc. Creatinine Clearance 49 mL/min (70-130); Calcium 9.2 mg/dL (7.8-10.44); Carbon Dioxide 22 mmol/L (23-31); Chloride 103 mmol/L (98-107); Estimated GFR-MDRD 50; Glucose 142 mg/dL (83-110); Magnesium 1.9 mg/dL (1.6-2.6); Potassium 4.3 mmol/L (3.5-5.1); Sodium 136 mmol/L (136-145)
[2020-08-09] MEDS: Levothyroxine Sodium 88 MCG TAB PO SCH (05:59)
[2020-08-09] MEDS: carBAMazepine 100 mg Chewable Tablet PO SCH ×3 (08:56→19:36)
[2020-08-09] MEDS: Senokot S 8.6-50 MG TAB PO SCH ×2 (08:57→19:44)
[2020-08-09] MEDS: Aspirin 81 mg Enteric Coated Tablet PO SCH (08:57)
[2020-08-09] MEDS: Trospium 20 MG TAB PO SCH ×2 (08:57→19:39)
[2020-08-09] MEDS: Donepezil HCl 5 MG TAB PO SCH (08:58)
[2020-08-09] MEDS: Metoprolol Tartrate 50 MG TAB PO SCH ×2 (08:58→19:37)
[2020-08-09] MEDS: Timolol 0.5% Ophth Soln 5 ml Bottle L EYE SCH (08:59)
[2020-08-09] MEDS: Cyanocobalamin (Vitamin B-12) 1,000 MCG TAB PO SCH (08:59)
[2020-08-09] MEDS ORDERED: Cyanocobalamin (Vitamin B-12) 1,000 MCG TAB PO SCH (09:00)
[2020-08-09] MEDS: Rivaroxaban 15 MG TAB PO SCH (17:30)
--- NOTE | 2020-08-09 18:27 | PDOC.HOSPP ---
- Subjective Encounter Date: 08/09/20 Encounter Time: 08:00 Subjective: no overnight events. Less agitated, this morning, restraints removed. Mental state unchanged and at baseline, alert and oriented x 1. has no complaints. pending placement. - Objective Vital Signs & Weight: Vital Signs (12 hours) Temp Pulse Resp BP BP Pulse Ox 08/09/20 16:00 97.5 F L 88 18 148/86 H 100 08/09/20 12:33 97.5 F L 86 18 148/81 H 100 08/09/20 09:00 100 08/09/20 08:59 80 08/09/20 08:00 97.8 F 80 18 147/79 H Weight Admit Weight 182 lb 12.8 oz Weight 182 lb 12.8 oz I&O: 08/08/20 08/09/20 08/10/20 06:59 06:59 06:59 Intake Total 606 470 200 Output Total 20 50 Balance 586 420 200 Result Diagrams: 08/08/20 21:45 08/09/20 04:57 Additional Labs: Accuchecks 08/09/20 08/09/20 08/09/20 16:57 11:51 04:24 POC Glucose 97 145 H 141 H 08/09/20 08/08/20 08/08/20 00:55 21:07 16:26 POC Glucose 135 H 83 135 H 08/08/20 08/08/20 08/07/20 12:16 05:00 16:45 POC Glucose 149 H 134 H 178 H Hospitalist ROS - Review of Systems Constitutional: denies: chills, sweats Respiratory: denies: cough, shortness of breath Cardiovascular: denies: chest pain, palpitations Gastrointestinal: denies: nausea, vomiting, abdominal pain - Medication Medications: Active Medications Generic Name Dose Route Start Last Admin Trade Name Freq PRN Reason Stop Dose Admin Aspirin 81 mg 08/06/20 09:00 08/09/20 08:57 Aspirin 81 Mg Enteric Coated Tablet PO 81 mg DAILY ADAM Administration Atorvastatin Calcium 20 mg 08/05/20 21:00 08/08/20 20:27 Atorvastatin Calcium 20 Mg Tab PO Not Given HS ADAM Carbamazepine 100 mg 08/05/20 21:00 08/09/20 17:30 Carbamazepine 100 Mg Chewable Tablet PO 100 mg TID ADAM Administration Cyanocobalamin 2,000 mcg 08/09/20 09:00 08/09/20 08:59 Cyanocobalamin (Vitamin B-12) 1,000 Mcg Tab PO 2,000 mcg DAILY ADAM Administration Donepezil HCl 5 mg 08/06/20 09:00 08/09/20 08:58 Donepezil Hcl 5 Mg Tab PO 5 mg DAILY ADAM Administration Glipizide 5 mg 08/06/20 09:00 08/09/20 09:01 Glipizide Xl 2.5 Mg Tablet PO 5 mg DAILY ADAM Administration Glipizide 2.5 mg 08/05/20 21:00 08/08/20 20:27 Glipizide Xl 2.5 Mg Tablet PO Not Given HS ADAM Levothyroxine Sodium 88 mcg 08/06/20 06:00 08/09/20 05:59 Levothyroxine Sodium 88 Mcg Tab PO Not Given 0600 ADAM Metoprolol Tartrate 50 mg 08/07/20 21:00 08/09/20 08:58 Metoprolol Tartrate 50 Mg Tab PO 50 mg BID ADAM Administration Mirabegron 25 mg 08/06/20 09:00 08/09/20 08:57 Mirabegron Er 25 Mg Tab PO 25 mg DAILY ADAM Administration Pantoprazole Sodium 40 mg 08/06/20 09:00 08/09/20 08:58 Pantoprazole 40 Mg Tab PO 40 mg DAILY ADAM Administration Rivaroxaban 15 mg 08/05/20 17:00 08/09/20 17:30 Rivaroxaban 15 Mg Tab PO 15 mg QPM-WM ADAM Administration Senna/Docusate Sodium 1 tab 08/07/20 09:00 08/09/20 08:57 Senokot S 8.6-50 Mg Tab PO 1 tab BID ADAM Administration Sodium Chloride 10 ml 08/04/20 19:27 08/04/20 23:45 Flush - Normal Saline 10 Ml Syringe IVF 10 ml PRN PRN Administration Saline Flush Timolol Maleate 1 drop 08/06/20 09:00 08/09/20 08:59 Timolol 0.5% Ophth Soln 5 Ml Bottle L EYE 1 drp DAILY ADAM Administration Tramadol HCl 50 mg 08/05/20 17:15 08/06/20 14:40 Tramadol Hcl 50 Mg Tab PO 50 mg BIDPRN PRN Administration Pain 4-6 Trazodone HCl 50 mg 08/08/20 21:00 08/08/20 20:28 Trazodone Hcl 50 Mg Tab PO Not Given 2100 ADAM Trospium 20 mg 08/05/20 21:00 08/09/20 08:57 Trospium 20 Mg Tab PO 20 mg BID ADAM Administration - Exam General Appearance: NAD, awake alert Neck: no JVD Heart: RRR, no gallops, no rubs Respiratory: CTAB, no wheezes, no rales, no ronchi Gastrointestinal: soft, non-tender, non-distended, normal bowel sounds Extremities: 1+ LE edema Psychiatric: oriented to person. negative: oriented to place, oriented to time Hosp A/P - Plan #Dementia #B12 deficiency #slurred speech -dysarthria/slurred speech resolved days ago -B12 may contribute to neuropsychaitric disorder/dementia; pending studies -avoid benzos and anticholinergics if possible -continue b12 supplementation #TIA CT head and repeat CT head unremarkable for acute process; echo shows no relevant finding likely related to B12 deficiency rather than TIA; Received conflicting reports regarding patient's baseline but per CM communication with DON, patient apparently had behavioral and neurological problems at least subacutely; attempted to reach DON via number provided by CM multiple times to no avail -continue aspirin 81mg PO daily #HFpEF H2FPEF score 7-8/9; high likelihood of HFpEF Echo c/w pulmonary HTN but not PA pressures -control blood pressure -monitor for tolerance of afib #chronic atrial fibrillation well controlled- continue rivaroxaban, changed metoprolol tartrate from once to twice daily Disposition: Will require [facility] and/or SNF depending on improvement over time
[2020-08-09] MEDS: traZODone HCl 50 MG TAB PO SCH (19:37)
[2020-08-09] MEDS: Atorvastatin Calcium 20 MG TAB PO SCH (19:40)
[2020-08-10] MEDS: Levothyroxine Sodium 88 MCG TAB PO SCH (05:40)
[2020-08-10] MEDS: Trospium 20 MG TAB PO SCH ×2 (09:34→20:42)
[2020-08-10] MEDS: Senokot S 8.6-50 MG TAB PO SCH ×2 (09:35→20:42)
[2020-08-10] MEDS: Metoprolol Tartrate 50 MG TAB PO SCH ×2 (09:35→20:41)
[2020-08-10] MEDS: Aspirin 81 mg Enteric Coated Tablet PO SCH (09:35)
[2020-08-10] MEDS: Timolol 0.5% Ophth Soln 5 ml Bottle L EYE SCH (09:36)
[2020-08-10] MEDS: carBAMazepine 100 mg Chewable Tablet PO SCH ×3 (09:37→20:42)
[2020-08-10] MEDS: Cyanocobalamin (Vitamin B-12) 1,000 MCG TAB PO SCH (09:37)
[2020-08-10] MEDS: Donepezil HCl 5 MG TAB PO SCH (09:37)
[2020-08-10] MEDS: Rivaroxaban 15 MG TAB PO SCH (18:43)
--- NOTE | 2020-08-10 19:35 | PDOC.HOSPP ---
- Subjective Encounter Date: 08/10/20 Encounter Time: 11:00 Subjective: no overnight events. this morning, awake and alert, talkative with no slurred speech, no agitation overnight. Pending placement - Objective Vital Signs & Weight: Vital Signs (12 hours) Temp Pulse Resp BP Pulse Ox 08/10/20 16:00 98.1 F 70 16 123/73 96 08/10/20 12:00 97.9 F 61 16 151/81 H 96 08/10/20 09:30 97 08/10/20 07:41 97.8 F 95 15 118/79 97 Weight Admit Weight 182 lb 12.8 oz Weight 182 lb 12.8 oz I&O: 08/09/20 08/10/20 08/11/20 06:59 06:59 06:59 Intake Total 470 350 Output Total 50 Balance 420 350 Result Diagrams: 08/08/20 21:45 08/09/20 04:57 Additional Labs: Accuchecks 08/10/20 08/10/20 08/09/20 16:07 12:32 20:28 POC Glucose 101 H 142 H 135 H Hospitalist ROS - Review of Systems Constitutional: denies: chills Respiratory: denies: cough, shortness of breath Gastrointestinal: denies: abdominal pain, diarrhea Genitourinary: denies: hematuria - Medication Medications: Active Medications Generic Name Dose Route Start Last Admin Trade Name Freq PRN Reason Stop Dose Admin Aspirin 81 mg 08/06/20 09:00 08/10/20 09:35 Aspirin 81 Mg Enteric Coated Tablet PO 81 mg DAILY ADAM Administration Atorvastatin Calcium 20 mg 08/05/20 21:00 08/09/20 19:40 Atorvastatin Calcium 20 Mg Tab PO 20 mg HS ADAM Administration Carbamazepine 100 mg 08/05/20 21:00 08/10/20 18:40 Carbamazepine 100 Mg Chewable Tablet PO Not Given TID ADAM Cyanocobalamin 2,000 mcg 08/09/20 09:00 08/10/20 09:37 Cyanocobalamin (Vitamin B-12) 1,000 Mcg Tab PO 2,000 mcg DAILY ADAM Administration Donepezil HCl 5 mg 08/06/20 09:00 08/10/20 09:37 Donepezil Hcl 5 Mg Tab PO 5 mg DAILY ADAM Administration Glipizide 5 mg 08/06/20 09:00 08/10/20 09:33 Glipizide Xl 2.5 Mg Tablet PO 5 mg DAILY ADAM Administration Glipizide 2.5 mg 08/05/20 21:00 08/09/20 19:44 Glipizide Xl 2.5 Mg Tablet PO 2.5 mg HS ADAM Administration Levothyroxine Sodium 88 mcg 08/06/20 06:00 08/10/20 05:40 Levothyroxine Sodium 88 Mcg Tab PO 88 mcg 0600 ADAM Administration Metoprolol Tartrate 50 mg 08/07/20 21:00 08/10/20 09:35 Metoprolol Tartrate 50 Mg Tab PO 50 mg BID ADAM Administration Mirabegron 25 mg 08/06/20 09:00 08/10/20 09:32 Mirabegron Er 25 Mg Tab PO 25 mg DAILY ADAM Administration Pantoprazole Sodium 40 mg 08/06/20 09:00 08/10/20 09:36 Pantoprazole 40 Mg Tab PO 40 mg DAILY ADAM Administration Rivaroxaban 15 mg 08/05/20 17:00 08/10/20 18:43 Rivaroxaban 15 Mg Tab PO 15 mg QPM-WM ADAM Administration Senna/Docusate Sodium 1 tab 08/07/20 09:00 08/10/20 09:35 Senokot S 8.6-50 Mg Tab PO 1 tab BID ADAM Administration Sodium Chloride 10 ml 08/04/20 19:27 08/04/20 23:45 Flush - Normal Saline 10 Ml Syringe IVF 10 ml PRN PRN Administration Saline Flush Timolol Maleate 1 drop 08/06/20 09:00 08/10/20 09:36 Timolol 0.5% Ophth Soln 5 Ml Bottle L EYE 1 drp DAILY ADAM Administration Tramadol HCl 50 mg 08/05/20 17:15 08/06/20 14:40 Tramadol Hcl 50 Mg Tab PO 50 mg BIDPRN PRN Administration Pain 4-6 Trazodone HCl 50 mg 08/08/20 21:00 08/09/20 19:37 Trazodone Hcl 50 Mg Tab PO 50 mg 2100 ADAM Administration Trospium 20 mg 08/05/20 21:00 08/10/20 09:34 Trospium 20 Mg Tab PO 20 mg BID ADAM Administration - Exam General Appearance: NAD, awake alert Neck: no JVD Heart: no gallops, no rubs, irregular Respiratory: CTAB, no wheezes, no rales, no ronchi Extremities: 1+ LE edema Psychiatric: oriented to person. negative: oriented to place, oriented to time Hosp A/P - Plan #Dementia #B12 deficiency #slurred speech -dysarthria/slurred speech resolved days ago -B12 may contribute to neuropsychaitric disorder/dementia; pending studies -avoid benzos and anticholinergics if possible -continue b12 supplementation #TIA CT head and repeat CT head unremarkable for acute process; echo shows no relevant finding likely related to B12 deficiency rather than TIA; Received conflicting reports regarding patient's baseline but per CM communication with DON, patient apparently had behavioral and neurological problems at least subacutely; attempted to reach DON via number provided by CM multiple times to no avail -continue aspirin 81mg PO daily #HFpEF H2FPEF score 7-8/9; high likelihood of HFpEF Echo c/w pulmonary HTN but not PA pressures -control blood pressure -monitor for tolerance of afib #chronic atrial fibrillation well controlled- continue rivaroxaban, changed metoprolol tartrate from once to twice daily Disposition: SNF accepted; awaiting family to sign documents
[2020-08-10] MEDS: Atorvastatin Calcium 20 MG TAB PO SCH (20:42)
[2020-08-10] MEDS: traZODone HCl 50 MG TAB PO SCH (20:42)
[2020-08-11] MEDS: Levothyroxine Sodium 88 MCG TAB PO SCH (06:04)
[2020-08-11 07:33] VITALS: BP 146/86; TEMP 98.3
[2020-08-11] MEDS ORDERED: traZODone HCl 50 MG TAB PO SCH (09:45)
[2020-08-11] MEDS: Senokot S 8.6-50 MG TAB PO SCH (10:09)
[2020-08-11] MEDS: Trospium 20 MG TAB PO SCH (10:09)
[2020-08-11] MEDS: Metoprolol Tartrate 50 MG TAB PO SCH (10:11)
[2020-08-11] MEDS: Cyanocobalamin (Vitamin B-12) 1,000 MCG TAB PO SCH (10:11)
[2020-08-11] MEDS: Aspirin 81 mg Enteric Coated Tablet PO SCH (10:11)
[2020-08-11] MEDS: Donepezil HCl 5 MG TAB PO SCH (10:11)
[2020-08-11] MEDS: Timolol 0.5% Ophth Soln 5 ml Bottle L EYE SCH (10:12)
[2020-08-11] MEDS: carBAMazepine 100 mg Chewable Tablet PO SCH (10:13)
[2020-08-11] MEDS ORDERED: Lorazepam 2 MG/ML VIAL SLOW IVP SCH (10:15)
--- NOTE | 2020-08-12 05:14 | PQF ---
CLINICAL DOCUMENTATION CLARIFICATION FORM: Dear : Mitch Castillo Date / Time: 08/12/20 4082 Please exercise your independent, professional judgment in responding to the clarification form. Clinical indicators are provided on the bottom of this form for your review Please check appropriate box(es): Conflicting documentation was noted in the Medical Record; please clarify if patient is being treated/monitored for: [ ] Acute Diastolic CHF [ x ] Chronic Diastolic CHF [ ] Ruled out CHF [ ] Other diagnosis [ ] Unable to determine Physician Signature: Date/Time: For continuity of documentation, please document condition throughout progress notes and discharge summary. Thank You. To be completed by CDI/Coding staff for physician review: Present Clinical Indicators - Signs / Symptoms / Labs Results and Location in Medical Record [X] BP 146/95, Pulse 81, resp 18, Temp 97.6 Vital signs 08/04 [X] BNP 680.5, Troponin 0.042; 0.034; 0.040 . 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 p1 08/04 [facility] [employer] [X] AFib H&P p1 08/04 [facility] [employer] [X] HLD H&P p1 08/04 [facility] [employer] [X] DM H&P p1 08/04 [facility] [employer] [X] CKD H&P p1 08/04 [facility] [employer] [X] HTN H&P p1 08/04 [facility] [employer] Present Treatments Results and Location in Medical Record [X] IV Lasix 20 mg JAN 18 [X] Aspirin 81 mg oral JAN 15 [X] TTE Cardiac procedure DR Rodriguez 08/05 [X] Strick I&Os H&P p8 08/04 [facility] [employer] CDS/Self Pay Collector Signature: Kiara Angel Phone #: ext [phone] Date/Time: 08/12/202012 This is a permanent part of the Medical Record [facility]
--- NOTE | 2020-08-12 05:15 | PQF ---
CLINICAL DOCUMENTATION CLARIFICATION FORM: Dear : Mitch Castillo Date / Time: 08/12/20 0514 Please exercise your independent, professional judgment in responding to the clarification form. Clinical indicators are provided on the bottom of this form for your review In your clinical opinion based on clinical findings below, can you please identify the etiology of Altered mental status if due to: Please check appropriate box(es): [ ] Parkinson Disease with Dementia [ ] TIA [x ] Vitamin B12 Deficiency [ ] Other diagnosis [ ] Unable to determine Physician Signature: Date/Time: For continuity of documentation, please document condition throughout progress notes and discharge summary. Thank You. To be completed by CDI/Coding staff for physician review: Present Clinical Indicators - Signs / Symptoms / Labs Results and Location in Medical Record [X] BP 146/95, Pulse 81, resp 18, Temp 97.6 Vital signs 08/04 [X] Vitamin B12 196 Laboratory 08/05 [X] Altered mental status with baseline dementia rule out TIA H&P p7 08/04 [facility] [employer] [X] Fussing and fighting with nurses like typical alzhemier patient, doubt this represents TIA or stroke Event note 08/05 Dr Urrutia [X] B12 may contribute to neuropsychaitric disorder/Dementia PN p4 08/10 Dr Meyer [X] Findings likely related to B12 deficiency rather than TIA PN p5 08/10 Dr Meyer Present Risk Factors Results and Location in Medical Record [X] 89 year-old Female H&P p1 08/04 [facility] [employer] [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 H&P p1 08/04 [facility] [employer] [X] AFib H&P p1 08/04 [facility] [employer] [X] HLD H&P p1 08/04 [facility] [employer] [X] DM H&P p1 08/04 [facility] [employer] [X] CKD H&P p1 08/04 [facility] [employer] Present Treatments Results and Location in Medical Record [X] Geodon 20 mg IM JAN 18 [X] Desyrel 50 mg oral JAN 18 [X] IVF NS 1L JAN 18 [X] IV Ativan 2 mg JAN 18 [X] Cyanocobalamin 1000 mcg oral JAN 18 [X] Aspirin 81 mg oral JAN 18 [X] CT brain Imaging Dr Jay 08/04 [X] Neurology Consult Dr Kaleb Escalante 08/05 [X] Neuro check every 4hrs H&P p7 08/04 [facility]BUENA CDS/Drug Abuse Worker Signature: Kiara Wadsworth Hanyramosleander Phone #: ext [phone] Date/Time: 08/12/2020 0514 This is a permanent part of the Medical Record [facility]
[2020-08-12] MEDS ORDERED: Levothyroxine 100 MCG SDV IVP SCH (06:00)
[2020-08-12] MEDS ORDERED: traZODone HCl 50 MG TAB PO SCH (09:00)
--- NOTE | 2020-08-12 13:20 | DIS ---
DATE OF ADMISSION: 08/04/2020 DATE OF DISCHARGE: 08/11/2020 HOSPITAL COURSE: Ms. Harry is an 89-year-old female with a medical history of dementia, persistent atrial fibrillation on Xarelto, who presented with slurred speech. TIA stroke workup was negative, but she was found to have vitamin B12 deficiency. In addition to that, polypharmacy was reviewed and benzodiazepines were discontinued. She continued to be intermittently agitated even though her agitation was usually well controlled with trazodone. Prior to discharge the family was explained regarding the neuropsychiatric affect of B12 deficiency and that improvement if any will take weeks if not months. On the day of discharge, the patient was calm and had no complaints. PHYSICAL EXAMINATION: VITAL SIGNS: Blood pressure 146/86, pulse 84, respiratory rate 16, oxygen saturation 93% on room air, temperature 98.3. GENERAL: Lying comfortably in bed, awake, mildly drowsy after receiving the dosage of trazodone. NECK: No JVD. HEART: Irregularly irregular rhythm. Rate between 70 to 80. No gallops or rubs. RESPIRATORY EXAM: Clear to auscultation bilaterally. No wheezing, rales, or rhonchi. EXTREMITIES: +1 pitting edema bilateral equal up to knee level. PSYCHIATRIC: Oriented to person, not to place or time, which is her baseline. MEDICATION LIST: New medications; 1. Vitamin B12 1000 mcg oral daily. 2. Atorvastatin 40 mg at bedtime. 3. Aspirin 81 mg daily. Continued medications; 1. Tylenol p.r.n. pain. 2. VESIcare. 3. Ondansetron. 4. Timolol ophthalmic solution. 5. Pantoprazole. 6. Milk of magnesia. 7. Levothyroxine. 8. Donepezil. 9. Glipizide. 10. Myrbetriq. 11. Rivaroxaban. 12. Carbamazepine. 13. Tramadol p.r.n. pain. 14. Metoprolol tartrate. 15. Trazodone. Discontinued medications; 1. Simvastatin. 2. Lorazepam. Job ID: [id number]
--- NOTE | 2020-08-18 16:42 | EKG ---
Test Reason : AMS Blood Pressure : / mmHG Vent. Rate : 087 BPM Atrial Rate : 098 BPM P-R Int : 000 ms QRS Dur : 122 ms QT Int : 400 ms P-R-T Axes : 000 041 -25 degrees QTc Int : 481 ms Atrial fibrillation Right bundle branch block T wave abnormality, consider lateral ischemia or digitalis effect Abnormal ECG Confirmed by DANIELLE RICHARDSON DO ([id number]), news editor EDUARDA RODRÍGUEZ ([id number]) on 08/18/2020 4:42:15 PM Referred By: DEBRA Confirmed By:DANIELLE RICHARDSON DO
== END 2020-08-11 11:24 | DRG 641 ==
LOC: ERS 14:22 → 2SE 18:33 → T4-B 08-08 14:32
PROVIDERS: ADMIT Family Medicine; ATTEND Family Medicine
DX: E53.8 Deficiency of other specified B group vitamins (principal); I13.0 Hypertensive heart and chronic kidney disease with heart failure and stage 1 through stage 4 chronic kidney disease, or unspecified chronic kidney disease; I48.20 Chronic atrial fibrillation, unspecified; N17.9 Acute kidney failure, unspecified; F02.81 Dementia in other diseases classified elsewhere, unspecified severity, with behavioral disturbance; I50.32 Chronic diastolic (congestive) heart failure; Z66 Do not resuscitate; Z20.828 Contact with and (suspected) exposure to other viral communicable diseases; G20 Parkinson's disease; H40.9 Unspecified glaucoma; E78.00 Pure hypercholesterolemia, unspecified; N32.81 Overactive bladder; F32.9 Major depressive disorder, single episode, unspecified; E78.5 Hyperlipidemia, unspecified; N18.3 Chronic kidney disease, stage 3 (moderate); E11.22 Type 2 diabetes mellitus with diabetic chronic kidney disease; R29.6 Repeated falls; K21.9 Gastro-esophageal reflux disease without esophagitis; R79.89 Other specified abnormal findings of blood chemistry; I27.20 Pulmonary hypertension, unspecified; Z28.21 Immunization not carried out because of patient refusal; Z78.1 Physical restraint status; Z93.3 Colostomy status; Z90.11 Acquired absence of right breast and nipple; Z95.0 Presence of cardiac pacemaker; Z79.899 Other long term (current) drug therapy; Z79.01 Long term (current) use of anticoagulants; Z79.84 Long term (current) use of oral hypoglycemic drugs
CPT/HCPCS: 36415; 36416; 70450; 70491; 71045; 80048; 80053; 80061; 81003; 81015; 82140; 82553; 82607; 82746; 83605; 83690; 83735; 83880; 84443; 84484; 85025; 85046; 86340; 87040; 87086; 87635; 93005; 93306; 95712; 95816; 95819; 95957; J1940; J2060; J3420; J3486; Q9967; U0003

== ENCOUNTER 2020-10-11 14:45 | Emergency (ER) | payer MEDICARE ==
--- NOTE | 2020-10-11 16:02 | CT ---
CT BRAIN NONCONTRAST: DATE: 10/11/2020 HISTORY: 89-year-old female status post acute head trauma from fall FINDINGS: There is no evidence of acute intra-axial or extra-axial hemorrhage. There is no midline shift or any other mass effect. There is no extra-axial fluid collection. Ventriculomegaly involving lateral and third ventricles. Normal size fourth ventricle. Calvarium is intact. There is diffuse brain paren chymal volume loss. There are low attenuation areas in the white matter. These are nonspecific, but in a patient of this age, they are probably chronic ischemic white matter changes due to microvascula r atherosclerosis. Multiple tiny old infarctions in right cerebellar hemisphere, and a few on the left. Small to moderate-sized old right paramedian occipital infarction in right [employer]OME[employer]ER territory. Small old infarction near junction between left temporal, parietal, and occipital lobes, in left MCA territory. Moderate-sized old left upper parietal infarction in left MCA territory. No interval jolley e compared to 08/06/2020 and 11/06/2019 IMPRESSION: 1) No acute intracranial findings. 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 3) involutional changes and chronic ischemic white matter changes.
--- NOTE | 2020-10-11 16:04 | CT ---
CT CERVICAL SPINE NONCONTRAST: DATE: 10/11/2020 HISTORY: cervical trauma: 89-year-old female status post fall FINDINGS: There are no jumped or perched facets. There is no evidence of acute fracture. The vertebral body hei ghts are maintained. There is no prevertebral soft tissue swelling. There are degenerative disc changes and facet osteoarthrosis. IMPRESSION: 1) Cervical spondylosis. 2) no evidence of acute fracture or acute traumatic subluxation.
--- NOTE | 2020-10-11 16:09 | CT ---
Exam: Facial bone CT without contrast COMPARISON: 11/06/2019 HISTORY: Patient fell face forward from wheelchair. Small laceration to the left eye. Nasal bone pain . FINDINGS: Age-appropriate atrophy in the visualized brain parenchyma Orbits: Bilateral ocular lens implants are appropriately located. Both globes are intact. Retrobulbar fat is preserved. Symmetric attenuation the optic nerves and ocular rectus muscles. Visualized aerodigestive tract is patent. No obvious masses. Midline fatty raphae of the tongue is pr eserved. Epiglottis has a normal caliber. Preepiglottic fat is preserved. Intact pterygoid plates and zygomatic arches Osseous margins of the sinuses and orbits are maintained Intact mandible and intact maxilla Old bilateral nasal bone fractures. No significant nasal soft tissue swelling. Bilateral ostiomeatal complexes are patent. Intact nasal septum. IMPRESSION: No acute maxillofacial fractures.
[2020-10-11] MEDS ORDERED: Bacitracin 1 PK ONE ×2 (16:59)
[2020-10-11] MEDS ORDERED: Boostrix 0.5 ML (Tdap) VIAL ONE (17:09)
== END 2020-10-11 17:08 ==
LOC: ERS 14:45
DX: S00.83XA Contusion of other part of head, initial encounter (principal); E11.9 Type 2 diabetes mellitus without complications; G20 Parkinson's disease; F02.80 Dementia in other diseases classified elsewhere, unspecified severity, without behavioral disturbance, psychotic disturbance, mood disturbance, and anxiety; I10 Essential (primary) hypertension; I48.0 Paroxysmal atrial fibrillation; K21.9 Gastro-esophageal reflux disease without esophagitis; E78.00 Pure hypercholesterolemia, unspecified; Z79.899 Other long term (current) drug therapy; Z79.84 Long term (current) use of oral hypoglycemic drugs; Z23 Encounter for immunization; W01.0XXA Fall on same level from slipping, tripping and stumbling without subsequent striking against object, initial encounter
CPT/HCPCS: 70450; 70486; 72125; 90471; 90715

== ENCOUNTER 2020-10-13 09:33 | Inpatient (IN) | payer MEDICARE, OTHER ==
[2020-10-13] MEDS ORDERED: cefTRIAXone\\ROCEPHIN 2 GM VIAL ONE (09:59)
[2020-10-13] MEDS ORDERED: Acetaminophen 325 MG TAB ONE (09:59)
[2020-10-13 10:11] LABS: #Lymphocytes 0.2 thou/uL (1.20-3.40); #Monocytes 1.1 thou/uL (0.11-0.59); #Neutrophils 10.7 thou/uL (1.40-6.50); %Basophils 0.1 % (0.0-1.0); %Eosinophils 0.2 % (0.0-10.0); %Lymphocytes 1.7 % (21.0-51.0); %Monocytes 9.4 % (0.0-10.0); %Neutrophils 88.5 % (42.0-75.0); Hemoglobin 12.3 g/dL (12.0-16.0); Mean Corpuscular HGB CONC 32.1 g/dL (32.0-36.0); Mean Corpuscular Hemoglobin 28.4 pg (27.0-31.0); Mean Corpuscular Volume 88.3 fL (78.0-98.0); Mean Platelet Volume 7.6 fL (7.4-10.4); Platelet Count 229 thou/uL (130-400); RBC Distribution Width 16.1 % (11.5-14.5); Red Blood Cell (RBC) Count 4.33 mill/uL (4.20-5.40); White Blood Cell (WBC) Count 12.1 thou/uL (4.8-10.8)
--- NOTE | 2020-10-13 10:28 | RAD ---
Exam: Chest one view HISTORY:Cough Comparison: 08/04/2020 FINDINGS: Cardiac silhouette:Cardiomegaly. Stable dual lead left-sided transvenous pacemaker. Aorta: Atherosclerotic Pulmonary vessels: Normal Costophrenic angles: Clear LUNGS: No masses or consolidation. Pneumothorax: None Osseous abnormalities: None IMPRESSION: 1. No acute cardiopulmonary process 2. Atherosclerosis.
[2020-10-13 10:39] LABS: ALT (SGPT) 105 U/L (8-55); AST (SGOT) 203 U/L (5-34); Albumin 3.8 g/dL (3.4-4.8); Alkaline Phosphatase 277 U/L (40-110); Anion Gap 19 mmol/L (10-20); BUN (Urea Nitrogen) 22 mg/dL (9.8-20.1); Bilirubin, Total 3.6 mg/dL (0.2-1.2); Calc. Creatinine Clearance 0 mL/min (70-130); Calcium 8.9 mg/dL (7.8-10.44); Carbon Dioxide 22 mmol/L (23-31); Chloride 101 mmol/L (98-107); Globulin 3.4 g/dL (2.4-3.5); Glucose 242 mg/dL (83-110); Lipase 4 U/L (8-78); Potassium 4.6 mmol/L (3.5-5.1); Protein, Total 7.2 g/dL (6.0-8.3); Sodium 137 mmol/L (136-145)
[2020-10-13] MEDS ORDERED: Vancomycin 1.5 GRAM/300 ML BAG 1.5 GM in Premix Bag 1 BAG IVPB SCH (10:45)
[2020-10-13 10:51] LABS: CKMB 1.6 ng/mL (0-6.6)
[2020-10-13 11:04] LABS: Bacteria/HPF None Seen HPF (None Seen); Bilirubin 1+ (Negative); Blood, Urine Negative (Negative); Clarity Clear (Clear); Glucose, Urine (Dipstick) 70 mg/dL (Negative); Ketone, Urine 20 mg/dL (Negative); Leukocyte Negative Leu/uL (Negative); Mucous/LPF 1+ LPF (<2+); Nitrite Negative (Negative); Protein, Urine (Dipstick) 70 mg/dL (Neg-Trace); Specific Gravity, Urine 1.022 (1.002-1.036); Squamous Epithelial 0-3 HPF (0-3); Urobilinogen 3 mg/dL (Less than 2); WBC/HPF 0-3 HPF (0-3)
--- NOTE | 2020-10-13 11:15 | CT ---
CT BRAIN WITHOUT CONTRAST: HISTORY:Altered mental status COMPARISON:10/11/2020 FINDINGS: There are foci of decreased attenuation in the periventricular white matter, consistent with chronic small vessel ischemic disease. Changes of cortical atrophy and old infarctions in the right ZINC FURNACE CHARGER and left MCA territories are again seen. No evidence of acute infarct, hemorrhage, midline shift or abnormal extra-axial fluid collections is seen. The ventricular size is stable and the basilar cisterns are patent. The bony calvarium is intact. The visualized paranasal sinuses and mastoid air cells are well aerated. IMPRESSION: Stable exam. No CT evidence of acute intracranial process.
--- NOTE | 2020-10-13 11:18 | CT ---
CT OF THE ABDOMEN AND PELVIS WITH IV CONTRAST INDICATION: 89-year-old female with abdominal pain COMPARISON: Noncontrast CT abdomen and pelvis dated April 11, 2018 and September 24, 2016 FINDINGS: ABDOMEN: Lung bases: There are new reticular nodular opacities within the lateral right middle lobe. There is bibasilar subsegmental atelectasis involving both lung bases. Liver: No focal lesion. Gallbladder: The gallbladder is distended. There is dilatation of the common bile duct. There is a 4 x 5 mm stone within the distal common bile duct best seen on image 60 of the coronal series and image 36 of the axial series. Pancreas: Atrophy of the pancreas is stable. Adrenal glands: Normal. Spleen: Normal. Kidneys and ureters: There is stable right renal cyst. There is a 9 mm stone involving inferior pole of the left kidney which is stable. The previously seen 3 mm stone is no longer demonstrated. No hydronephrosis is evident Vasculature: There are severe vascular calcifications seen involving the visualized vasculature. Lymph nodes:No lymphadenopathy. Free fluid in abdomen:No free fluid is evident. PELVIS: Small and large bowel: There is postsurgical change of partial colectomy. There is a diverting colost tonio in the left lower quadrant abdomen. There is an anterior midline abdominal wall hernia containing unobstructed loops of colon and small bowel. There are scattered colonic diverticulosis. S mall bowel is of normal caliber. Appendix:Normal. The appendix is contained within the anterior abdominal wall hernia. Bladder: Normal. Rectal and perirectal soft tissues:Normal. Reproductive structures: Surgically absent Free fluid in pelvis: No free fluid is evident. Lymphadenopathy pelvis: No lymphadenopathy is evident. Osseous structures: No acute osseous abnormality. No destructive osteolytic or osteoblastic lesion i s identified. There is scattered degenerative and osteoarthritic changes. Soft tissues:Normal. IMPRESSION: 1. 5 mm stone within the distal common bile duct causing dilation of the common bile duct and gallbla dder. GI consultation is recommended. 2. New reticular nodularity in the right middle lobe may reflect a focus of bronchiolitis. Recommend correlation with the clinical exam. Follow-up CT in 6-8 weeks after appropriate therapy is recommended to document clearance. 3. Large intra-abdominal wall hernia containing unobstructed loops of colon, small bowel and the appe ndix. 4. Left lower quadrant diverting colostomy. 5. Right renal cyst and left nephrolithiasis.
[2020-10-13] MEDS ORDERED: Dextrose 50% Abboject 50 ML SYRINGE SLOW IVP PRN (11:21)
[2020-10-13] MEDS ORDERED: Acetaminophen 325 MG TAB PO PRN (11:21)
[2020-10-13] MEDS ORDERED: Ondansetron PF 4 MG/2 ML Vial IVP PRN (11:21)
[2020-10-13] MEDS ORDERED: Guaifenesin DM 100-10/5 ML UDCUP PO PRN (11:21)
[2020-10-13] MEDS ORDERED: Dextrose 5% in Water 1,000 ML IV PRN (11:21)
[2020-10-13] MEDS ORDERED: HumaLOG 300 UNITS/3 ML VIAL SC PRN (11:21)
[2020-10-13] MEDS ORDERED: Aspirin 325 MG TAB ONE (11:25)
[2020-10-13 11:48] LABS: SARS-CoV-2 NAA Rapid Test Not Detected (NotDetected)
[2020-10-13 12:00] LABS: #Lymphocytes 0.3 thou/uL (1.20-3.40); #Monocytes 1.6 thou/uL (0.11-0.59); %Eosinophils 0.2 % (0.0-10.0); %Lymphocytes 2.9 % (21.0-51.0); %Neutrophils 83.9 % (42.0-75.0); Hemoglobin 12.3 g/dL (12.0-16.0); Mean Corpuscular HGB CONC 30.6 g/dL (32.0-36.0); Mean Corpuscular Hemoglobin 27.3 pg (27.0-31.0); Mean Corpuscular Volume 89.2 fL (78.0-98.0); Mean Platelet Volume 7.6 fL (7.4-10.4); Platelet Count 210 thou/uL (130-400); RBC Distribution Width 16.1 % (11.5-14.5); White Blood Cell (WBC) Count 11.9 thou/uL (4.8-10.8)
[2020-10-13 12:24] LABS: ALT (SGPT) 100 U/L (8-55); AST (SGOT) 181 U/L (5-34); Albumin 3.5 g/dL (3.4-4.8); Alkaline Phosphatase 262 U/L (40-110); Anion Gap 20 mmol/L (10-20); BUN (Urea Nitrogen) 22 mg/dL (9.8-20.1); Bilirubin, Total 3.4 mg/dL (0.2-1.2); Calc. Creatinine Clearance 0 mL/min (70-130); Calcium 8.4 mg/dL (7.8-10.44); Carbon Dioxide 19 mmol/L (23-31); Chloride 102 mmol/L (98-107); Globulin 3.5 g/dL (2.4-3.5); Glucose 225 mg/dL (83-110); Potassium 4.8 mmol/L (3.5-5.1); Sodium 136 mmol/L (136-145)
[2020-10-13 13:19] LABS: Lactic Acid 2.3 mmol/L (0.5-2.2)
[2020-10-13 13:20] LABS: Troponin I 0.043 ng/mL (< 0.028)
--- NOTE | 2020-10-13 13:47 | HP ---
REASON FOR ADMISSION: Choledocholithiasis with cholecystitis, acute metabolic encephalopathy, sepsis, elevated liver enzymes. HISTORY OF PRESENTING ILLNESS: Please note, majority of this history is obtained by talking to ER physician and prior records as the patient is not oriented and is almost completely obtunded at present. She barely opens her eyes to sternal rub. The patient was sent over from [place] at [facility] for increasing confusion and tachycardia. She also had a fall few days back. From then on, she has been going downhill per [facility] information. Other than the above information, there is nothing much I can get from either the patient or ER records. The patient has had elevated LFTs here with a total bilirubin of 3.6. CAT scan reveals choledocholithiasis with a 4-mm stone in the distal common bile duct and dilation of the gallbladder. She also has a large intraabdominal wall hernia with unobstructed loops of bowel. PAST MEDICAL AND SURGICAL HISTORY: Prior history of left hemicolectomy with colostomy; vitamin B12 deficiency; hypothyroidism; diabetes mellitus type 2; dementia; chronic atrial fibrillation, on Xarelto; dyslipidemia; right mastectomy; obstructive sleep apnea; obesity; gout; Parkinson disease; history of chronic umbilical hernia; glaucoma; and right ureteral stent for nephrolithiasis. CURRENT MEDICATIONS: The patient is on: 1. Atorvastatin 40 mg p.o. daily. 2. Buspirone 5 mg twice daily. 3. Carbamazepine 200 mg p.o. 3 times daily. 4. Donepezil 5 mg daily. 5. Glipizide extended release 2.5 mg daily. 6. Levothyroxine 88 mcg p.o. daily. 7. Metoprolol tartrate 50 mg twice daily. 8. Myrbetriq 25 mg daily. 9. Protonix 40 mg p.o. daily. 10. Timolol eye drops. 11. Trazodone 50 mg p.o. q.p.m. 12. Vitamin B12 of 1000 mcg p.o. daily. 13. Xarelto 15 mg p.o. q.p.m. 14. Ultram p.r.n. for pain. PERSONAL HISTORY: Does not abuse alcohol or drugs. The patient is a resident of [place] [facility]. FAMILY HISTORY: Father of heart disease. Mother , mother lived up to almost 101 years. CODE STATUS: Do not attempt to resuscitate. The patient carries [id number] DNR and this was confirmed with son, Mr. Jesús Harry. ALLERGIES: ALLERGIC TO HALDOL, NSAIDS, METOCLOPRAMIDE. REVIEW OF SYSTEMS: Cannot be obtained as the patient is obtunded at present. PHYSICAL EXAMINATION: GENERAL: The patient is an 89-year-old female, who is currently obtunded. VITAL SIGNS: Blood pressure 180/114, pulse 130 per minute, respiratory rate 20 per minute, temperature 99.6 degrees Fahrenheit, and saturating 98% on room air. NECK: Supple. No elevated JVD. EYES: Extraocular muscles intact. Pupils reacting to light. ORAL CAVITY: Mucous membranes are dry. No exudates or congestion. CARDIOVASCULAR SYSTEM: S1 and S2 heard. Irregular rhythm. RESPIRATORY SYSTEM: Air entry 1+ bilateral. Scattered rhonchi plus, rales plus in the infra-axillary area. ABDOMEN: The patient has a colostomy in the left lower quadrant. The patient winces to deep palpation in the right upper quadrant area. No rigidity or guarding. EXTREMITIES: Mild peripheral edema. No calf tenderness. VASCULAR SYSTEM: Peripheral pulses 1+ bilateral. No ischemic ulcers or gangrene. CENTRAL NERVOUS SYSTEM: The patient is currently obtunded. Cannot ascertain a full neurologic exam at present. PSYCHIATRIC: Cannot be examined as the patient is obtunded at present. LABORATORY DATA: White count of 12, H and H 12 and 38, platelet count is 229, MCV is 88 with 88% neutrophils. BUN is 22, creatinine 0.9, serum glucose 242, total bilirubin 3.6. Lactic acid 2.8. AST 203, ALT 105, alkaline phosphatase 277. BNP is 730. Lipase is 4. COVID-[address] PCR is not detected[address] CT brain without contrast done shows no acute intracranial process. CT of the abdomen and pelvis with contrast done shows 5 mm stone within the distal common bile duct causing dilation of the common bile duct and gallbladder. There is questionable right middle lobe nodularity seen with suspicion for bronchiolitis. Large intraabdominal wall hernia containing unobstructed loops of colon, small bowel, and appendix. EKG done shows atrial fibrillation. CLINICAL IMPRESSION AND PLAN: The patient will be admitted to telemetry for choledocholithiasis, possible acute cholecystitis, sepsis, acute metabolic encephalopathy, elevated LFTs. I have discussed her findings with Dr. Plunkett work station support specialist. It is unclear if the patient took her Xarelto last evening. In view of this, she will have ERCP done on Sunday morning. We will shortly consult Dr. Camara as well for possible cholecystectomy once the ERCP and the obstruction is resolved. She will be on meropenem 1 g q.8 hourly. Blood cultures have been obtained in the ER. She will be gently hydrated with normal saline at 100 mL/h. We will continue Tegretol, vitamin B12, Aricept, Pepcid, levothyroxine, Lopressor, and timolol eye drops. For now, she will be n.p.o. until she wakes up more, then at which time she will be switched over to full liquid diet. The patient's overall prognosis is guarded. I have given complete updates to Jesús Harry, patient's son and POA over the phone. Job ID: [id number] MTDD
[2020-10-13] MEDS ORDERED: metroNIDAZOLE 500 MG in Premix Bag 1 BAG IVPB SCH (14:00)
[2020-10-13] MEDS ORDERED: Iopamidol-370 76% 500 ML 1 ML ONE (14:20)
[2020-10-13] MEDS: Meropenem 1 GM in Sodium Chloride 0.9% 100 ML IVPB SCH ×2 (15:01→21:33)
[2020-10-13] MEDS: Sodium Chloride 0.9% 1,000 ML IV SCH ×2 (15:28→21:21)
--- NOTE | 2020-10-13 17:15 | CON ---
DATE OF CONSULTATION: HISTORY OF PRESENT ILLNESS: Lana Harry is an 89-year-old female with dementia, lives in the senior living at the [facility]. I have spoken with the patient's son, Jesús Harry, , who lives in [place]. The patient has good and bad days as far as memory. Sometimes she knows who her son is, sometimes not. Sometimes she knows the date, sometimes not. The patient supposedly had deterioration of her mental status, and presents to the hospital, evaluated, admitted to the Hospitalist Service and is on ER hold. The patient had confusion and tachycardia. She had a fall a few days ago. She has been having problems since that time. The patient admitted, had a dilated bile duct, elevated liver function test, bilirubin of 3.6, tender right upper abdomen. CAT scan suggesting choledocholithiasis and dilatation of the gallbladder. She has tenderness on exam in the right upper quadrant. 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 She has a history of diabetes mellitus type 2; dementia; chronic atrial fibrillation, on Xarelto. She has had a right mastectomy. Has history of sleep apnea, obesity, gout, Parkinson disease, history of umbilical hernia, right ureteral stent for nephrolithiasis. I have spoken with the patient's son. Although she is a DNR, he believes it is reasonable to proceed with ERCP, sphincterotomy, possible cholecystectomy. I am concerned about the patient's mental status changes and her tachycardia. She does not have hypotension. I am concerned about cholangitis. She has been on Xarelto and her last dose was sometime yesterday, probably last night. Treatment options include ERCP, sphincterotomy, and observation versus laparoscopic cholecystectomy under the same anesthesia. The patient's son prefers this option and I will schedule her for that tomorrow along with Dr. Ray' ERCP. Risks of infection, bleeding, reoperation, myocardial infarction, stroke, , open operation discussed. SOCIAL HISTORY: Tobacco, none. Drug use, none. Alcohol use, none. MEDICATIONS: 1. Atorvastatin. 2. Buspirone. 3. Carbamazepine. 4. Donepezil. 5. Glipizide. 6. Levothyroxine. 7. Metoprolol. 8. Myrbetriq. 9. Protonix. 10. Timolol eyedrops. 11. Trazodone. 12. Vitamin D. 13. Xarelto. 14. Ultram. ALLERGIES: HALDOL, NSAIDS, AND REGLAN. PHYSICAL EXAMINATION: GENERAL: The patient is confused, but does talk. VITAL SIGNS: Blood pressure 160/80, heart rate 120, respiratory rate 18 to 20. She is afebrile. LUNGS: Clear to auscultation. CARDIAC: Regular rate and rhythm without murmur, rub, or gallop. ABDOMEN: Soft. Tenderness in right upper quadrant. Midline incisional hernia. Colostomy left abdomen. EXTREMITIES: Unremarkable. SKIN: Friable. ASSESSMENT AND PLAN: Choledocholithiasis, cholecystitis. We would recommend approach as above. Job ID: [id number]
[2020-10-13 17:19] LABS: Troponin I 0.041 ng/mL (< 0.028)
[2020-10-13] MEDS: carBAMazepine 100 mg Chewable Tablet PO SCH ×2 (18:33→21:20)
[2020-10-13 18:43] VITALS: BMI 30.9
[2020-10-13] MEDS ORDERED: Cefepime 1 GM in Sodium Chloride 0.9% 100 ML IVPB SCH (21:00)
[2020-10-13] MEDS ORDERED: Vancomycin HCl 1 GM in Sodium Chloride 0.9% 250 ML 300 ML IVPB SCH (21:00)
[2020-10-13] MEDS: Metoprolol Tartrate 50 MG TAB PO SCH (21:20)
[2020-10-13] MEDS: Famotidine/PF 20 mg/2ml Vial SLOW IVP SCH (21:21)
[2020-10-13] MEDS: MEROPENEM 1 GM/50 ML 1 GM in Premix Bag 1 BAG IVPB SCH (21:30)
[2020-10-14 04:35] LABS: #Lymphocytes 0.5 thou/uL (1.20-3.40); #Monocytes 0.8 thou/uL (0.11-0.59); #Neutrophils 4.8 thou/uL (1.40-6.50); %Basophils 0.3 % (0.0-1.0); %Eosinophils 0.6 % (0.0-10.0); %Lymphocytes 7.5 % (21.0-51.0); %Monocytes 12.4 % (0.0-10.0); %Neutrophils 79.2 % (42.0-75.0); Hemoglobin 10.3 g/dL (12.0-16.0); Mean Corpuscular HGB CONC 31.8 g/dL (32.0-36.0); Mean Corpuscular Hemoglobin 28.8 pg (27.0-31.0); Mean Corpuscular Volume 90.4 fL (78.0-98.0); Mean Platelet Volume 8.9 fL (7.4-10.4); Platelet Count 190 thou/uL (130-400); RBC Distribution Width 16.2 % (11.5-14.5); Red Blood Cell (RBC) Count 3.59 mill/uL (4.20-5.40)
[2020-10-14 04:44] LABS: ALT (SGPT) 79 U/L (8-55); AST (SGOT) 94 U/L (5-34); Alkaline Phosphatase 200 U/L (40-110); Anion Gap 15 mmol/L (10-20); BUN (Urea Nitrogen) 17 mg/dL (9.8-20.1); Bilirubin, Total 2.8 mg/dL (0.2-1.2); Calc. Creatinine Clearance 68 mL/min (70-130); Carbon Dioxide 20 mmol/L (23-31); Chloride 108 mmol/L (98-107); Globulin 2.5 g/dL (2.4-3.5); Glucose 144 mg/dL (83-110); Potassium 3.7 mmol/L (3.5-5.1); Protein, Total 5.5 g/dL (6.0-8.3); Sodium 139 mmol/L (136-145)
[2020-10-14] MEDS: Metoprolol Tartrate 50 MG TAB PO SCH ×2 (06:07→21:36)
[2020-10-14] MEDS: Levothyroxine Sodium 88 MCG TAB PO SCH (06:07)
[2020-10-14] MEDS: MEROPENEM 1 GM/50 ML 1 GM in Premix Bag 1 BAG IVPB SCH ×2 (06:09→14:58)
[2020-10-14] MEDS ORDERED: Lidocaine 1% w/Epinephrine 1:100K 20 ML VIAL ONE (06:27)
[2020-10-14] MEDS ORDERED: Bupivacaine PF 0.5% 30 ML VIAL ONE (06:27)
[2020-10-14] MEDS ORDERED: Fentanyl 100 MCG/2 ML VIAL ONE ×3 (06:53→12:36)
[2020-10-14] MEDS ORDERED: Phenylephrine 10 MG/ML VIAL ONE (06:54)
--- NOTE | 2020-10-14 07:00 | CON ---
DATE OF CONSULTATION: 10/13/2020 REASON FOR CONSULT: Choledocholithiasis and possible cholangitis. HISTORY OF PRESENT ILLNESS: Ms. Harry is an 89-year-old female, who resides at [facility] for issues with dementia. History comes from talking with General Surgery, the patient's son, reviewing the patient's records. She has had increasing confusion, tachycardia today with some fever. Few days ago, she had a fall, was evaluated in the emergency room with no overt abnormalities found. In the emergency room, she was noted to have elevated LFTs and a bilirubin of 3.6, and a CAT scan revealed choledocholithiasis with 4 mm stone in the distal common bile duct, and dilation of the gallbladder. She has abdominal wall hernia as well, which has been chronic for her. PAST MEDICAL HISTORY: Left hemicolectomy with colostomy; vitamin B12 deficiency; hypothyroidism; diabetes type 2; dementia; chronic atrial fibrillation, on Xarelto, last given last night; dyslipidemia; right mastectomy; obstructive sleep apnea; obesity; gout; Parkinson's; history of chronic hernia; as well as glaucoma; and previous right ureteral stent for nephrolithiasis. MEDICATIONS: At the [facility] include: 1. Atorvastatin. 2. Buspirone. 3. Carbamazepine. 4. Donepezil. 5. Glipizide. 6. Levothyroxine. 7. Metoprolol. 8. Myrbetriq. 9. Protonix. 10. Timolol. 11. Trazodone. 12. Vitamin B12. 13. Xarelto. 14. Ultram. Present medications here: 1. Carbamazepine. 2. B12. 3. Tylenol p.r.n. 4. Aricept. 5. Pepcid. 6. Glucagon. 7. Humalog sliding scale. 8. Synthroid. 9. Meropenem. 10. Toprol. 11. Zofran. 12. Normal saline at 100 an hour. PAST SURGICAL HISTORY: EGD with Dr. 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 Followup EGD revealed complete removal of gastric polyp. Colon resection 2016 was for chronic diverticulitis. ALLERGIES: HALDOL, NSAIDS, AND METOCLOPRAMIDE. REVIEW OF SYSTEMS: Unable to be obtained. SOCIAL HISTORY: The patient is resident of [facility] presently. Her son Jesús is power of immigration attorney, and I have talked with him this evening. Negative for alcohol, drugs, tobacco. PHYSICAL EXAMINATION: VITAL SIGNS: Temperature here 98.4, pulse 60, blood pressure 141/94. GENERAL: She was sleeping while I walked into the room. She does respond to her name. She denies pain. She does not know where she is. Oriented her to the fact that she is in the hospital at [facility] and the date, which she is unaware of. She has no distress. NECK: Supple. No adenopathy. LUNGS: Clear. HEART: Regular without clicks, rubs, or murmurs. ABDOMEN: Soft. She is mildly tender in right upper quadrant. Has midline incisional hernia. Colostomy in left abdomen. There is no incarceration of hernias. IMAGING: CAT scan reviewed. She has a large ventral hernia. She has distended gallbladder and choledocholithiasis, atrophy of the pancreas. Focal area of bronchitis, right middle lobe. LABS: White count 12.1 on admission and 11.9 now, hemoglobin was 12.3, platelet count 210, 83% neutrophils. Glucose 140. Lactic acid 2, down from 2.3 at 12 today 2.8 at 11. AST was 181, ALT 100, alkaline phosphatase 262, bilirubin 3.4, albumin 3.5, protein 7. Troponin 0.043. Lipase 4. BNP 730. AST and ALT were 203 and 105 at 9 in the morning. Alkaline phosphatase 277. On 09/17, liver function tests were normal except for alkaline phosphatase of 124, was 121 on 08/04, and then October of last year was 101. COVID negative. B12 was 196 on 08/05, low. ASSESSMENT: 1. Choledocholithiasis with likely mild cholangitis with no overt sepsis. Good renal function and no hypotension or tachycardia. I had a long discussion with her son on the phone regarding ERCP. Risks, benefits, possible complications, she is willing to proceed. Dr. Camara had talked to him previously about cholecystectomy and informed the same to Surgery, which could be reasonable. It seems like she will tolerate this. 2. B12 deficiency. Still low in July. This needs to be checked. 3. She is on Xarelto which has been held since last night. She should be scheduled for procedure tomorrow. Planned ERCP with removal of common bile duct stone tomorrow. 4. Check B12. 5. Agree with broad-spectrum antibiotics. 6. Agree with plan for laparoscopic cholecystectomy. We will follow along with you. Job ID: [id number]
[2020-10-14] MEDS ORDERED: Iothalamate Meglumine 60% 50 ML VIAL FS ONE (07:12)
[2020-10-14] MEDS ORDERED: Ketamine 50 MG/ML (10ML VIAL) ONE (07:41)
[2020-10-14] MEDS ORDERED: Labetalol HCl 100 MG/20 ML VIAL SLOW IVP PRN (08:49)
[2020-10-14] MEDS ORDERED: hydrALAZINE 20 MG/ML VIAL SLOW IVP PRN (08:49)
[2020-10-14 09:52] LABS: INR-International Normal Ratio 1.2; PTT 27.5 sec (22.9-36.1); Prothrombin Time 15.8 sec (12.0-14.7)
[2020-10-14] MEDS ORDERED: Indomethacin 50 MG SUPP ONE (10:41)
--- NOTE | 2020-10-14 11:30 | OP ---
DATE OF PROCEDURE: 10/14/2020 PREOPERATIVE DIAGNOSES: Choledocholithiasis, cholangitis, cholecystitis, cholelithiasis, severe dementia, detention resident. POSTOPERATIVE DIAGNOSES: Choledocholithiasis, cholangitis, cholecystitis, cholelithiasis, severe dementia, detention resident. PROCEDURE PERFORMED: Laparoscopic video cholecystectomy. Note, Dr. Jesús Dean will perform ERCP afterwards. ANESTHESIA: General, local 0.5% Marcaine 30 mL mixed with 1% Xylocaine with epinephrine 20 mL. DESCRIPTION OF PROCEDURE: The patient was taken to the operating room, where under general anesthesia, abdomen was prepared with ChloraPrep and draped in routine fashion. The patient had a large incisional hernia from her previous left colectomy from obstructing stricture of the colon last year. Thus, right lateral subcostal midclavicular incision made. Pneumoperitoneum to 15 mmHg was obtained with a Veress needle, replaced with a 5 port. More right lateral subcostal incision made and a 5 port placed. Video laparoscope inserted and right subxiphoid incision made and 11 port placed. Right lower quadrant midclavicular incision was made at umbilical level, but right lateral, and a 5 port placed in an adhesion free area and video laparoscope moved to this port. There were adhesions of omentum to the gallbladder, taken down with hot cautery. Gallbladder was markedly distended. Fundus was grasped and retracted cephalad, it was slightly inflamed, wall thickened. Infundibulum grasped and retracted laterally. Cystic artery and duct dissected free. Critical view obtained. Cystic artery and duct doubly clipped proximally and divided. Gallbladder dissected free from edematous attachments of the liver with cautery, obtaining good hemostasis. The gallbladder and contents removed. Irrigant and pneumoperitoneum evacuated. Good hemostasis ensured with cautery. All skin incisions were approximated with interrupted subdermal 4-0 Monocryl, and [place] glue applied. Job ID: [id number]
[2020-10-14] MEDS ORDERED: Labetalol HCl 100 MG/20 ML VIAL ONE (11:34)
[2020-10-14] MEDS ORDERED: PROPOFOL 200 MG/20 ML VIAL ONE (11:34)
[2020-10-14] MEDS ORDERED: Dexamethasone 20 MG/5 ML VIAL ONE (11:34)
[2020-10-14] MEDS ORDERED: Ondansetron PF 4 MG/2 ML Vial ONE ×2 (11:34)
[2020-10-14] MEDS ORDERED: Glycopyrrolate 0.2 MG/ML 5 ML SYRINGE ONE (11:34)
[2020-10-14] MEDS ORDERED: Lidocaine 1% PF 5 ML VIAL ONE (11:34)
[2020-10-14] MEDS ORDERED: PHENYLEPHRINE-NS 100 MCG/ML 10 ML SYRINGE ONE ×2 (11:34)
--- NOTE | 2020-10-14 12:29 | RAD ---
EXAM: XR ERCP PROVIDED CLINICAL HISTORY: Choledocholithiasis COMPARISON: CT abdomen on 10/13/2020 FINDINGS/IMPRESSION: 11 intraoperative fluoroscopic images from ERCP are submitted for interpretation. Initial images demo nstrate guidewire in place overlying the expected location of the common duct. Injection of contrast demonstrates a filling defect in the distal common duct likely corresponding to the common d uct calculus seen on recent CT exam. The common duct and an left hepatic ducts do appear mildly dilated. Subsequent imaging demonstrates balloon catheter in place. No images demonstrating free spil l of contrast into the duodenum are provided. Surgical clips overlie the right upper quadrant. Correlation with intraoperative findings is recommended.
--- NOTE | 2020-10-14 12:35 | PDOC.HOSPP ---
- Subjective Encounter Date: 10/14/20 Encounter Time: 12:33 Subjective: Patient seen and examined. No new complaints. No overnight events, status post ERCP - Objective Vital Signs & Weight: Vital Signs (12 hours) Temp Pulse Resp BP Pulse Ox 10/14/20 06:00 97.6 F 84 18 176/84 H 96 10/14/20 05:00 98.7 F 105 H 12 100/55 L 96 10/14/20 01:19 97.9 F 86 18 171/80 H 96 Weight Weight 175 lb I&O: 10/13/20 10/14/20 10/15/20 06:59 06:59 06:59 Intake Total 1160 Output Total 350 Balance 810 Result Diagrams: 10/14/20 04:07 10/14/20 04:07 Additional Labs: Accuchecks 10/14/20 10/13/20 05:05 21:50 POC Glucose 147 H 140 H Radiology Reviewed by me: Yes EKG Reviewed by me: Yes Hospitalist ROS - Review of Systems ENT: denies: ear pain, ear discharge, nose pain, nose discharge, nose congestion, mouth pain, mouth swelling, throat pain, throat swelling, other Respiratory: denies: cough, dry, shortness of breath, hemoptysis, SOB with excertion, pleuritic pain, sputum, wheezing, other Cardiovascular: denies: chest pain, palpitations, orthopnea, paroxysmal noc. dyspnea, edema, light headedness, other Genitourinary: denies: dysuria, frequency, incontinence, hematuria, retention, other Musculoskeletal: denies: neck pain, shoulder pain, arm pain, back pain, hand pain, leg pain, foot pain, other - Medication Medications: Active Medications Generic Name Dose Route Start Last Admin Trade Name Freq PRN Reason Stop Dose Admin Carbamazepine 100 mg 10/13/20 15:00 10/13/20 21:20 Carbamazepine 100 Mg Chewable Tablet PO 100 mg TID ADAM Administration Famotidine 20 mg 10/13/20 21:00 10/13/20 21:21 Famotidine/Pf 20 Mg/2ml Vial SLOW IVP 20 mg Q12HR ADAM Administration Sodium Chloride 1,000 mls @ 100 mls/hr 10/13/20 11:21 10/13/20 21:21 Normal Saline 0.9% IV 1,000 mls .Q10H ADAM Administration Meropenem 1 gm/ Device 50 mls @ 100 mls/hr 10/13/20 22:00 10/14/20 06:09 IVPB 50 mls Q8HR ADAM Administration Levothyroxine Sodium 88 mcg 10/14/20 06:00 10/14/20 06:07 Levothyroxine Sodium 88 Mcg Tab PO 88 mcg 0600 ADAM Administration Metoprolol Tartrate 50 mg 10/13/20 21:00 10/14/20 06:07 Metoprolol Tartrate 50 Mg Tab PO 50 mg BID ADAM Administration - Exam General Appearance: NAD, awake alert Eye: PERRL, anicteric sclera ENT: normocephalic atraumatic, no oropharyngeal lesions Neck: symmetric, no JVD Heart: RRR, no murmur, no gallops, no rubs Respiratory: no wheezes, no rales, no ronchi Gastrointestinal: non-tender, non-distended, normal bowel sounds Extremities: no cyanosis, no clubbing, no edema Skin: normal turgor, no lesions Neurological: no new deficit Musculoskeletal: normal tone, normal strength Psychiatric: normal affect, normal behavior Hosp A/P (1) Physical deconditioning Code(s): R53.81 - OTHER MALAISE Status: Chronic (2) CKD (chronic kidney disease) stage 3, GFR 30-59 ml/min Code(s): N18.3 - CHRONIC KIDNEY DISEASE, STAGE 3 (MODERATE) * DO NOT USE * Status: Chronic (3) Chronic a-fib Code(s): I48.2 - CHRONIC ATRIAL FIBRILLATION * DO NOT USE * Status: Chronic (4) Colostomy in place Code(s): Z93.3 - COLOSTOMY STATUS Status: Chronic (5) Dementia Code(s): F03.90 - UNSPECIFIED DEMENTIA WITHOUT BEHAVIORAL DISTURBANCE Status: Chronic (6) Diabetes type 2, controlled Code(s): E11.9 - TYPE 2 DIABETES MELLITUS WITHOUT COMPLICATIONS Status: Ch ronic (7) Glaucoma Code(s): H40.9 - UNSPECIFIED GLAUCOMA Status: Chronic (8) HLD (hyperlipidemia) Code(s): E78.5 - HYPERLIPIDEMIA, UNSPECIFIED Status: Chronic (9) Hypertension Code(s): I10 - ESSENTIAL (PRIMARY) HYPERTENSION Status: Chronic (10) Hypothyroidism Code(s): E03.9 - HYPOTHYROIDISM, UNSPECIFIED Status: Chronic (11) Parkinson disease Code(s): G20 - PARKINSON'S DISEASE Status: Chronic - Plan old records reviewed/req Choledocholithiasis, cholangitis, cholecystitis, s/p laparoscopic cholecystectomy, will closely monitor after surgery today and ERCP Continue meropenem Continue IV fluid Medication reviewed and continue provide symptomatic and supportive care
[2020-10-14] MEDS ORDERED: hydrALAZINE 20 MG/ML VIAL ONE (13:02)
--- NOTE | 2020-10-14 13:04 | OP ---
DATE OF PROCEDURE: 10/14/2020 PROCEDURE PERFORMED: Endoscopic retrograde cholangiopancreatography with sphincterotomy and balloon stone extraction. PREOPERATIVE DIAGNOSIS: Choledocholithiasis. DESCRIPTION OF PROCEDURE: Informed consent was obtained. The patient underwent laparoscopic cholecystectomy. She was transferred to the endoscopy room and placed in the prone position. The duodenoscope was advanced easily to the second portion of the duodenum. The ampulla was identified and was very small. The common bile duct was selectively cannulated easily on first attempt with the wire alone. The catheter was advanced into the bile duct and cholangiogram was performed, which revealed a 12 mm common bile duct with a 1 cm stone and normal intrahepatic ducts. A complete sphincterotomy was performed with rapid drainage of bile, sludge, contrast, and small amount of pus. Still there was such a small sphincter that sphincterotomy could not be performed as large as I would like. The 12 mm balloon did pass through the sphincterotomy with slight resistance. The gallstone in fragments and sludge were swept from the bile duct with a 12 mm balloon. The duct was swept multiple more times due to the significant amount of sludge that was continued to be cleared from the duct, but by the end of the procedure, just clear yellow bile was passing from the duct freely and significant amount of air passed back up into the bile duct from the intestine. The bile duct was confirmed to be cleared by occlusion cholangiogram. The stone was a mixed yellow and brown pigment stone. The fluid was suctioned from the stomach. The stomach mucosa was inspected due to a history of a polyp in the fundus of the stomach. There was no residual polyp in the gastric mucosa. The air was suctioned from the stomach and the procedure was completed. IMPRESSION: 1. Cholangiogram showing a 12 mm common bile duct with a 1 cm distal stone and normal intrahepatic ducts. 2. Small ampulla with complete sphincterotomy performed and rapid drainage of bile, sludge, contrast, and small amount of pus. 3. Yellow and brown pigment stone were extracted with a 12 mm balloon. Occlusion cholangiogram confirmed the duct to be clear. 4. There was no residual polyp in the gastric mucosa. RECOMMENDATIONS: 1. Follow trend of the liver tests. 2. Advance diet as she tolerates. Job ID: [id number]
[2020-10-14] MEDS: Sodium Chloride 0.9% 1,000 ML IV SCH ×2 (14:57→21:35)
[2020-10-14] MEDS: carBAMazepine 100 mg Chewable Tablet PO SCH ×2 (21:30→21:36)
[2020-10-14] MEDS: Cyanocobalamin (Vitamin B-12) 1,000 MCG TAB PO SCH (21:30)
[2020-10-14] MEDS: Donepezil HCl 5 MG TAB PO SCH (21:31)
[2020-10-14] MEDS: Famotidine/PF 20 mg/2ml Vial SLOW IVP SCH ×2 (21:31→21:36)
[2020-10-14] MEDS: Timolol 0.5% Ophth Soln 5 ml Bottle L EYE SCH (21:32)
[2020-10-15] MEDS: MEROPENEM 1 GM/50 ML 1 GM in Premix Bag 1 BAG IVPB SCH ×4 (00:11→21:48)
[2020-10-15] MEDS: Sodium Chloride 0.9% 1,000 ML IV SCH ×2 (05:12→08:48)
[2020-10-15] MEDS: Levothyroxine Sodium 88 MCG TAB PO SCH (05:13)
[2020-10-15] MEDS: HumaLOG 300 UNITS/3 ML VIAL SC PRN (05:20)
[2020-10-15] MEDS: Timolol 0.5% Ophth Soln 5 ml Bottle L EYE SCH (08:49)
[2020-10-15] MEDS: Famotidine/PF 20 mg/2ml Vial SLOW IVP SCH ×3 (08:50→21:48)
[2020-10-15] MEDS: Cyanocobalamin (Vitamin B-12) 1,000 MCG TAB PO SCH ×2 (08:50→08:57)
[2020-10-15] MEDS: Donepezil HCl 5 MG TAB PO SCH ×2 (08:50→08:56)
[2020-10-15] MEDS: carBAMazepine 100 mg Chewable Tablet PO SCH ×4 (08:50→22:03)
[2020-10-15] MEDS: Metoprolol Tartrate 50 MG TAB PO SCH ×3 (08:50→22:03)
--- NOTE | 2020-10-15 10:43 | PDOC.HOSPP ---
- Subjective Encounter Date: 10/15/20 Encounter Time: 08:40 Subjective: Patient seen and examined bedside today, no overnight event, no new complaint, - Objective Vital Signs & Weight: Vital Signs (12 hours) Temp Pulse Pulse Resp BP BP Pulse Ox 10/15/20 08:33 100 184/81 H 10/15/20 03:42 97.9 F 96 14 151/87 H 100 Pulse Ox 10/15/20 08:33 98 10/15/20 03:42 Weight Weight 175 lb I&O: 10/14/20 10/15/20 10/16/20 06:59 06:59 06:59 Intake Total 1160 700 Output Total 350 Balance 810 700 Result Diagrams: 10/14/20 04:07 10/14/20 04:07 Additional Labs: Accuchecks 10/15/20 10/14/20 05:17 23:46 POC Glucose 166 H 178 H EKG Reviewed by me: Yes Hospitalist ROS - Review of Systems ROS unobtainable: due to mental status - Medication Medications: Active Medications Generic Name Dose Route Start Last Admin Trade Name Freq PRN Reason Stop Dose Admin Carbamazepine 100 mg 10/13/20 15:00 10/15/20 08:56 Carbamazepine 100 Mg Chewable Tablet PO Not Given TID ADAM Cyanocobalamin 1,000 mcg 10/14/20 09:00 10/15/20 08:57 Cyanocobalamin (Vitamin B-12) 1,000 Mcg Tab PO Not Given DAILY ADAM Donepezil HCl 5 mg 10/14/20 09:00 10/15/20 08:56 Donepezil Hcl 5 Mg Tab PO Not Given DAILY ADAM Famotidine 20 mg 10/13/20 21:00 10/15/20 08:56 Famotidine/Pf 20 Mg/2ml Vial SLOW IVP 20 mg Q12HR ADAM Administration Meropenem 1 gm/ Device 50 mls @ 100 mls/hr 10/13/20 22:00 10/15/20 05:13 IVPB 50 mls Q8HR ADAM Administration Insulin Human Lispro 0 units 10/13/20 11:21 10/15/20 05:20 Humalog 300 Units/3 Ml Vial SC 2 unit .MODERATE SLIDING SC PRN Administration Moderate Correctional Scale Levothyroxine Sodium 88 mcg 10/14/20 06:00 10/15/20 05:13 Levothyroxine Sodium 88 Mcg Tab PO 88 mcg 0600 ADAM Administration Metoprolol Tartrate 50 mg 10/13/20 21:00 10/15/20 08:56 Metoprolol Tartrate 50 Mg Tab PO Not Given BID ADAM Timolol Maleate 1 drop 10/14/20 09:00 10/15/20 08:49 Timolol 0.5% Ophth Soln 5 Ml Bottle L EYE Not Given DAILY ADAM - Exam General Appearance: NAD, awake alert Eye: PERRL, anicteric sclera ENT: normocephalic atraumatic, no oropharyngeal lesions Neck: symmetric, no JVD Heart: RRR, no murmur, no gallops Respiratory: no wheezes, no rales, no ronchi Gastrointestinal: soft, non-tender, non-distended, normal bowel sounds Gastrointestinal - other findings: Surgical site is clean and healthy, colostomy in place Extremities: no cyanosis, no clubbing Skin: normal turgor, no lesions Neurological: no focal deficits Musculoskeletal: normal tone, normal strength Psychiatric: normal affect Hosp A/P (1) Choledocholithiasis with acute cholecystitis with obstruction Code(s): K80.43 - CALCULUS OF BILE DUCT W ACUTE CHOLECYSTITIS WITH OBSTRUCTION Status: Acute Plan: S/p laparoscopic cholecystectomy and ERCP (2) Physical deconditioning Code(s): R53.81 - OTHER MALAISE Status: Chronic (3) CKD (chronic kidney disease) stage 3, GFR 30-59 ml/min Code(s): N18.3 - CHRONIC KIDNEY DISEASE, STAGE 3 (MODERATE) * DO NOT USE * Status: Chronic (4) Chronic a-fib Code(s): I48.2 - CHRONIC ATRIAL FIBRILLATION * DO NOT USE * Status: Chronic (5) Colostomy in place Code(s): Z93.3 - COLOSTOMY STATUS Status: Chronic (6) Dementia Code(s): F03.90 - UNSPECIFIED DEMENTIA WITHOUT BEHAVIORAL DISTURBANCE Status: Chronic (7) Diabetes type 2, controlled Code(s): E11.9 - TYPE 2 DIABETES MELLITUS WITHOUT COMPLICATIONS Status: Ch ronic (8) Glaucoma Code(s): H40.9 - UNSPECIFIED GLAUCOMA Status: Chronic (9) HLD (hyperlipidemia) Code(s): E78.5 - HYPERLIPIDEMIA, UNSPECIFIED Status: Chronic (10) Hypertension Code(s): I10 - ESSENTIAL (PRIMARY) HYPERTENSION Status: Chronic (11) Hypothyroidism Code(s): E03.9 - HYPOTHYROIDISM, UNSPECIFIED Status: Chronic (12) Parkinson disease Code(s): G20 - PARKINSON'S DISEASE Status: Chronic - Plan old records reviewed/req, continue antibiotics, PT/OT Discontinue telemetry floor and transfer to medical floor Discontinue IV fluid As needed blood pressure medication as patient is refusing p.o. medication Continue meropenem Tomorrow we will repeat labs Possible discharge over weekend. Start PT OT as tolerated
[2020-10-15 12:14] LABS: #Eosinphils 0.1 thou/uL (0.0-0.7); #Lymphocytes 0.5 thou/uL (1.20-3.40); #Monocytes 0.8 thou/uL (0.11-0.59); %Eosinophils 1.9 % (0.0-10.0); %Lymphocytes 6.1 % (21.0-51.0); %Monocytes 11.2 % (0.0-10.0); %Neutrophils 80.8 % (42.0-75.0); Hemoglobin 11.7 g/dL (12.0-16.0); Mean Corpuscular HGB CONC 31.8 g/dL (32.0-36.0); Mean Corpuscular Hemoglobin 28.5 pg (27.0-31.0); Mean Corpuscular Volume 89.8 fL (78.0-98.0); Mean Platelet Volume 8.1 fL (7.4-10.4); Platelet Count 179 thou/uL (130-400); RBC Distribution Width 16.2 % (11.5-14.5); Red Blood Cell (RBC) Count 4.11 mill/uL (4.20-5.40); White Blood Cell (WBC) Count 7.5 thou/uL (4.8-10.8)
[2020-10-15 12:51] LABS: ALT (SGPT) 68 U/L (8-55); AST (SGOT) 66 U/L (5-34); Alkaline Phosphatase 210 U/L (40-110); Anion Gap 18 mmol/L (10-20); BUN (Urea Nitrogen) 21 mg/dL (9.8-20.1); Bilirubin, Total 3.6 mg/dL (0.2-1.2); Calc. Creatinine Clearance 60 mL/min (70-130); Calcium 8.4 mg/dL (7.8-10.44); Carbon Dioxide 20 mmol/L (23-31); Chloride 107 mmol/L (98-107); Globulin 2.9 g/dL (2.4-3.5); Glucose 160 mg/dL (83-110); Lipase 5 U/L (8-78); Potassium 3.8 mmol/L (3.5-5.1); Protein, Total 5.9 g/dL (6.0-8.3); Sodium 141 mmol/L (136-145)
--- NOTE | 2020-10-15 16:11 | PRG ---
DATE OF SERVICE: 10/15/2020 SUBJECTIVE: Ms. Harry pulled out her IV today. She has not been cooperative with the nurses. When I talked to her this afternoon, she is awake and alert and states that she is willing to try more of her diet. She was given some Jell-O, which she did hold in her mouth for quite a while before attempting to swallow. OBJECTIVE: VITAL SIGNS: Temperature 98.1, pulse 89, blood pressure 158/87. GENERAL: She is in no acute distress. Alert and awake. LUNGS: Clear to auscultation bilaterally. HEART: Regular rate and rhythm without murmur. ABDOMEN: Soft, nontender, nondistended. Bowel sounds are present. EXTREMITIES: No lower extremity edema. LABORATORY DATA: White blood cell count 7.5, hemoglobin 11.7, platelets 179. Bilirubin 3.6, AST 66, ALT 68, alkaline phosphatase 210, creatinine 0.81, albumin 3.0. IMPRESSION: 1. Choledocholithiasis, status post endoscopic retrograde cholangiopancreatography and balloon stone extraction and cholecystectomy. 2. Mild cholangitis with some pus in the bile duct, which now be cleared. She is on meropenem currently. 3. Altered mental status with baseline dementia. She is slow to start eating again and will continue to encourage oral intake. However, given the slow oral intake, she will likely need to have her IV restarted today and nursing is working on that. RECOMMENDATIONS: 1. Follow trend of her liver tests. 2. She can discharge once she is eating and her liver tests are trending down from a GI standpoint. Job ID: [id number]
--- NOTE | 2020-10-15 18:08 | PRG ---
DATE OF SERVICE: 10/15/2020 SUBJECTIVE: The patient is postop day one lap choly. Still remains very combative. She pulled out her IV. OBJECTIVE: VITAL SIGNS: Temperature is 98, pulse 100, blood pressure 160/94. GENERAL: She is confused, which is normal for her. No jaundice. LUNGS: Clear. HEART: Regular rate and rhythm. ABDOMEN: Soft. Incisions are healing well. Her white count is 7.5, H and H 11 and 36, platelet count 179, T bilirubin is 3.6. ASSESSMENT: Status post laparoscopic cholecystectomy and ERCP with stone extraction. PLAN: Continue supportive care. Job ID: [id number]
[2020-10-15] MEDS ORDERED: Ziprasidone 20 MG VIAL IM SCH (18:45)
[2020-10-15] MEDS: Labetalol HCl 100 MG/20 ML VIAL SLOW IVP PRN (23:35)
[2020-10-16] MEDS ORDERED: Morphine 2 MG/ML VIAL SLOW IVP SCH (00:15)
[2020-10-16] MEDS: Levothyroxine Sodium 88 MCG TAB PO SCH (05:49)
[2020-10-16] MEDS: MEROPENEM 1 GM/50 ML 1 GM in Premix Bag 1 BAG IVPB SCH ×3 (05:49→22:12)
--- NOTE | 2020-10-16 09:32 | PDOC.HOSPP ---
- Subjective Encounter Date: 10/16/20 Encounter Time: 09:45 Subjective: Ms. Harry was lying in bed at the time of the visit and was obtunded. She had a sitter in the room who reported that Ms. Harry hadn't eaten breakfast because she was not awake enough. Will try again at lunch. - Objective Vital Signs & Weight: Vital Signs (12 hours) Temp Pulse Resp BP BP Pulse Ox 10/16/20 04:00 97.3 F L 106 H 22 H 129/97 H 99 10/15/20 23:35 116 H 177/91 H 10/15/20 23:10 115 H 20 177/91 H 100 Weight Weight 175 lb I&O: 10/15/20 10/16/20 10/17/20 06:59 06:59 06:59 Intake Total 700 270 Balance 700 270 Result Diagrams: 10/15/20 11:58 10/15/20 11:58 Additional Labs: Accuchecks 10/16/20 10/15/20 10/15/20 05:32 23:58 18:19 POC Glucose 123 H 124 H 134 H Hospitalist ROS - Review of Systems ROS unobtainable: due to mental status - Medication Medications: Active Medications Generic Name Dose Route Start Last Admin Trade Name Freq PRN Reason Stop Dose Admin Carbamazepine 100 mg 10/13/20 15:00 10/15/20 22:03 Carbamazepine 100 Mg Chewable Tablet PO Not Given TID ADAM Cyanocobalamin 1,000 mcg 10/14/20 09:00 10/15/20 08:57 Cyanocobalamin (Vitamin B-12) 1,000 Mcg Tab PO Not Given DAILY ADAM Donepezil HCl 5 mg 10/14/20 09:00 10/15/20 08:56 Donepezil Hcl 5 Mg Tab PO Not Given DAILY ADAM Famotidine 20 mg 10/13/20 21:00 10/15/20 21:48 Famotidine/Pf 20 Mg/2ml Vial SLOW IVP 20 mg Q12HR ADAM Administration Meropenem 1 gm/ Device 50 mls @ 100 mls/hr 10/13/20 22:00 10/16/20 05:49 IVPB 50 mls Q8HR ADAM Administration Insulin Human Lispro 0 units 10/13/20 11:21 10/15/20 05:20 Humalog 300 Units/3 Ml Vial SC 2 unit .MODERATE SLIDING SC PRN Administration Moderate Correctional Scale Labetalol HCl 20 mg 10/15/20 10:41 10/15/20 23:35 Labetalol Hcl 100 Mg/20 Ml Vial SLOW IVP 20 mg Q4H PRN Administration SBP GREATER THAN 160 Levothyroxine Sodium 88 mcg 10/14/20 06:00 10/16/20 05:49 Levothyroxine Sodium 88 Mcg Tab PO Not Given 0600 ADAM Metoprolol Tartrate 50 mg 10/13/20 21:00 10/15/20 22:03 Metoprolol Tartrate 50 Mg Tab PO Not Given BID ADAM Timolol Maleate 1 drop 10/14/20 09:00 10/15/20 08:49 Timolol 0.5% Ophth Soln 5 Ml Bottle L EYE Not Given DAILY ADAM - Exam General - other findings: obtunded ENT: normocephalic atraumatic Neck: supple Heart: no murmur, normal peripheral pulses, irregular Respiratory: CTAB, no wheezes, no rales Gastrointestinal: soft, non-distended, normal bowel sounds, no palpable masses Gastrointestinal - other findings: laparoscopy incisions healing well Skin - other findings: mild jaundice Psychiatric: not oriented Hosp A/P - Plan Choledocholithiasis with cholecystitis and cholangitis0 - s/p cholecystectomy and ERCP - continue meropenem for cholangitis - Liver enzymes trending down for AST, ALT, Total bilirubin, and Alk phos Altered mental status - hx of dementia - continue Donepezil Atrial fibrilation, chronic - not currently being anticoagulated DM 2, controlled - continue Humalog Glaucoma - Continue Timolol HTN -Scheduled IV Lopressor as patient is not taking any p.o. Hypothyroidism - Continue Levothyroxine Physical deconditioning - PT/OT --when she is more able to cooperate. N.p.o. status until patient is more alert -Speech evaluation at that time. Code status: DNR, son is POA
[2020-10-16] MEDS: Famotidine/PF 20 mg/2ml Vial SLOW IVP SCH ×2 (09:45→20:49)
[2020-10-16] MEDS: carBAMazepine 100 mg Chewable Tablet PO SCH ×3 (09:45→20:48)
[2020-10-16] MEDS: Cyanocobalamin (Vitamin B-12) 1,000 MCG TAB PO SCH (09:45)
[2020-10-16] MEDS: Timolol 0.5% Ophth Soln 5 ml Bottle L EYE SCH (09:45)
[2020-10-16] MEDS: Donepezil HCl 5 MG TAB PO SCH (09:46)
[2020-10-16] MEDS: Metoprolol Tartrate 50 MG TAB PO SCH (09:47)
--- NOTE | 2020-10-16 11:28 | PRG ---
DATE OF SERVICE: 10/16/2020 SUBJECTIVE: Patient was reportedly agitated last night and received a sedative to help her sleep. This morning, she is just sleeping and not verbally interactive. PHYSICAL EXAMINATION: VITAL SIGNS: Temperature 97.3, pulse 106, blood pressure 183/88. GENERAL: She is in no acute distress. She is obtunded. LUNGS: Clear to auscultation bilaterally. HEART: Regular rate and rhythm without murmur. ABDOMEN: Soft, nontender, and nondistended. Bowel sounds are present. EXTREMITIES: No lower extremity edema. LABORATORY DATA: White blood cell count 7.5, hemoglobin 11.7, platelets 179. Bilirubin and LFTs are not back yet today. IMPRESSION: 1. Choledocholithiasis status post ERCP and stone extraction and cholecystectomy. 2. Delirium encephalopathy with underlying dementia and post anesthesia setting. RECOMMENDATIONS: 1. When she is awake enough to eat and she is taking an adequate oral intake, then she could likely discharge. 2. Repeat her liver tests in the morning to verify they were trending down. Job ID: [id number]
--- NOTE | 2020-10-16 11:38 | PRG ---
DATE OF SERVICE: 10/16/2020 SUBJECTIVE: The patient is status post laparoscopic cholecystectomy. She remains very confused and combative. When she is sedate, she is doing fine. Her baseline is unknown. The nurses think that she may be this way because she came from a [facility]. OBJECTIVE: VITAL SIGNS: On examination, temperature 97.3, pulse 106, blood pressure 129/87. GENERAL: She is sedated at this time. ABDOMEN: Soft. The incision is healing well. There is no evidence of infection. ASSESSMENT: Status post laparoscopic cholecystectomy, very confused. PLAN: We will repeat her LFTs. Job ID: [id number]
[2020-10-16 11:54] LABS: ALT (SGPT) 43 U/L (8-55); AST (SGOT) 39 U/L (5-34); Albumin 2.6 g/dL (3.4-4.8); Alkaline Phosphatase 167 U/L (40-110); Bilirubin, Direct 0.8 mg/dL (0.1-0.3); Bilirubin, Total 1.8 mg/dL (0.2-1.2); Protein, Total 5.6 g/dL (6.0-8.3)
[2020-10-16] MEDS: Metoprolol Tartrate 5 MG/5 ML VIAL IVP SCH ×2 (14:29→22:12)
[2020-10-16] MEDS ORDERED: Donepezil HCl 5 MG TAB PO SCH (15:15)
--- NOTE | 2020-10-16 15:19 | EKG ---
Test Reason : Blood Pressure : / mmHG Vent. Rate : 143 BPM Atrial Rate : 150 BPM P-R Int : 000 ms QRS Dur : 132 ms QT Int : 320 ms P-R-T Axes : 000 072 -31 degrees QTc Int : 493 ms Atrial fibrillation with rapid ventricular response Right bundle branch block T wave abnormality, consider inferior ischemia Abnormal ECG Confirmed by JEAN CARLOS FUENTES ([id number]), health editor LINDEN NAYAK ([id number]) on 10/16/2020 3:19:14 PM Referred By: Confirmed By:JEAN CARLOS Jessica
[2020-10-16] MEDS ORDERED: Haloperidol Lactate 5 MG/ML VIAL SLOW IVP SCH (18:45)
[2020-10-16] MEDS: Labetalol HCl 100 MG/20 ML VIAL SLOW IVP PRN (20:52)
[2020-10-16] MEDS: Lorazepam 2 MG/ML VIAL SLOW IVP PRN (22:35)
[2020-10-17] MEDS: Metoprolol Tartrate 5 MG/5 ML VIAL IVP SCH ×4 (04:28→20:45)
[2020-10-17] MEDS: Levothyroxine Sodium 88 MCG TAB PO SCH (06:24)
[2020-10-17] MEDS: MEROPENEM 1 GM/50 ML 1 GM in Premix Bag 1 BAG IVPB SCH ×3 (06:25→21:16)
[2020-10-17 06:48] LABS: #Eosinphils 0.1 thou/uL (0.0-0.7); #Lymphocytes 0.6 thou/uL (1.20-3.40); #Neutrophils 6.8 thou/uL (1.40-6.50); %Basophils 0.1 % (0.0-1.0); %Eosinophils 0.8 % (0.0-10.0); %Lymphocytes 6.9 % (21.0-51.0); %Monocytes 11.9 % (0.0-10.0); %Neutrophils 80.3 % (42.0-75.0); Hemoglobin 11.9 g/dL (12.0-16.0); Mean Corpuscular HGB CONC 31.5 g/dL (32.0-36.0); Mean Corpuscular Hemoglobin 28.8 pg (27.0-31.0); Mean Corpuscular Volume 91.5 fL (78.0-98.0); Mean Platelet Volume 9.2 fL (7.4-10.4); Platelet Count 190 thou/uL (130-400); Red Blood Cell (RBC) Count 4.14 mill/uL (4.20-5.40); White Blood Cell (WBC) Count 8.5 thou/uL (4.8-10.8)
[2020-10-17 07:11] LABS: Albumin 2.6 g/dL (3.4-4.8)
[2020-10-17 07:12] LABS: Chloride 109 mmol/L (98-107); Potassium 3.6 mmol/L (3.5-5.1); Sodium 141 mmol/L (136-145)
[2020-10-17 07:13] LABS: Calcium 8.3 mg/dL (7.8-10.44); Glucose 132 mg/dL (83-110)
[2020-10-17 07:14] LABS: Globulin 3.3 g/dL (2.4-3.5); Protein, Total 5.9 g/dL (6.0-8.3)
[2020-10-17 07:15] LABS: Carbon Dioxide 17 mmol/L (23-31)
[2020-10-17 07:16] LABS: Alkaline Phosphatase 171 U/L (40-110); Bilirubin, Total 1.7 mg/dL (0.2-1.2)
[2020-10-17 07:17] LABS: Calc. Creatinine Clearance 73 mL/min (70-130)
[2020-10-17 07:18] LABS: BUN (Urea Nitrogen) 16 mg/dL (9.8-20.1)
[2020-10-17 07:19] LABS: AST (SGOT) 29 U/L (5-34)
[2020-10-17 07:20] LABS: ALT (SGPT) 37 U/L (8-55)
[2020-10-17 07:29] LABS: Anion Gap 19 mmol/L (10-20)
[2020-10-17] MEDS ORDERED: Amlodipine 10 MG TAB PO SCH (09:00)
[2020-10-17] MEDS: Donepezil HCl 5 MG TAB PO SCH (10:02)
[2020-10-17] MEDS: Amlodipine 10 MG TAB PO SCH (10:02)
[2020-10-17] MEDS: Cyanocobalamin (Vitamin B-12) 1,000 MCG TAB PO SCH (10:02)
[2020-10-17] MEDS: carBAMazepine 100 mg Chewable Tablet PO SCH ×3 (10:02→21:09)
[2020-10-17] MEDS: Famotidine/PF 20 mg/2ml Vial SLOW IVP SCH ×2 (10:20→20:45)
[2020-10-17] MEDS: Timolol 0.5% Ophth Soln 5 ml Bottle L EYE SCH (10:21)
--- NOTE | 2020-10-17 11:08 | PDOC.HOSPP ---
- Subjective Encounter Date: 10/17/20 Encounter Time: 09:30 Subjective: Patient is quite disoriented. The nursing staff is putting soft restraints on her. We probably need a sitter as well. Orders in place. - Objective Vital Signs & Weight: Vital Signs (12 hours) Temp Pulse Resp BP BP Pulse Ox 10/17/20 10:21 122 H 142/92 H 10/17/20 10:02 122 H 10/17/20 08:00 96.5 F L 122 H 20 158/95 H 95 10/17/20 04:00 97.2 F L 105 H 21 H 166/85 H 98 10/17/20 01:19 89 10/17/20 00:00 106 H 191/108 H Weight Weight 175 lb I&O: 10/16/20 10/17/20 10/18/20 06:59 06:59 06:59 Intake Total 270 160 Balance 270 160 Result Diagrams: 10/17/20 06:40 10/17/20 06:40 Additional Labs: Accuchecks 10/17/20 10/16/20 10/16/20 05:34 23:46 17:01 POC Glucose 130 H 125 H 171 H 10/16/20 12:12 POC Glucose 91 Hospitalist ROS - Medication Medications: Active Medications Generic Name Dose Route Start Last Admin Trade Name Freq PRN Reason Stop Dose Admin Acetaminophen 650 mg 10/13/20 11:21 10/16/20 14:48 Acetaminophen 325 Mg Tab PO 650 mg Q4H PRN Administration Headache/Fever/Mild Pain (1-3) Amlodipine Besylate 10 mg 10/17/20 09:00 10/17/20 10:02 Amlodipine 10 Mg Tab PO 10 mg DAILY ADAM Administration Carbamazepine 100 mg 10/13/20 15:00 10/17/20 10:02 Carbamazepine 100 Mg Chewable Tablet PO 100 mg TID ADAM Administration Cyanocobalamin 1,000 mcg 10/14/20 09:00 10/17/20 10:02 Cyanocobalamin (Vitamin B-12) 1,000 Mcg Tab PO 1,000 mcg DAILY ADAM Administration Donepezil HCl 5 mg 10/17/20 09:00 10/17/20 10:02 Donepezil Hcl 5 Mg Tab PO 5 mg DAILY ADAM Administration Famotidine 20 mg 10/13/20 21:00 10/17/20 10:20 Famotidine/Pf 20 Mg/2ml Vial SLOW IVP 20 mg Q12HR ADAM Administration Hydralazine HCl 10 mg 10/14/20 08:49 10/17/20 01:19 Hydralazine 20 Mg/Ml Vial SLOW IVP 10 mg Q4H PRN Administration SBP GREATER THAN 160 Meropenem 1 gm/ Device 50 mls @ 100 mls/hr 10/13/20 22:00 10/17/20 06:25 IVPB 50 mls Q8HR ADAM Administration Insulin Human Lispro 0 units 10/13/20 11:21 10/15/20 05:20 Humalog 300 Units/3 Ml Vial SC 2 unit .MODERATE SLIDING SC PRN Administration Moderate Correctional Scale Labetalol HCl 20 mg 10/15/20 10:41 10/15/20 23:35 Labetalol Hcl 100 Mg/20 Ml Vial SLOW IVP 20 mg Q4H PRN Administration SBP GREATER THAN 160 Levothyroxine Sodium 88 mcg 10/14/20 06:00 10/17/20 06:24 Levothyroxine Sodium 88 Mcg Tab PO Not Given 0600 ADAM Lorazepam 1 mg 10/16/20 18:37 10/16/20 22:35 Lorazepam 2 Mg/Ml Vial SLOW IVP 1 mg Q8H PRN Administration Agitation Metoprolol Tartrate 5 mg 10/16/20 15:00 10/17/20 10:20 Metoprolol Tartrate 5 Mg/5 Ml Vial IVP 5 mg 0300,0900,1500,2100 ADAM Administration Sodium Chloride 10 ml 10/13/20 20:58 10/16/20 14:14 Flush - Normal Saline 10 Ml Syringe IVF 10 ml PRN PRN Administration Saline Flush Timolol Maleate 1 drop 10/14/20 09:00 10/17/20 10:21 Timolol 0.5% Ophth Soln 5 Ml Bottle L EYE 1 drop DAILY ADAM Administration - Exam General Appearance: ill appearing General - other findings: Confused Eye: PERRL ENT: normocephalic atraumatic Neck: supple Heart: RRR Respiratory: normal chest expansion Neurological: no focal deficits Psychiatric: not oriented Hosp A/P - Plan Choledocholithiasis with cholecystitis and cholangitis0 - s/p cholecystectomy and ERCP - continue meropenem for cholangitis - Liver enzymes trending down for AST, ALT, Total bilirubin, and Alk phos Altered mental status - hx of dementia - continue Donepezil Atrial fibrilation, chronic - not currently being anticoagulated DM 2, controlled - continue Humalog Glaucoma - Continue Timolol HTN -Scheduled IV Lopressor as patient is not taking any p.o. Hypothyroidism - Continue Levothyroxine Physical deconditioning - PT/OT --when she is more able to cooperate. 6th Ongoing altered mentation/metabolic encephalopathy N.p.o. status until patient is more alert -Speech evaluation at that time. -Mostly supportive measures including soft restraints and Ativan as needed -LFTs are trending down however alkaline phosphatase is still on the high end of 171 and total bilirubin is trending down today at 1.7. A.m. labs ordered. Code status: DNR, son is POA
[2020-10-17] MEDS: HumaLOG 300 UNITS/3 ML VIAL SC PRN (12:41)
--- NOTE | 2020-10-17 16:22 | PRG ---
DATE OF SERVICE: 10/17/2020 SUBJECTIVE: The patient is status post lap shauna with multiple medical problems. Nurse reports that she is a little more awake today. They have been able to get her some food by mouth. On exam, she is still pretty confused. I mean she is awake, but really does not understand questions. Temperature is 96.3. Her pulse is 111, in atrial fibrillation. Her blood pressure 160/90. Her abdomen is soft, really noticed tenderness. The lower port site was open. The nurses have been dressing, has a little bit of drainage from it. LABORATORY DATA: White count is 8.5, H and H 11 and 37, platelet count 190. Electrolytes are fine. T-bilirubin is still up a little bit at 1.7. ASSESSMENT: Stable. PLAN: Continue medical therapy. Job ID: [id number]
--- NOTE | 2020-10-17 16:44 | PRG ---
DATE OF SERVICE: 10/17/2020 SUBJECTIVE: Ms. Harry has remained sleepy and eating very little. When I went in the room with her, she has her sitter at the bedside to give her a bath. The patient then did take applesauce and , which she stated that she liked. OBJECTIVE: VITAL SIGNS: Temperature is 96.3, pulse is 111, blood pressure 162/91 to 138/78. GENERAL: She is in no acute distress. She does arouse, but has some underlying confusion. LUNGS: Clear to auscultation bilaterally. HEART: Tachycardic. S1 and S2. ABDOMEN: Soft, nontender, and nondistended. Bowel sounds are present. EXTREMITIES: No lower extremity edema. LABORATORY DATA: White blood cell count 8.5, hemoglobin 11.9, platelets 190. Bilirubin 1.7, AST 29, ALT 37, alkaline phosphatase 171, creatinine 0.69. IMPRESSION: 1. Choledocholithiasis, status post ERCP and balloon stone extraction. Her liver tests are trending down. She is status post cholecystectomy as well. 2. Dementia and underlying deconditioning. RECOMMENDATIONS: 1. Continue to encourage oral intake. 2. Continue to follow trend of her liver tests. Job ID: [id number]
[2020-10-18] MEDS: Metoprolol Tartrate 5 MG/5 ML VIAL IVP SCH ×2 (01:56→09:03)
[2020-10-18] MEDS: Lorazepam 2 MG/ML VIAL SLOW IVP PRN (04:16)
[2020-10-18 05:24] LABS: ALT (SGPT) 28 U/L (8-55); AST (SGOT) 22 U/L (5-34); Albumin 2.8 g/dL (3.4-4.8); Alkaline Phosphatase 163 U/L (40-110); Anion Gap 15 mmol/L (10-20); BUN (Urea Nitrogen) 17 mg/dL (9.8-20.1); Bilirubin, Direct 0.9 mg/dL (0.1-0.3); Bilirubin, Total 1.6 mg/dL (0.2-1.2); Calc. Creatinine Clearance 69 mL/min (70-130); Calcium 8.2 mg/dL (7.8-10.44); Carbon Dioxide 24 mmol/L (23-31); Chloride 105 mmol/L (98-107); Glucose 137 mg/dL (83-110); Protein, Total 5.8 g/dL (6.0-8.3); Sodium 140 mmol/L (136-145)
[2020-10-18] MEDS: MEROPENEM 1 GM/50 ML 1 GM in Premix Bag 1 BAG IVPB SCH ×3 (05:58→22:43)
[2020-10-18] MEDS: Levothyroxine Sodium 88 MCG TAB PO SCH (06:05)
[2020-10-18 07:36] LABS: #Eosinphils 0.1 thou/uL (0.0-0.7); #Lymphocytes 0.7 thou/uL (1.20-3.40); #Monocytes 0.9 thou/uL (0.11-0.59); #Neutrophils 5.7 thou/uL (1.40-6.50); %Basophils 0.6 % (0.0-1.0); %Eosinophils 0.8 % (0.0-10.0); %Lymphocytes 9.7 % (21.0-51.0); %Monocytes 11.5 % (0.0-10.0); %Neutrophils 77.4 % (42.0-75.0); Hemoglobin 11.5 g/dL (12.0-16.0); Mean Corpuscular HGB CONC 31.4 g/dL (32.0-36.0); Mean Corpuscular Hemoglobin 27.8 pg (27.0-31.0); Mean Corpuscular Volume 88.3 fL (78.0-98.0); Mean Platelet Volume 7.9 fL (7.4-10.4); Platelet Count 219 thou/uL (130-400); RBC Distribution Width 15.8 % (11.5-14.5); Red Blood Cell (RBC) Count 4.15 mill/uL (4.20-5.40); White Blood Cell (WBC) Count 7.4 thou/uL (4.8-10.8)
[2020-10-18] MEDS: carBAMazepine 100 mg Chewable Tablet PO SCH ×3 (09:02→22:02)
[2020-10-18] MEDS: Donepezil HCl 5 MG TAB PO SCH (09:02)
[2020-10-18] MEDS: Cyanocobalamin (Vitamin B-12) 1,000 MCG TAB PO SCH (09:02)
[2020-10-18] MEDS: Amlodipine 10 MG TAB PO SCH (09:02)
[2020-10-18] MEDS: Famotidine/PF 20 mg/2ml Vial SLOW IVP SCH (09:02)
[2020-10-18] MEDS: Timolol 0.5% Ophth Soln 5 ml Bottle L EYE SCH (09:03)
--- NOTE | 2020-10-18 10:28 | PDOC.HOSPP ---
- Subjective Encounter Date: 10/18/20 (f/u choledocholithiasis) Encounter Time: 10:25 Subjective: 89 y;/o female with dementia admitted for cholangitis, choledocholithiasis and cholecystectomy. Post-operative delirium/encephalopathy persists. Pt hollering in room - responds when asked if she is having pain. Unknown last bm. Placed in restraints for agitation yesterday/overnight. - Objective Vital Signs & Weight: Vital Signs (12 hours) Temp Pulse Resp BP Pulse Ox 10/18/20 07:41 97.2 F L 90 20 182/88 H 98 10/18/20 03:40 98.3 F 88 20 139/81 96 10/17/20 23:47 84 20 149/90 H Weight Weight 175 lb I&O: 10/17/20 10/18/20 10/19/20 06:59 06:59 06:59 Intake Total 160 700 Output Total 210 Balance 160 490 Result Diagrams: 10/18/20 07:12 10/18/20 04:09 Additional Labs: Accuchecks 10/18/20 10/17/20 10/17/20 05:47 23:41 20:12 POC Glucose 129 H 136 H 148 H 10/17/20 10/17/20 10/17/20 19:06 12:26 11:51 POC Glucose 127 H 161 H 161 H EKG Reviewed by me: Yes (tele - a fib 90's) Hospitalist ROS - Medication Medications: Active Medications Generic Name Dose Route Start Last Admin Trade Name Freq PRN Reason Stop Dose Admin Acetaminophen 650 mg 10/13/20 11:21 10/16/20 14:48 Acetaminophen 325 Mg Tab PO 650 mg Q4H PRN Administration Headache/Fever/Mild Pain (1-3) Amlodipine Besylate 10 mg 10/17/20 09:00 10/18/20 09:02 Amlodipine 10 Mg Tab PO 10 mg DAILY ADAM Administration Carbamazepine 100 mg 10/13/20 15:00 10/18/20 09:02 Carbamazepine 100 Mg Chewable Tablet PO 100 mg TID ADAM Administration Cyanocobalamin 1,000 mcg 10/14/20 09:00 10/18/20 09:02 Cyanocobalamin (Vitamin B-12) 1,000 Mcg Tab PO 1,000 mcg DAILY ADAM Administration Donepezil HCl 5 mg 10/17/20 09:00 10/18/20 09:02 Donepezil Hcl 5 Mg Tab PO 5 mg DAILY ADAM Administration Hydralazine HCl 10 mg 10/14/20 08:49 10/17/20 01:19 Hydralazine 20 Mg/Ml Vial SLOW IVP 10 mg Q4H PRN Administration SBP GREATER THAN 160 Meropenem 1 gm/ Device 50 mls @ 100 mls/hr 10/13/20 22:00 10/18/20 05:58 IVPB 50 mls Q8HR ADAM Administration Insulin Human Lispro 0 units 10/13/20 11:21 10/17/20 12:41 Humalog 300 Units/3 Ml Vial SC 2 unit .MODERATE SLIDING SC PRN Administration Moderate Correctional Scale Labetalol HCl 20 mg 10/15/20 10:41 10/15/20 23:35 Labetalol Hcl 100 Mg/20 Ml Vial SLOW IVP 20 mg Q4H PRN Administration SBP GREATER THAN 160 Levothyroxine Sodium 88 mcg 10/14/20 06:00 10/18/20 06:05 Levothyroxine Sodium 88 Mcg Tab PO 88 mcg 0600 ADAM Administration Lorazepam 1 mg 10/16/20 18:37 10/18/20 04:16 Lorazepam 2 Mg/Ml Vial SLOW IVP 1 mg Q8H PRN Administration Agitation Sodium Chloride 10 ml 10/13/20 20:58 10/17/20 15:21 Flush - Normal Saline 10 Ml Syringe IVF 10 ml PRN PRN Administration Saline Flush Timolol Maleate 1 drop 10/14/20 09:00 10/18/20 09:03 Timolol 0.5% Ophth Soln 5 Ml Bottle L EYE 1 drop DAILY ADAM Administration - Exam General Appearance: NAD Heart: no murmur, irregular Respiratory: no wheezes, no rales, no ronchi Gastrointestinal: non-tender, normal bowel sounds Extremities: no cyanosis, no clubbing, no edema Psychiatric - other findings: not responding to questions about person/place Hosp A/P (1) Cholangitis Code(s): K83.09 - OTHER CHOLANGITIS Status: Resolved (2) Encephalopathy Code(s): G93.40 - ENCEPHALOPATHY, UNSPECIFIED Status: Acute (3) Atrial fibrillation Code(s): I48.91 - UNSPECIFIED ATRIAL FIBRILLATION Status: Chronic Qualifiers: Atrial fibrillation type: unspecified Qualified Code(s): I48.91 - Unspecified atrial fibrillation (4) Diabetes type 2, controlled Code(s): E11.9 - TYPE 2 DIABETES MELLITUS WITHOUT COMPLICATIONS Status: Chronic Qualifiers: Diabetes mellitus halfway insulin use: without long wall mining machine helper use (5) Dyslipidemia Code(s): E78.5 - HYPERLIPIDEMIA, UNSPECIFIED Status: Chronic (6) Hypertension Code(s): I10 - ESSENTIAL (PRIMARY) HYPERTENSION Status: Chronic (7) Hypothyroidism Code(s): E03.9 - HYPOTHYROIDISM, UNSPECIFIED Status: Chronic - Plan Choledocholithiasis/cholecystitis and cholangitis - s/p ERCP with balloon sweep and cholecystectomy - appreciate GI and Gen Surg management - remains on meropenem - anticipate this can be stopped soon - it was started 10/13 Acute on chronic encephalopathy - resume home trazodone - cont med for dementia - prn haldol A fib - change to oral metoprolol with hold parameters - hold Xarelto - this is on her home medication list - rate controlled DM - controlled Hypothyroid - continue replacement pain - schedule tylenol four times daily (500 mg) and prn very low dose oxycodone dvt prophy - scd's gi prophy - not indicated, d/c IV famotidine. Pt takes protonix at home - will order code status DNAR Transfer to medical floor - pt remains rate controlled with a fib Addendum 15:07 - reviewed chart and pt has an allergy to haldol. Also reviewed ECG and she has a prolonged QT interval. haldol d/c. Will add prn zyprexa as this is not known to cause QT prolongation - will order low dose given patient's age and prn for agitation.
--- NOTE | 2020-10-18 13:51 | PRG ---
DATE OF SERVICE: 10/18/2020 SUBJECTIVE: Ms. Harry will wake up and eat when fed intermittently, but at other times is uncooperative. PHYSICAL EXAMINATION: VITAL SIGNS: Temperature is 98.1, pulse 98, blood pressure 158/77. GENERAL: She states that she has no abdominal pain. She is not otherwise significantly interactive. LUNGS: Clear to auscultation bilaterally. HEART: Regular rate and rhythm without murmur. ABDOMEN: Soft, nontender, and nondistended. Bowel sounds are present. EXTREMITIES: Trace lower extremity edema. LABORATORY DATA: White blood cell count 7.4, hemoglobin 11.5, platelets 219. Creatinine 0.71, bilirubin 1.6, AST 22, ALT 28, alkaline phosphatase 163. IMPRESSION: 1. Choledocholithiasis, status post endoscopic retrograde cholangiopancreatography and balloon stone extraction and cholecystectomy. 2. Dementia and confusion. She will eat intermittently when fed. We will encourage her to continue to improve her oral intake and take some Ensure between meals. Nursing reports that she drank her milk very well yesterday morning. She is also taking a pureed diet when fed. I will sign off for now. Please call if GI can be of assistance. Job ID: [id number]
--- NOTE | 2020-10-18 15:09 | PRG ---
DATE OF SERVICE: 10/18/2020 SUBJECTIVE: The patient is awake, but really not communicating. OBJECTIVE: ABDOMEN: Soft, nondistended, nontender. VITAL SIGNS: Her temperature is 98, pulse 98, blood pressure GENERAL: She does not appear to be in any distress. LABORATORY DATA: Her white count is 7.4, H and H 11 and 36, platelet count 219. Her bilirubin is 1.6 which is down. ASSESSMENT: Status post lap choly with multiple medical problems, stable. PLAN: Per medical treatment. Job ID: [id number]
[2020-10-18] MEDS: busPIRone HCl 5 MG TAB PO SCH (22:02)
[2020-10-18] MEDS: Metoprolol Tartrate 50 MG TAB PO SCH (22:02)
[2020-10-18] MEDS: traZODone HCl 50 MG TAB PO SCH (22:02)
[2020-10-19] MEDS: MEROPENEM 1 GM/50 ML 1 GM in Premix Bag 1 BAG IVPB SCH ×3 (05:25→21:13)
[2020-10-19] MEDS: Levothyroxine Sodium 88 MCG TAB PO SCH (05:34)
[2020-10-19] MEDS: Amlodipine 10 MG TAB PO SCH (09:13)
[2020-10-19] MEDS: busPIRone HCl 5 MG TAB PO SCH ×2 (09:14→21:13)
[2020-10-19] MEDS: Donepezil HCl 5 MG TAB PO SCH (09:15)
[2020-10-19] MEDS: Metoprolol Tartrate 50 MG TAB PO SCH ×2 (09:15→21:13)
[2020-10-19] MEDS: carBAMazepine 100 mg Chewable Tablet PO SCH ×3 (09:16→21:33)
[2020-10-19] MEDS: Cyanocobalamin (Vitamin B-12) 1,000 MCG TAB PO SCH (09:16)
[2020-10-19] MEDS: Timolol 0.5% Ophth Soln 5 ml Bottle L EYE SCH (09:42)
[2020-10-19] MEDS: traZODone HCl 50 MG TAB PO SCH (21:13)
[2020-10-19] MEDS: Famotidine 20 MG TAB PO SCH (21:13)
[2020-10-20] MEDS: MEROPENEM 1 GM/50 ML 1 GM in Premix Bag 1 BAG IVPB SCH ×3 (05:20→23:57)
[2020-10-20] MEDS: Levothyroxine Sodium 88 MCG TAB PO SCH (05:20)
--- NOTE | 2020-10-20 08:03 | PDOC.HOSPP ---
- Subjective Encounter Date: 10/19/20 Encounter Time: 11:15 Subjective: Patient up in bed confused - Objective Vital Signs & Weight: Vital Signs (12 hours) Temp Pulse Resp BP Pulse Ox 10/20/20 07:33 99.0 F 111 H 20 160/89 H 98 10/20/20 04:00 99 F 101 H 20 148/80 H 98 10/20/20 00:00 100 20 156/81 H 95 Weight Weight 175 lb I&O: 10/19/20 10/20/20 10/21/20 06:59 06:59 06:59 Intake Total 750 150 Output Total 950 1100 Balance -200 -950 Result Diagrams: 10/18/20 07:12 10/18/20 04:09 Additional Labs: Accuchecks 10/20/20 10/19/20 10/19/20 04:20 19:39 16:20 POC Glucose 124 H 104 H 97 10/19/20 11:39 POC Glucose 121 H Hospitalist ROS - Review of Systems Other: Unable to obtain. - Medication Medications: Active Medications Generic Name Dose Route Start Last Admin Trade Name Freq PRN Reason Stop Dose Admin Amlodipine Besylate 10 mg 10/17/20 09:00 10/19/20 09:13 Amlodipine 10 Mg Tab PO 10 mg DAILY ADAM Administration Buspirone HCl 5 mg 10/18/20 21:00 10/19/20 21:13 Buspirone Hcl 5 Mg Tab PO 5 mg BID ADAM Administration Carbamazepine 100 mg 10/13/20 15:00 10/19/20 21:33 Carbamazepine 100 Mg Chewable Tablet PO 100 mg TID ADAM Administration Cyanocobalamin 1,000 mcg 10/14/20 09:00 10/19/20 09:16 Cyanocobalamin (Vitamin B-12) 1,000 Mcg Tab PO 1,000 mcg DAILY ADAM Administration Famotidine 20 mg 10/19/20 21:00 10/19/20 21:13 Famotidine 20 Mg Tab PO 20 mg BID ADAM Administration Hydralazine HCl 10 mg 10/14/20 08:49 10/17/20 01:19 Hydralazine 20 Mg/Ml Vial SLOW IVP 10 mg Q4H PRN Administration SBP GREATER THAN 160 Meropenem 1 gm/ Device 50 mls @ 100 mls/hr 10/13/20 22:00 10/20/20 05:20 IVPB 50 mls Q8HR ADAM Administration Insulin Human Lispro 0 units 10/13/20 11:21 10/17/20 12:41 Humalog 300 Units/3 Ml Vial SC 2 unit .MODERATE SLIDING SC PRN Administration Moderate Correctional Scale Labetalol HCl 20 mg 10/15/20 10:41 10/15/20 23:35 Labetalol Hcl 100 Mg/20 Ml Vial SLOW IVP 20 mg Q4H PRN Administration SBP GREATER THAN 160 Levothyroxine Sodium 88 mcg 10/14/20 06:00 10/20/20 05:20 Levothyroxine Sodium 88 Mcg Tab PO 88 mcg 0600 ADAM Administration Lorazepam 1 mg 10/16/20 18:37 10/18/20 04:16 Lorazepam 2 Mg/Ml Vial SLOW IVP 1 mg Q8H PRN Administration Agitation Metoprolol Tartrate 50 mg 10/18/20 21:00 10/19/20 21:13 Metoprolol Tartrate 50 Mg Tab PO 50 mg BID ADAM Administration Quetiapine Fumarate 25 mg 10/19/20 17:00 10/19/20 18:15 Quetiapine Fumarate 25 Mg Tab PO 25 mg 1700 ADAM Administration Sodium Chloride 10 ml 10/13/20 20:58 10/17/20 15:21 Flush - Normal Saline 10 Ml Syringe IVF 10 ml PRN PRN Administration Saline Flush Timolol Maleate 1 drop 10/14/20 09:00 10/19/20 09:42 Timolol 0.5% Ophth Soln 5 Ml Bottle L EYE 1 drop DAILY ADAM Administration Trazodone HCl 50 mg 10/18/20 21:00 10/19/20 21:13 Trazodone Hcl 50 Mg Tab PO 50 mg HS ADAM Administration - Exam Heart: negative: RRR, no murmur, no gallops, no rubs, normal peripheral pulses, irregular, diminshed peripheral pulses, murmur present, II/IV, III/IV Respiratory: negative: CTAB, no wheezes, no rales, no ronchi, normal chest expansion, no tachypnea, normal percussion, rales, rhonchi, tachypneic, wheezes Gastrointestinal: negative: soft, non-tender, non-distended, normal bowel sounds, no palpable masses, no hepatomegaly, no splenomegaly, no bruit, no guarding, no rigidity, tender to palpation, distended, diminished bowl sounds, voluntary guarding Extremities: 1+ LE edema Neurological - other findings: Patient awake. Hosp A/P - Plan (1) Cholangitis Code(s): K83.09 - OTHER CHOLANGITIS Status: Resolved (2) Encephalopathy Code(s): G93.40 - ENCEPHALOPATHY, UNSPECIFIED Status: Acute (3) Atrial fibrillation Code(s): I48.91 - UNSPECIFIED ATRIAL FIBRILLATION Status: Chronic Qualifiers: Atrial fibrillation type: unspecified Qualified Code(s): I48.91 - Unspecified atrial fibrillation (4) Diabetes type 2, controlled Code(s): E11.9 - TYPE 2 DIABETES MELLITUS WITHOUT COMPLICATIONS Status: Chronic Qualifiers: Diabetes mellitus long line teamster insulin use: without intermediate use (5) Dyslipidemia Code(s): E78.5 - HYPERLIPIDEMIA, UNSPECIFIED Status: Chronic (6) Hypertension Code(s): I10 - ESSENTIAL (PRIMARY) HYPERTENSION Status: Chronic (7) Hypothyroidism Code(s): E03.9 - HYPOTHYROIDISM, UNSPECIFIED Status: Chronic - Plan Choledocholithiasis/cholecystitis and cholangitis - s/p ERCP with balloon sweep and cholecystectomy - appreciate GI and Gen Surg management - remains on meropenem - anticipate this can be stopped soon - it was started 10/13 and on 10/22 Acute on chronic encephalopathy - resume home trazodone - cont med for dementia -We will add some Seroquel. We will hold Aricept. A fib - change to oral metoprolol with hold parameters - hold Xarelto - this is on her home medication list - rate controlled DM - controlled Hypothyroid - continue replacement pain - schedule tylenol four times daily (500 mg) and prn very low dose oxycodone dvt prophy - scd's gi prophy -we will start patient on Pepcid. Transfer to medical floor - pt remains rate controlled with a fib Nutrition: Patient not eating too much. Will ask nursing staff to see if patien t is awake may get her up and feed her.
[2020-10-20] MEDS: Famotidine 20 MG TAB PO SCH ×2 (09:04→20:26)
[2020-10-20] MEDS: Cyanocobalamin (Vitamin B-12) 1,000 MCG TAB PO SCH (09:04)
[2020-10-20] MEDS: Amlodipine 10 MG TAB PO SCH (09:05)
[2020-10-20] MEDS: carBAMazepine 100 mg Chewable Tablet PO SCH ×3 (09:05→20:25)
[2020-10-20] MEDS: Metoprolol Tartrate 50 MG TAB PO SCH ×2 (09:05→20:26)
[2020-10-20] MEDS: busPIRone HCl 5 MG TAB PO SCH ×2 (09:05→20:25)
[2020-10-20] MEDS: Timolol 0.5% Ophth Soln 5 ml Bottle L EYE SCH (11:35)
[2020-10-20] MEDS: Dextrose 5 % And 0.9 % NaCl 1,000 ML IV SCH (11:36)
[2020-10-20] MEDS: traZODone HCl 50 MG TAB PO SCH (20:26)
[2020-10-21] MEDS: Dextrose 5 % And 0.9 % NaCl 1,000 ML IV SCH (05:13)
[2020-10-21] MEDS: Levothyroxine Sodium 88 MCG TAB PO SCH (05:13)
[2020-10-21] MEDS: MEROPENEM 1 GM/50 ML 1 GM in Premix Bag 1 BAG IVPB SCH (05:13)
[2020-10-21 06:53] LABS: #Lymphocytes 0.7 thou/uL (1.20-3.40); #Monocytes 1.2 thou/uL (0.11-0.59); #Neutrophils 9.1 thou/uL (1.40-6.50); %Basophils 0.2 % (0.0-1.0); %Eosinophils 0.2 % (0.0-10.0); %Lymphocytes 6.5 % (21.0-51.0); %Monocytes 10.9 % (0.0-10.0); %Neutrophils 82.2 % (42.0-75.0); Hemoglobin 12.8 g/dL (12.0-16.0); Mean Corpuscular Hemoglobin 27.8 pg (27.0-31.0); Mean Corpuscular Volume 89.6 fL (78.0-98.0); Mean Platelet Volume 9.1 fL (7.4-10.4); Platelet Count 160 thou/uL (130-400)
[2020-10-21 07:04] LABS: ALT (SGPT) 15 U/L (8-55); AST (SGOT) 12 U/L (5-34); Albumin 2.9 g/dL (3.4-4.8); Alkaline Phosphatase 151 U/L (40-110); Anion Gap 15 mmol/L (10-20); BUN (Urea Nitrogen) 19 mg/dL (9.8-20.1); Bilirubin, Total 1.2 mg/dL (0.2-1.2); Calc. Creatinine Clearance 65 mL/min (70-130); Calcium 8.2 mg/dL (7.8-10.44); Carbon Dioxide 25 mmol/L (23-31); Chloride 106 mmol/L (98-107); Globulin 3.2 g/dL (2.4-3.5); Glucose 177 mg/dL (83-110); Potassium 3.5 mmol/L (3.5-5.1); Protein, Total 6.1 g/dL (6.0-8.3); Sodium 142 mmol/L (136-145)
--- NOTE | 2020-10-21 08:59 | PDOC.HOSPP ---
- Subjective Encounter Date: 10/21/20 Encounter Time: 12:30 Subjective: Patient up in bed appears to be confused. - Objective Vital Signs & Weight: Vital Signs (12 hours) Temp Pulse Resp BP Pulse Ox 10/21/20 07:23 98.0 F 83 14 144/90 H 96 10/21/20 04:00 98.5 F 97 18 125/78 96 10/21/20 00:00 97.8 F 97 16 121/68 94 L Weight Weight 175 lb I&O: 10/20/20 10/21/20 10/22/20 06:59 06:59 06:59 Intake Total 150 Output Total 1100 300 Balance -950 -300 Result Diagrams: 10/21/20 06:27 10/21/20 06:27 Additional Labs: Accuchecks 10/20/20 10/20/20 10/20/20 20:05 16:42 11:47 POC Glucose 145 H 153 H 156 H Hospitalist ROS - Review of Systems Other: Unable to obtain - Medication Medications: Active Medications Generic Name Dose Route Start Last Admin Trade Name Freq PRN Reason Stop Dose Admin Amlodipine Besylate 10 mg 10/17/20 09:00 10/20/20 09:05 Amlodipine 10 Mg Tab PO 10 mg DAILY ADAM Administration Buspirone HCl 5 mg 10/18/20 21:00 10/20/20 20:25 Buspirone Hcl 5 Mg Tab PO 5 mg BID ADAM Administration Carbamazepine 100 mg 10/13/20 15:00 10/20/20 20:25 Carbamazepine 100 Mg Chewable Tablet PO 100 mg TID ADAM Administration Cyanocobalamin 1,000 mcg 10/14/20 09:00 10/20/20 09:04 Cyanocobalamin (Vitamin B-12) 1,000 Mcg Tab PO 1,000 mcg DAILY ADAM Administration Famotidine 20 mg 10/19/20 21:00 10/20/20 20:26 Famotidine 20 Mg Tab PO 20 mg BID ADAM Administration Hydralazine HCl 10 mg 10/14/20 08:49 10/17/20 01:19 Hydralazine 20 Mg/Ml Vial SLOW IVP 10 mg Q4H PRN Administration SBP GREATER THAN 160 Meropenem 1 gm/ Device 50 mls @ 100 mls/hr 10/13/20 22:00 10/21/20 05:13 IVPB 50 mls Q8HR ADAM Administration Dextrose/Sodium Chloride 1,000 mls @ 50 mls/hr 10/20/20 09:30 10/21/20 05:13 D5 0.9% Ns IV 1,000 mls .Q20H ADAM Administration Insulin Human Lispro 0 units 10/13/20 11:21 10/17/20 12:41 Humalog 300 Units/3 Ml Vial SC 2 unit .MODERATE SLIDING SC PRN Administration Moderate Correctional Scale Labetalol HCl 20 mg 10/15/20 10:41 10/15/20 23:35 Labetalol Hcl 100 Mg/20 Ml Vial SLOW IVP 20 mg Q4H PRN Administration SBP GREATER THAN 160 Levothyroxine Sodium 88 mcg 10/14/20 06:00 10/21/20 05:13 Levothyroxine Sodium 88 Mcg Tab PO 88 mcg 0600 ADAM Administration Lorazepam 1 mg 10/16/20 18:37 10/18/20 04:16 Lorazepam 2 Mg/Ml Vial SLOW IVP 1 mg Q8H PRN Administration Agitation Metoprolol Tartrate 50 mg 10/18/20 21:00 10/20/20 20:26 Metoprolol Tartrate 50 Mg Tab PO 50 mg BID ADAM Administration Sodium Chloride 10 ml 10/13/20 20:58 10/17/20 15:21 Flush - Normal Saline 10 Ml Syringe IVF 10 ml PRN PRN Administration Saline Flush Timolol Maleate 1 drop 10/14/20 09:00 10/20/20 11:35 Timolol 0.5% Ophth Soln 5 Ml Bottle L EYE 1 drop DAILY ADAM Administration Trazodone HCl 50 mg 10/18/20 21:00 10/20/20 20:26 Trazodone Hcl 50 Mg Tab PO 50 mg HS ADAM Administration - Exam Neck: negative: supple, symmetric, no JVD, no thyromegaly, no lymphadenopathy, no carotid bruit, JVD Heart: negative: RRR, no murmur, no gallops, no rubs, normal peripheral pulses, irregular, diminshed peripheral pulses, murmur present, II/IV, III/IV Respiratory: negative: CTAB, no wheezes, no rales, no ronchi, normal chest expansion, no tachypnea, normal percussion, rales, rhonchi, tachypneic, wheezes Gastrointestinal: negative: soft, non-tender, non-distended, normal bowel sounds, no palpable masses, no hepatomegaly, no splenomegaly, no bruit, no guarding, no rigidity, tender to palpation, distended, diminished bowl sounds, voluntary guarding Hosp A/P - Plan (1) Cholangitis Code(s): K83.09 - OTHER CHOLANGITIS Status: Resolved (2) Encephalopathy Code(s): G93.40 - ENCEPHALOPATHY, UNSPECIFIED Status: Acute (3) Atrial fibrillation Code(s): I48.91 - UNSPECIFIED ATRIAL FIBRILLATION Status: Chronic Qualifiers: Atrial fibrillation type: unspecified Qualified Code(s): I48.91 - Unspecified atrial fibrillation (4) Diabetes type 2, controlled Code(s): E11.9 - TYPE 2 DIABETES MELLITUS WITHOUT COMPLICATIONS Status: Chronic Qualifiers: Diabetes mellitus ocean transportation intermediary insulin use: without ocean transportation intermediary use (5) Dyslipidemia Code(s): E78.5 - HYPERLIPIDEMIA, UNSPECIFIED Status: Chronic (6) Hypertension Code(s): I10 - ESSENTIAL (PRIMARY) HYPERTENSION Status: Chronic (7) Hypothyroidism Code(s): E03.9 - HYPOTHYROIDISM, UNSPECIFIED Status: Chronic - Plan Choledocholithiasis/cholecystitis and cholangitis - s/p ERCP with balloon sweep and cholecystectomy - appreciate GI and Gen Surg management - remains on meropenem - anticipate this can be stopped soon - it was started 10/13 and on 10/22 Acute on chronic encephalopathy - resume home trazodone - cont med for dementia -We will add some Seroquel. We will hold Aricept. A fib - change to oral metoprolol with hold parameters - hold Xarelto - this is on her home medication list - rate controlled DM - controlled Hypothyroid - continue replacement pain - schedule tylenol four times daily (500 mg) and prn very low dose oxycodone dvt prophy - scd's gi prophy -we will start patient on Pepcid. Transfer to medical floor - pt remains rate controlled with a fib Nutrition: Patient not eating too much. Will ask nursing staff to see if patient is awake may get her up and feed her. 10/20 patient was given Seroquel last night she did sleep well. She was awake this morning had breakfast per nursing staff. We will see if we can get therapy to work with her. Will discontinue meropenem 10/22.
[2020-10-21] MEDS: Famotidine 20 MG TAB PO SCH ×2 (09:59→20:55)
[2020-10-21] MEDS: Timolol 0.5% Ophth Soln 5 ml Bottle L EYE SCH (09:59)
[2020-10-21] MEDS: carBAMazepine 100 mg Chewable Tablet PO SCH ×3 (09:59→20:55)
[2020-10-21] MEDS: oxyCODONE 5 MG TAB PO PRN ×2 (10:00→17:56)
[2020-10-21] MEDS: Cyanocobalamin (Vitamin B-12) 1,000 MCG TAB PO SCH (10:00)
[2020-10-21] MEDS: Amlodipine 10 MG TAB PO SCH (10:00)
[2020-10-21] MEDS: Metoprolol Tartrate 50 MG TAB PO SCH ×2 (10:00→20:55)
[2020-10-21] MEDS: busPIRone HCl 5 MG TAB PO SCH ×2 (10:00→20:55)
--- NOTE | 2020-10-21 18:32 | PDOC.HOSPP ---
- Subjective Encounter Date: 10/21/20 Encounter Time: 12:00 Subjective: Pt seen for followup re: acute encephalopathy. Pt not speaking, could not complete ROS. - Objective Vital Signs & Weight: Vital Signs (12 hours) Temp Pulse Resp BP Pulse Ox 10/21/20 08:00 96 10/21/20 07:23 98.0 F 83 14 144/90 H 96 Weight Admit Weight 175 lb Weight 175 lb I&O: 10/20/20 10/21/20 10/22/20 06:59 06:59 06:59 Intake Total 150 180 Output Total 1100 300 350 Balance -950 -300 -170 Result Diagrams: 10/21/20 06:27 10/21/20 06:27 Additional Labs: Accuchecks 10/21/20 10/21/20 10/20/20 15:27 11:25 20:05 POC Glucose 163 H 174 H 145 H Labs and MAR reviewed by de Hospitalist ROS - Review of Systems ROS unobtainable: due to mental status - Medication Medications: Active Medications Generic Name Dose Route Start Last Admin Trade Name Freq PRN Reason Stop Dose Admin Amlodipine Besylate 10 mg 10/17/20 09:00 10/21/20 10:00 Amlodipine 10 Mg Tab PO 10 mg DAILY ADAM Administration Buspirone HCl 5 mg 10/18/20 21:00 10/21/20 10:00 Buspirone Hcl 5 Mg Tab PO 5 mg BID ADAM Administration Carbamazepine 100 mg 10/13/20 15:00 10/21/20 15:09 Carbamazepine 100 Mg Chewable Tablet PO 100 mg TID ADAM Administration Cyanocobalamin 1,000 mcg 10/14/20 09:00 10/21/20 10:00 Cyanocobalamin (Vitamin B-12) 1,000 Mcg Tab PO 1,000 mcg DAILY ADAM Administration Famotidine 20 mg 10/19/20 21:00 10/21/20 09:59 Famotidine 20 Mg Tab PO 20 mg BID ADAM Administration Hydralazine HCl 10 mg 10/14/20 08:49 10/17/20 01:19 Hydralazine 20 Mg/Ml Vial SLOW IVP 10 mg Q4H PRN Administration SBP GREATER THAN 160 Dextrose/Sodium Chloride 1,000 mls @ 50 mls/hr 10/20/20 09:30 10/21/20 05:13 D5 0.9% Ns IV 1,000 mls .Q20H ADAM Administration Insulin Human Lispro 0 units 10/13/20 11:21 10/17/20 12:41 Humalog 300 Units/3 Ml Vial SC 2 unit .MODERATE SLIDING SC PRN Administration Moderate Correctional Scale Labetalol HCl 20 mg 10/15/20 10:41 10/15/20 23:35 Labetalol Hcl 100 Mg/20 Ml Vial SLOW IVP 20 mg Q4H PRN Administration SBP GREATER THAN 160 Levothyroxine Sodium 88 mcg 10/14/20 06:00 10/21/20 05:13 Levothyroxine Sodium 88 Mcg Tab PO 88 mcg 0600 ADAM Administration Lorazepam 1 mg 10/16/20 18:37 10/18/20 04:16 Lorazepam 2 Mg/Ml Vial SLOW IVP 1 mg Q8H PRN Administration Agitation Metoprolol Tartrate 50 mg 10/18/20 21:00 10/21/20 10:00 Metoprolol Tartrate 50 Mg Tab PO 50 mg BID ADAM Administration Oxycodone HCl 2.5 mg 10/18/20 10:23 10/21/20 17:56 Oxycodone 5 Mg Tab PO 2.5 mg Q6H PRN Administration Moderate to Severe Pain (6-10) Sodium Chloride 10 ml 10/13/20 20:58 10/17/20 15:21 Flush - Normal Saline 10 Ml Syringe IVF 10 ml PRN PRN Administration Saline Flush Timolol Maleate 1 drop 10/14/20 09:00 10/21/20 09:59 Timolol 0.5% Ophth Soln 5 Ml Bottle L EYE 1 drop DAILY ADAM Administration Trazodone HCl 50 mg 10/18/20 21:00 10/20/20 20:26 Trazodone Hcl 50 Mg Tab PO 50 mg HS ADAM Administration - Exam ENT: normocephalic atraumatic Neck: supple Heart: RRR Respiratory: CTAB Gastrointestinal: soft, non-tender Skin: no rashes Psychiatric: normal affect, normal behavior Hosp A/P - Plan - Assessment (1) Encephalopathy Code(s): G93.40 - ENCEPHALOPATHY, UNSPECIFIED Status: Acute (2) Atrial fibrillation Code(s): I48.91 - UNSPECIFIED ATRIAL FIBRILLATION Status: Chronic Qualifiers: Atrial fibrillation type: unspecified Qualified Code(s): I48.91 - Unspecified atrial fibrillation (3) Diabetes type 2, controlled Code(s): E11.9 - TYPE 2 DIABETES MELLITUS WITHOUT COMPLICATIONS Status: Chronic Qualifiers: Diabetes mellitus half-way insulin use: without ferry terminal agent use (4) Dyslipidemia Code(s): E78.5 - HYPERLIPIDEMIA, UNSPECIFIED Status: Chronic (5) Hypertension Code(s): I10 - ESSENTIAL (PRIMARY) HYPERTENSION Status: Chronic (6) Hypothyroidism Code(s): E03.9 - HYPOTHYROIDISM, UNSPECIFIED Status: Chronic (7) Cholangitis Code(s): K83.09 - OTHER CHOLANGITIS Status: Resolved - Plan Discontinue Seroquel. Choledocholithiasis/cholecystitis and cholangitis, s/p ERCP with balloon sweep and cholecystectomy A fib rate controlled DM - controlled Hypothyroid - continue thyroid replacement therapy
[2020-10-21] MEDS: traZODone HCl 50 MG TAB PO SCH (20:55)
[2020-10-22] MEDS: oxyCODONE 5 MG TAB PO PRN ×3 (05:35→20:14)
[2020-10-22] MEDS: Levothyroxine Sodium 88 MCG TAB PO SCH (05:35)
[2020-10-22] MEDS: Dextrose 5 % And 0.9 % NaCl 1,000 ML IV SCH (05:36)
[2020-10-22] MEDS: Timolol 0.5% Ophth Soln 5 ml Bottle L EYE SCH (09:05)
[2020-10-22] MEDS: Amlodipine 10 MG TAB PO SCH (09:05)
[2020-10-22] MEDS: carBAMazepine 100 mg Chewable Tablet PO SCH ×3 (09:06→20:14)
[2020-10-22] MEDS: Famotidine 20 MG TAB PO SCH ×2 (09:06→20:14)
[2020-10-22] MEDS: Metoprolol Tartrate 50 MG TAB PO SCH ×2 (09:06→20:14)
[2020-10-22] MEDS: Cyanocobalamin (Vitamin B-12) 1,000 MCG TAB PO SCH (09:06)
[2020-10-22] MEDS: busPIRone HCl 5 MG TAB PO SCH ×2 (09:06→20:14)
--- NOTE | 2020-10-22 15:57 | PDOC.HOSPP ---
- Subjective Encounter Date: 10/22/20 Encounter Time: 07:30 Subjective: Patient seen for follow-up regarding acute encephalopathy. Patient is nonverbal, review of systems. - Objective Vital Signs & Weight: Vital Signs (12 hours) Temp Pulse Resp BP Pulse Ox 10/22/20 08:00 99 10/22/20 07:51 98.4 F 97 18 143/90 H 99 Weight Admit Weight 175 lb Weight 175 lb I&O: 10/21/20 10/22/20 10/23/20 06:59 06:59 06:59 Intake Total 180 200 Output Total 300 650 Balance -300 -470 200 Result Diagrams: 10/21/20 06:27 10/21/20 06:27 Additional Labs: Accuchecks 10/22/20 10/22/20 10/21/20 11:55 05:27 23:58 POC Glucose 178 H 167 H 157 H 10/21/20 10/21/20 10/21/20 20:23 15:27 04:38 POC Glucose 192 H 163 H 174 H Labs and MAR reviewed by me Hospitalist ROS - Review of Systems ROS unobtainable: due to mental status - Medication Medications: Active Medications Generic Name Dose Route Start Last Admin Trade Name Freq PRN Reason Stop Dose Admin Amlodipine Besylate 10 mg 10/17/20 09:00 10/22/20 09:05 Amlodipine 10 Mg Tab PO 10 mg DAILY ADAM Administration Buspirone HCl 5 mg 10/18/20 21:00 10/22/20 09:06 Buspirone Hcl 5 Mg Tab PO 5 mg BID ADAM Administration Carbamazepine 100 mg 10/13/20 15:00 10/22/20 09:06 Carbamazepine 100 Mg Chewable Tablet PO 100 mg TID ADAM Administration Cyanocobalamin 1,000 mcg 10/14/20 09:00 10/22/20 09:06 Cyanocobalamin (Vitamin B-12) 1,000 Mcg Tab PO 1,000 mcg DAILY ADAM Administration Famotidine 20 mg 10/19/20 21:00 10/22/20 09:06 Famotidine 20 Mg Tab PO 20 mg BID ADAM Administration Hydralazine HCl 10 mg 10/14/20 08:49 10/17/20 01:19 Hydralazine 20 Mg/Ml Vial SLOW IVP 10 mg Q4H PRN Administration SBP GREATER THAN 160 Dextrose/Sodium Chloride 1,000 mls @ 50 mls/hr 10/20/20 09:30 10/22/20 05:36 D5 0.9% Ns IV 1,000 mls .Q20H ADAM Administration Insulin Human Lispro 0 units 10/13/20 11:21 10/17/20 12:41 Humalog 300 Units/3 Ml Vial SC 2 unit .MODERATE SLIDING SC PRN Administration Moderate Correctional Scale Labetalol HCl 20 mg 10/15/20 10:41 10/15/20 23:35 Labetalol Hcl 100 Mg/20 Ml Vial SLOW IVP 20 mg Q4H PRN Administration SBP GREATER THAN 160 Levothyroxine Sodium 88 mcg 10/14/20 06:00 10/22/20 05:35 Levothyroxine Sodium 88 Mcg Tab PO 88 mcg 0600 ADAM Administration Lorazepam 1 mg 10/16/20 18:37 10/18/20 04:16 Lorazepam 2 Mg/Ml Vial SLOW IVP 1 mg Q8H PRN Administration Agitation Metoprolol Tartrate 50 mg 10/18/20 21:00 10/22/20 09:06 Metoprolol Tartrate 50 Mg Tab PO 50 mg BID ADAM Administration Oxycodone HCl 2.5 mg 10/18/20 10:23 10/22/20 11:54 Oxycodone 5 Mg Tab PO 2.5 mg Q6H PRN Administration Moderate to Severe Pain (6-10) Sodium Chloride 10 ml 10/13/20 20:58 10/17/20 15:21 Flush - Normal Saline 10 Ml Syringe IVF 10 ml PRN PRN Administration Saline Flush Timolol Maleate 1 drop 10/14/20 09:00 10/22/20 09:05 Timolol 0.5% Ophth Soln 5 Ml Bottle L EYE 1 drop DAILY ADAM Administration Trazodone HCl 50 mg 10/18/20 21:00 10/21/20 20:55 Trazodone Hcl 50 Mg Tab PO 50 mg HS ADAM Administration - Exam ENT: moist mucosa Neck: supple Heart: irregular Respiratory: CTAB Gastrointestinal: soft Gastrointestinal - other findings: ostomy Skin: no rashes Psychiatric: lethargic Hosp A/P - Plan - Assessment (1) Encephalopathy Code(s): G93.40 - ENCEPHALOPATHY, UNSPECIFIED Status: Acute (2) Atrial fibrillation Code(s): I48.91 - UNSPECIFIED ATRIAL FIBRILLATION Status: Chronic Qualifiers: Atrial fibrillation type: unspecified Qualified Code(s): I48.91 - Unspecified atrial fibrillation (3) Diabetes type 2, controlled Code(s): E11.9 - TYPE 2 DIABETES MELLITUS WITHOUT COMPLICATIONS Status: Chronic Qualifiers: Diabetes mellitus exterminator termite insulin use: without shelter use (4) Dyslipidemia Code(s): E78.5 - HYPERLIPIDEMIA, UNSPECIFIED Status: Chronic (5) Hypertension Code(s): I10 - ESSENTIAL (PRIMARY) HYPERTENSION Status: Chronic (6) Hypothyroidism Code(s): E03.9 - HYPOTHYROIDISM, UNSPECIFIED Status: Chronic (7) Cholangitis Code(s): K83.09 - OTHER CHOLANGITIS Status: Resolved - Plan Acute encephalopathy is stable. Choledocholithiasis/cholecystitis and cholangitis, s/p ERCP with balloon sweep and cholecystectomy A fib rate controlled DM - controlled. Continue Accu-Cheks and insulin sliding scale. Hypothyroid -check TSH
[2020-10-22 17:04] LABS: #Eosinphils 0.1 thou/uL (0.0-0.7); #Monocytes 0.9 thou/uL (0.11-0.59); #Neutrophils 8.8 thou/uL (1.40-6.50); %Basophils 0.3 % (0.0-1.0); %Eosinophils 0.9 % (0.0-10.0); %Lymphocytes 9.2 % (21.0-51.0); %Monocytes 7.9 % (0.0-10.0); %Neutrophils 81.8 % (42.0-75.0); Hemoglobin 11.4 g/dL (12.0-16.0); Mean Corpuscular HGB CONC 31.1 g/dL (32.0-36.0); Mean Corpuscular Hemoglobin 28.5 pg (27.0-31.0); Mean Corpuscular Volume 91.7 fL (78.0-98.0); Mean Platelet Volume 8.2 fL (7.4-10.4); Platelet Count 300 thou/uL (130-400); RBC Distribution Width 15.7 % (11.5-14.5); Red Blood Cell (RBC) Count 4.01 mill/uL (4.20-5.40); White Blood Cell (WBC) Count 10.8 thou/uL (4.8-10.8)
[2020-10-22 17:20] LABS: Anion Gap 17 mmol/L (10-20); BUN (Urea Nitrogen) 17 mg/dL (9.8-20.1); Calc. Creatinine Clearance 63 mL/min (70-130); Calcium 8.5 mg/dL (7.8-10.44); Carbon Dioxide 24 mmol/L (23-31); Chloride 108 mmol/L (98-107); Glucose 188 mg/dL (83-110); Potassium 3.6 mmol/L (3.5-5.1); Sodium 145 mmol/L (136-145)
[2020-10-22] MEDS: traZODone HCl 50 MG TAB PO SCH (20:17)
[2020-10-23 04:54] LABS: Bacteria/HPF None Seen HPF (None Seen); Bilirubin Negative (Negative); Blood, Urine Negative (Negative); Clarity Clear (Clear); Glucose, Urine (Dipstick) Normal (Negative); Ketone, Urine Negative (Negative); Leukocyte Negative Leu/uL (Negative); Nitrite Negative (Negative); Protein, Urine (Dipstick) 50 mg/dL (Neg-Trace); RBC/HPF 0-3 HPF (0-3); Specific Gravity, Urine 1.017 (1.002-1.036); Urobilinogen Normal mg/dL (Less than 2); pH, Urine 6.5 (5.0-9.0)
[2020-10-23 04:56] LABS: Urine Culture Reflex No No
[2020-10-23] MEDS: Dextrose 5 % And 0.9 % NaCl 1,000 ML IV SCH ×2 (05:08→14:45)
[2020-10-23] MEDS: Levothyroxine Sodium 88 MCG TAB PO SCH (05:09)
[2020-10-23 06:05] LABS: #Eosinphils 0.1 thou/uL (0.0-0.7); #Lymphocytes 0.8 thou/uL (1.20-3.40); #Monocytes 0.7 thou/uL (0.11-0.59); #Neutrophils 7.4 thou/uL (1.40-6.50); %Basophils 0.1 % (0.0-1.0); %Eosinophils 1.2 % (0.0-10.0); %Lymphocytes 9.1 % (21.0-51.0); %Monocytes 7.7 % (0.0-10.0); %Neutrophils 81.9 % (42.0-75.0); Hemoglobin 11.1 g/dL (12.0-16.0); Mean Corpuscular HGB CONC 30.3 g/dL (32.0-36.0); Mean Corpuscular Hemoglobin 27.6 pg (27.0-31.0); Mean Corpuscular Volume 91.2 fL (78.0-98.0); Mean Platelet Volume 8.1 fL (7.4-10.4); Platelet Count 290 thou/uL (130-400); RBC Distribution Width 15.6 % (11.5-14.5); Red Blood Cell (RBC) Count 4.03 mill/uL (4.20-5.40); White Blood Cell (WBC) Count 9.1 thou/uL (4.8-10.8)
[2020-10-23 06:30] LABS: Anion Gap 15 mmol/L (10-20); BUN (Urea Nitrogen) 16 mg/dL (9.8-20.1); Calc. Creatinine Clearance 66 mL/min (70-130); Calcium 8.4 mg/dL (7.8-10.44); Carbon Dioxide 25 mmol/L (23-31); Chloride 107 mmol/L (98-107); Glucose 170 mg/dL (83-110); Potassium 3.9 mmol/L (3.5-5.1); Sodium 143 mmol/L (136-145)
[2020-10-23] MEDS: Metoprolol Tartrate 50 MG TAB PO SCH ×2 (08:34→21:09)
[2020-10-23] MEDS: Amlodipine 10 MG TAB PO SCH (08:34)
[2020-10-23] MEDS: oxyCODONE 5 MG TAB PO PRN (08:34)
[2020-10-23] MEDS: carBAMazepine 100 mg Chewable Tablet PO SCH ×3 (08:34→21:09)
[2020-10-23] MEDS: Famotidine 20 MG TAB PO SCH ×2 (08:35→21:09)
[2020-10-23] MEDS: Cyanocobalamin (Vitamin B-12) 1,000 MCG TAB PO SCH (08:35)
[2020-10-23] MEDS: busPIRone HCl 5 MG TAB PO SCH ×2 (08:35→21:09)
[2020-10-23] MEDS: Timolol 0.5% Ophth Soln 5 ml Bottle L EYE SCH (08:36)
--- NOTE | 2020-10-23 14:22 | PDOC.HOSPP ---
- Subjective Encounter Date: 10/23/20 Encounter Time: 08:45 Subjective: awake, follows verbal stimuli is heard yelling and screaming at times in hallway - Objective Vital Signs & Weight: Vital Signs (12 hours) Temp Pulse Resp BP BP BP Pulse Ox 10/23/20 08:36 93 134/69 10/23/20 08:34 93 134/69 10/23/20 08:19 97.7 F 93 18 134/69 10/23/20 08:00 98 10/23/20 05:12 97.6 F 79 20 153/70 H 98 Weight Admit Weight 175 lb Weight 175 lb I&O: 10/22/20 10/23/20 10/24/20 06:59 06:59 06:59 Intake Total 180 620 Output Total 650 300 Balance -470 320 Result Diagrams: 10/23/20 05:54 10/23/20 05:54 Additional Labs: Accuchecks 10/23/20 10/23/20 10/22/20 11:25 05:22 19:55 POC Glucose 142 H 206 H 189 H 10/22/20 17:43 POC Glucose 176 H Hospitalist ROS - Medication Medications: Active Medications Generic Name Dose Route Start Last Admin Trade Name Freq PRN Reason Stop Dose Admin Amlodipine Besylate 10 mg 10/17/20 09:00 10/23/20 08:34 Amlodipine 10 Mg Tab PO 10 mg DAILY ADAM Administration Buspirone HCl 5 mg 10/18/20 21:00 10/23/20 08:35 Buspirone Hcl 5 Mg Tab PO 5 mg BID ADAM Administration Carbamazepine 100 mg 10/13/20 15:00 10/23/20 08:34 Carbamazepine 100 Mg Chewable Tablet PO 100 mg TID ADAM Administration Cyanocobalamin 1,000 mcg 10/14/20 09:00 10/23/20 08:35 Cyanocobalamin (Vitamin B-12) 1,000 Mcg Tab PO 1,000 mcg DAILY ADAM Administration Famotidine 20 mg 10/19/20 21:00 10/23/20 08:35 Famotidine 20 Mg Tab PO 20 mg BID ADAM Administration Hydralazine HCl 10 mg 10/14/20 08:49 10/17/20 01:19 Hydralazine 20 Mg/Ml Vial SLOW IVP 10 mg Q4H PRN Administration SBP GREATER THAN 160 Dextrose/Sodium Chloride 1,000 mls @ 50 mls/hr 10/20/20 09:30 10/23/20 05:08 D5 0.9% Ns IV 1,000 mls .Q20H ADAM Administration Insulin Human Lispro 0 units 10/13/20 11:21 10/17/20 12:41 Humalog 300 Units/3 Ml Vial SC 2 unit .MODERATE SLIDING SC PRN Administration Moderate Correctional Scale Labetalol HCl 20 mg 10/15/20 10:41 10/15/20 23:35 Labetalol Hcl 100 Mg/20 Ml Vial SLOW IVP 20 mg Q4H PRN Administration SBP GREATER THAN 160 Levothyroxine Sodium 88 mcg 10/14/20 06:00 10/23/20 05:09 Levothyroxine Sodium 88 Mcg Tab PO 88 mcg 0600 ADAM Administration Lorazepam 1 mg 10/16/20 18:37 10/18/20 04:16 Lorazepam 2 Mg/Ml Vial SLOW IVP 1 mg Q8H PRN Administration Agitation Metoprolol Tartrate 50 mg 10/18/20 21:00 10/23/20 08:34 Metoprolol Tartrate 50 Mg Tab PO 50 mg BID ADAM Administration Oxycodone HCl 2.5 mg 10/18/20 10:23 10/23/20 08:34 Oxycodone 5 Mg Tab PO 2.5 mg Q6H PRN Administration Moderate to Severe Pain (6-10) Sodium Chloride 10 ml 10/13/20 20:58 10/17/20 15:21 Flush - Normal Saline 10 Ml Syringe IVF 10 ml PRN PRN Administration Saline Flush Timolol Maleate 1 drop 10/14/20 09:00 10/23/20 08:36 Timolol 0.5% Ophth Soln 5 Ml Bottle L EYE 1 drop DAILY ADAM Administration Trazodone HCl 50 mg 10/18/20 21:00 10/22/20 20:17 Trazodone Hcl 50 Mg Tab PO 50 mg HS ADAM Administration - Exam General Appearance: awake alert Eye: PERRL, anicteric sclera ENT: no oropharyngeal lesions, moist mucosa Neck: supple, no JVD Heart: RRR, no murmur Respiratory: no wheezes, no rales Gastrointestinal: soft, non-tender, non-distended, normal bowel sounds Extremities: no cyanosis, no edema Neurological: cranial nerve grossly intact, no focal deficits Hosp A/P (1) Choledocholithiasis with acute cholecystitis with obstruction Code(s): K80.43 - CALCULUS OF BILE DUCT W ACUTE CHOLECYSTITIS WITH OBSTRUCTION Status: Resolved (2) Encephalopathy Code(s): G93.40 - ENCEPHALOPATHY, UNSPECIFIED Status: Resolved (3) Cholangitis Code(s): K83.09 - OTHER CHOLANGITIS Status: Resolved (4) POLI (acute kidney injury) Code(s): N17.9 - ACUTE KIDNEY FAILURE, UNSPECIFIED Status: Resolved (5) Chronic a-fib Code(s): I48.2 - CHRONIC ATRIAL FIBRILLATION * DO NOT USE * Status: Chronic (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 Code(s): Z93.3 - COLOSTOMY STATUS Status: Chronic (7) Dementia Code(s): F03.90 - UNSPECIFIED DEMENTIA WITHOUT BEHAVIORAL DISTURBANCE Status: Chronic Qualifiers: Dementia type: Alzheimer's disease (8) Diabetes type 2, controlled Code(s): E11.9 - TYPE 2 DIABETES MELLITUS WITHOUT COMPLICATIONS Status: Chronic Qualifiers: Diabetes mellitus fpc insulin use: without fpc use (9) Dyslipidemia Code(s): E78.5 - HYPERLIPIDEMIA, UNSPECIFIED Status: Chronic (10) GERD (gastroesophageal reflux disease) Code(s): K21.9 - GASTRO-ESOPHAGEAL REFLUX DISEASE WITHOUT ESOPHAGITIS Status: Chronic Qualifiers: Esophagitis presence: esophagitis presence not specified Qualified Code(s): K21.9 - Gastro-esophageal reflux disease without esophagitis (11) Glaucoma Code(s): H40.9 - UNSPECIFIED GLAUCOMA Status: Chronic Qualifiers: Glaucoma type: unspecified Laterality: bilateral Qualified Code(s): H40.9 - Unspecified glaucoma (12) Hypertension Code(s): I10 - ESSENTIAL (PRIMARY) HYPERTENSION Status: Chronic Qualifiers: Hypertension type: essential hypertension Qualified Code(s): I10 - Essential (primary) hypertension (13) Hypothyroidism Code(s): E03.9 - HYPOTHYROIDISM, UNSPECIFIED Status: Chronic (14) Parkinson disease Code(s): G20 - PARKINSON'S DISEASE Status: Chronic (15) Physical deconditioning Code(s): R53.81 - OTHER MALAISE Status: Chronic - Plan pt is s/p ercp with stone/sludge extraction and sphinterotomy, lap cholecystomy. likely at baseline cognitive status dc plan to snf on sunday if she is tolerating oral diet well d/w son and gave full updates encourage po intake continue norvasc, lopressor, tegretol, buspirone, trazadone, synthroid and iv fluids hemostable
[2020-10-23] MEDS: traZODone HCl 50 MG TAB PO SCH (21:09)
[2020-10-24] MEDS: Levothyroxine Sodium 88 MCG TAB PO SCH (05:05)
[2020-10-24] MEDS: Cyanocobalamin (Vitamin B-12) 1,000 MCG TAB PO SCH (09:21)
[2020-10-24] MEDS: Amlodipine 10 MG TAB PO SCH (09:21)
[2020-10-24] MEDS: Famotidine 20 MG TAB PO SCH ×2 (09:21→21:04)
[2020-10-24] MEDS: Metoprolol Tartrate 50 MG TAB PO SCH ×2 (09:23→21:03)
[2020-10-24] MEDS: carBAMazepine 100 mg Chewable Tablet PO SCH ×3 (09:23→21:05)
[2020-10-24] MEDS: busPIRone HCl 5 MG TAB PO SCH ×2 (09:23→21:04)
[2020-10-24] MEDS: Timolol 0.5% Ophth Soln 5 ml Bottle L EYE SCH (09:24)
[2020-10-24] MEDS: HumaLOG 300 UNITS/3 ML VIAL SC PRN (12:28)
--- NOTE | 2020-10-24 12:36 | PDOC.HOSPP ---
- Subjective Encounter Date: 10/24/20 Encounter Time: 09:10 Subjective: awake, responds well to verbal stimuli is not fully oriented - Objective Vital Signs & Weight: Vital Signs (12 hours) Temp Pulse Resp BP BP Pulse Ox 10/24/20 09:24 87 134/84 10/24/20 09:21 87 134/84 10/24/20 08:29 97.6 F 87 20 170/103 H 98 Weight Admit Weight 175 lb Weight 175 lb I&O: 10/23/20 10/24/20 10/25/20 06:59 06:59 06:59 Intake Total 620 Output Total 300 Balance 320 Result Diagrams: 10/23/20 05:54 10/23/20 05:54 Additional Labs: Accuchecks 10/24/20 10/24/20 10/23/20 11:37 05:18 21:08 POC Glucose 168 H 137 H 178 H 10/23/20 16:44 POC Glucose 153 H Hospitalist ROS - Medication Medications: Active Medications Generic Name Dose Route Start Last Admin Trade Name Samsonq PRN Reason Stop Dose Admin Amlodipine Besylate 10 mg 10/17/20 09:00 10/24/20 09:21 Amlodipine 10 Mg Tab PO 10 mg DAILY ADAM Administration Buspirone HCl 5 mg 10/18/20 21:00 10/24/20 09:23 Buspirone Hcl 5 Mg Tab PO 5 mg BID ADAM Administration Carbamazepine 100 mg 10/13/20 15:00 10/24/20 09:23 Carbamazepine 100 Mg Chewable Tablet PO 100 mg TID ADAM Administration Cyanocobalamin 1,000 mcg 10/14/20 09:00 10/24/20 09:21 Cyanocobalamin (Vitamin B-12) 1,000 Mcg Tab PO 1,000 mcg DAILY ADAM Administration Famotidine 20 mg 10/19/20 21:00 10/24/20 09:21 Famotidine 20 Mg Tab PO 20 mg BID ADAM Administration Hydralazine HCl 10 mg 10/14/20 08:49 10/17/20 01:19 Hydralazine 20 Mg/Ml Vial SLOW IVP 10 mg Q4H PRN Administration SBP GREATER THAN 160 Dextrose/Sodium Chloride 1,000 mls @ 50 mls/hr 10/20/20 09:30 10/23/20 14:45 D5 0.9% Ns IV Not Given .Q20H ADAM Insulin Human Lispro 0 units 10/13/20 11:21 10/24/20 12:28 Humalog 300 Units/3 Ml Vial SC 2 unit .MODERATE SLIDING SC PRN Administration Moderate Correctional Scale Labetalol HCl 20 mg 10/15/20 10:41 10/15/20 23:35 Labetalol Hcl 100 Mg/20 Ml Vial SLOW IVP 20 mg Q4H PRN Administration SBP GREATER THAN 160 Levothyroxine Sodium 88 mcg 10/14/20 06:00 10/24/20 05:05 Levothyroxine Sodium 88 Mcg Tab PO 88 mcg 0600 ADAM Administration Lorazepam 1 mg 10/16/20 18:37 10/18/20 04:16 Lorazepam 2 Mg/Ml Vial SLOW IVP 1 mg Q8H PRN Administration Agitation Metoprolol Tartrate 50 mg 10/18/20 21:00 10/24/20 09:23 Metoprolol Tartrate 50 Mg Tab PO 50 mg BID ADAM Administration Oxycodone HCl 2.5 mg 10/18/20 10:23 10/23/20 08:34 Oxycodone 5 Mg Tab PO 2.5 mg Q6H PRN Administration Moderate to Severe Pain (6-10) Sodium Chloride 10 ml 10/13/20 20:58 10/17/20 15:21 Flush - Normal Saline 10 Ml Syringe IVF 10 ml PRN PRN Administration Saline Flush Timolol Maleate 1 drop 10/14/20 09:00 10/24/20 09:24 Timolol 0.5% Ophth Soln 5 Ml Bottle L EYE 1 drop DAILY ADAM Administration Trazodone HCl 50 mg 10/18/20 21:00 10/23/20 21:09 Trazodone Hcl 50 Mg Tab PO 50 mg HS ADAM Administration - Exam General Appearance: awake alert Eye: PERRL, anicteric sclera ENT: no oropharyngeal lesions, dry oral mucosa Neck: supple, no JVD Heart: RRR, no murmur Respiratory: no wheezes, rales, rhonchi Gastrointestinal: soft, non-tender, non-distended, normal bowel sounds Extremities: no cyanosis, no edema Neurological: cranial nerve grossly intact, no focal deficits Hosp A/P (1) Choledocholithiasis with acute cholecystitis with obstruction Code(s): K80.43 - CALCULUS OF BILE DUCT W ACUTE CHOLECYSTITIS WITH OBSTRUCTION Status: Resolved (2) Encephalopathy Code(s): G93.40 - ENCEPHALOPATHY, UNSPECIFIED Status: Resolved (3) Cholangitis Code(s): K83.09 - OTHER CHOLANGITIS Status: Resolved (4) POLI (acute kidney injury) Code(s): N17.9 - ACUTE KIDNEY FAILURE, UNSPECIFIED Status: Resolved (5) Chronic a-fib Code(s): I48.2 - CHRONIC ATRIAL FIBRILLATION * DO NOT USE * Status: Chronic (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 Code(s): Z93.3 - COLOSTOMY STATUS Status: Chronic (7) Dementia Code(s): F03.90 - UNSPECIFIED DEMENTIA WITHOUT BEHAVIORAL DISTURBANCE Status: Chronic Qualifiers: Dementia type: Alzheimer's disease (8) Diabetes type 2, controlled Code(s): E11.9 - TYPE 2 DIABETES MELLITUS WITHOUT COMPLICATIONS Status: Chronic Qualifiers: Diabetes mellitus penitentiary insulin use: without penitentiary use (9) Dyslipidemia Code(s): E78.5 - HYPERLIPIDEMIA, UNSPECIFIED Status: Chronic (10) GERD (gastroesophageal reflux disease) Code(s): K21.9 - GASTRO-ESOPHAGEAL REFLUX DISEASE WITHOUT ESOPHAGITIS Status: Chronic Qualifiers: Esophagitis presence: esophagitis presence not specified Qualified Code(s): K21.9 - Gastro-esophageal reflux disease without esophagitis (11) Glaucoma Code(s): H40.9 - UNSPECIFIED GLAUCOMA Status: Chronic Qualifiers: Glaucoma type: unspecified Laterality: bilateral Qualified Code(s): H40.9 - Unspecified glaucoma (12) Hypertension Code(s): I10 - ESSENTIAL (PRIMARY) HYPERTENSION Status: Chronic Qualifiers: Hypertension type: essential hypertension Qualified Code(s): I10 - Essential (primary) hypertension (13) Hypothyroidism Code(s): E03.9 - HYPOTHYROIDISM, UNSPECIFIED Status: Chronic (14) Parkinson disease Code(s): G20 - PARKINSON'S DISEASE Status: Chronic (15) Physical deconditioning Code(s): R53.81 - OTHER MALAISE Status: Chronic - Plan pt is s/p ercp with stone/sludge extraction and sphinterotomy, lap cholecystomy. likely at baseline cognitive status dc plan to snf on sunday if she is tolerating oral diet well d/w son and gave full updates 10/23 encourage po intake continue norvasc, lopressor, tegretol, buspirone, trazadone, synthroid. one dose lasix for mild volume overload hemostable
[2020-10-24] MEDS ORDERED: Furosemide 40 MG/4 ML VIAL SLOW IVP SCH (12:45)
--- NOTE | 2020-10-24 13:38 | RAD ---
PORTABLE CHEST 1 VIEW: Date: 10/24/2020 Time: 1317 hours HISTORY: Shortness of breath. COMPARISON: 10/13/2020. FINDINGS: The heart size is enlarged. The aorta is tortuous. 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 The lungs are well expanded without lobar consolidation, pneumothoraces, carmen pulmonary edema, or pleura l effusions. IMPRESSION: No acute process. POS: OFF
[2020-10-24] MEDS ORDERED: Furosemide 40 MG TAB PO SCH (14:45)
[2020-10-24] MEDS: OLANZapine 10 MG VIAL IM PRN (17:20)
[2020-10-24] MEDS: Sterile Water 10 ML VIAL FS PRN (17:22)
[2020-10-24] MEDS: traZODone HCl 50 MG TAB PO SCH (21:04)
[2020-10-25] MEDS: Levothyroxine Sodium 88 MCG TAB PO SCH (05:19)
[2020-10-25 06:25] LABS: #Eosinphils 0.2 thou/uL (0.0-0.7); #Monocytes 0.6 thou/uL (0.11-0.59); #Neutrophils 5.4 thou/uL (1.40-6.50); %Basophils 0.3 % (0.0-1.0); %Eosinophils 2.2 % (0.0-10.0); %Lymphocytes 13.7 % (21.0-51.0); %Monocytes 8.2 % (0.0-10.0); %Neutrophils 75.6 % (42.0-75.0); Hemoglobin 11.3 g/dL (12.0-16.0); Mean Corpuscular HGB CONC 31.3 g/dL (32.0-36.0); Mean Corpuscular Hemoglobin 27.5 pg (27.0-31.0); Mean Corpuscular Volume 87.7 fL (78.0-98.0); Mean Platelet Volume 7.6 fL (7.4-10.4); Platelet Count 276 thou/uL (130-400); RBC Distribution Width 15.2 % (11.5-14.5); White Blood Cell (WBC) Count 7.2 thou/uL (4.8-10.8)
[2020-10-25 06:45] LABS: Anion Gap 16 mmol/L (10-20); BUN (Urea Nitrogen) 14 mg/dL (9.8-20.1); Calc. Creatinine Clearance 65 mL/min (70-130); Calcium 7.6 mg/dL (7.8-10.44); Carbon Dioxide 29 mmol/L (23-31); Chloride 102 mmol/L (98-107); Glucose 160 mg/dL (83-110); Potassium 3.2 mmol/L (3.5-5.1); Sodium 144 mmol/L (136-145)
[2020-10-25] MEDS: carBAMazepine 100 mg Chewable Tablet PO SCH ×3 (08:42→21:52)
[2020-10-25] MEDS: Metoprolol Tartrate 50 MG TAB PO SCH ×2 (08:43→21:49)
[2020-10-25] MEDS: Famotidine 20 MG TAB PO SCH ×2 (08:43→21:48)
[2020-10-25] MEDS: Cyanocobalamin (Vitamin B-12) 1,000 MCG TAB PO SCH (08:43)
[2020-10-25] MEDS: busPIRone HCl 5 MG TAB PO SCH ×2 (08:43→21:49)
[2020-10-25] MEDS: Timolol 0.5% Ophth Soln 5 ml Bottle L EYE SCH (08:43)
[2020-10-25] MEDS: Amlodipine 10 MG TAB PO SCH (08:44)
[2020-10-25] MEDS ORDERED: Furosemide 40 MG/4 ML VIAL SLOW IVP SCH (09:00)
[2020-10-25] MEDS: Sterile Water 10 ML VIAL FS PRN (13:44)
[2020-10-25] MEDS: OLANZapine 10 MG VIAL IM PRN (13:44)
--- NOTE | 2020-10-25 14:04 | PDOC.HOSPP ---
- Subjective Encounter Date: 10/25/20 Encounter Time: 10:45 Subjective: is sleeping but arousable not in distress - Objective Vital Signs & Weight: Vital Signs (12 hours) Temp Pulse Resp BP BP BP Pulse Ox 10/25/20 11:52 98.1 F 92 18 129/71 129/71 10/25/20 08:44 74 143/83 H 10/25/20 08:43 74 143/83 H 10/25/20 08:00 98.1 F 143/83 H 97 10/25/20 07:31 98.1 F 74 20 143/83 H 98 10/25/20 07:22 74 16 94 L 10/25/20 04:45 97.6 F 74 20 132/74 98 Weight Admit Weight 175 lb Weight 175 lb I&O: 10/24/20 10/25/20 10/26/20 06:59 06:59 06:59 Intake Total 1490 Output Total 1225 Balance 265 Result Diagrams: 10/25/20 06:15 10/25/20 06:15 Additional Labs: Accuchecks 10/25/20 10/24/20 10/24/20 04:43 20:16 16:22 POC Glucose 151 H 173 H 110 H Hospitalist ROS - Medication Medications: Active Medications Generic Name Dose Route Start Last Admin Trade Name Freq PRN Reason Stop Dose Admin Albuterol/Ipratropium 3 ml 10/24/20 13:00 10/25/20 07:22 Ipratropium/Albuterol Sulfate 3 Ml Neb NEB 3 ml [id number] ADAM Administration Amlodipine Besylate 10 mg 10/17/20 09:00 10/25/20 08:44 Amlodipine 10 Mg Tab PO 10 mg DAILY ADAM Administration Buspirone HCl 5 mg 10/18/20 21:00 10/25/20 08:43 Buspirone Hcl 5 Mg Tab PO 5 mg BID ADAM Administration Carbamazepine 100 mg 10/13/20 15:00 10/25/20 08:42 Carbamazepine 100 Mg Chewable Tablet PO 100 mg TID ADAM Administration Cyanocobalamin 1,000 mcg 10/14/20 09:00 10/25/20 08:43 Cyanocobalamin (Vitamin B-12) 1,000 Mcg Tab PO 1,000 mcg DAILY ADAM Administration Famotidine 20 mg 10/19/20 21:00 10/25/20 08:43 Famotidine 20 Mg Tab PO 20 mg BID ADAM Administration Hydralazine HCl 10 mg 10/14/20 08:49 10/17/20 01:19 Hydralazine 20 Mg/Ml Vial SLOW IVP 10 mg Q4H PRN Administration SBP GREATER THAN 160 Insulin Human Lispro 0 units 10/13/20 11:21 10/24/20 12:28 Humalog 300 Units/3 Ml Vial SC 2 unit .MODERATE SLIDING SC PRN Administration Moderate Correctional Scale Labetalol HCl 20 mg 10/15/20 10:41 10/15/20 23:35 Labetalol Hcl 100 Mg/20 Ml Vial SLOW IVP 20 mg Q4H PRN Administration SBP GREATER THAN 160 Levothyroxine Sodium 88 mcg 10/14/20 06:00 10/25/20 05:19 Levothyroxine Sodium 88 Mcg Tab PO 88 mcg 0600 ADAM Administration Lorazepam 1 mg 10/16/20 18:37 10/18/20 04:16 Lorazepam 2 Mg/Ml Vial SLOW IVP 1 mg Q8H PRN Administration Agitation Metoprolol Tartrate 50 mg 10/18/20 21:00 10/25/20 08:43 Metoprolol Tartrate 50 Mg Tab PO 50 mg BID ADAM Administration Oxycodone HCl 2.5 mg 10/18/20 10:23 10/23/20 08:34 Oxycodone 5 Mg Tab PO 2.5 mg Q6H PRN Administration Moderate to Severe Pain (6-10) Sodium Chloride 10 ml 10/13/20 20:58 10/17/20 15:21 Flush - Normal Saline 10 Ml Syringe IVF 10 ml PRN PRN Administration Saline Flush Sterile Water 1.2 ml 10/15/20 18:45 10/25/20 13:44 Sterile Water 10 Ml Vial FS 1.2 ml PRN PRN Administration RECONSTITUTION Timolol Maleate 1 drop 10/14/20 09:00 10/25/20 08:43 Timolol 0.5% Ophth Soln 5 Ml Bottle L EYE 1 drop DAILY ADAM Administration - Exam Eye: PERRL, anicteric sclera ENT: no oropharyngeal lesions, dry oral mucosa Neck: supple, no JVD Heart: RRR, no murmur Respiratory: no wheezes, no rales Gastrointestinal: soft, non-tender, non-distended, normal bowel sounds Extremities: no cyanosis, no edema Neurological: cranial nerve grossly intact, no focal deficits Hosp A/P (1) Choledocholithiasis with acute cholecystitis with obstruction Code(s): K80.43 - CALCULUS OF BILE DUCT W ACUTE CHOLECYSTITIS WITH OBSTRUCTION Status: Resolved (2) Encephalopathy Code(s): G93.40 - ENCEPHALOPATHY, UNSPECIFIED Status: Resolved (3) Cholangitis Code(s): K83.09 - OTHER CHOLANGITIS Status: Resolved (4) POLI (acute kidney injury) Code(s): N17.9 - ACUTE KIDNEY FAILURE, UNSPECIFIED Status: Resolved (5) Chronic a-fib Code(s): I48.2 - CHRONIC ATRIAL FIBRILLATION * DO NOT USE * Status: Chronic (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 Code(s): Z93.3 - COLOSTOMY STATUS Status: Chronic (7) Dementia Code(s): F03.90 - UNSPECIFIED DEMENTIA WITHOUT BEHAVIORAL DISTURBANCE Status: Chronic Qualifiers: Dementia type: Alzheimer's disease (8) Diabetes type 2, controlled Code(s): E11.9 - TYPE 2 DIABETES MELLITUS WITHOUT COMPLICATIONS Status: Diversional Therapist'S Assistant jany Qualifiers: Diabetes mellitus retirement insulin use: without retirement use (9) Dyslipidemia Code(s): E78.5 - HYPERLIPIDEMIA, UNSPECIFIED Status: Chronic (10) GERD (gastroesophageal reflux disease) Code(s): K21.9 - GASTRO-ESOPHAGEAL REFLUX DISEASE WITHOUT ESOPHAGITIS Status: Chronic Qualifiers: Esophagitis presence: esophagitis presence not specified Qualified Code(s): K21.9 - Gastro-esophageal reflux disease without esophagitis (11) Glaucoma Code(s): H40.9 - UNSPECIFIED GLAUCOMA Status: Chronic Qualifiers: Glaucoma type: unspecified Laterality: bilateral Qualified Code(s): H40.9 - Unspecified glaucoma (12) Hypertension Code(s): I10 - ESSENTIAL (PRIMARY) HYPERTENSION Status: Chronic Qualifiers: Hypertension type: essential hypertension Qualified Code(s): I10 - Essential (primary) hypertension (13) Hypothyroidism Code(s): E03.9 - HYPOTHYROIDISM, UNSPECIFIED Status: Chronic (14) Parkinson disease Code(s): G20 - PARKINSON'S DISEASE Status: Chronic (15) Physical deconditioning Code(s): R53.81 - OTHER MALAISE Status: Chronic - Plan pt is s/p ercp with stone/sludge extraction and sphinterotomy, lap cholecystomy. likely at baseline cognitive status dc plan to snf if accepted add seroquel 25mg bid, and increase trazadone to 100mg HS. d/w son and gave full updates / encourage po intake continue norvasc, lopressor, tegretol, buspirone, trazadone, synthroid. hemostable
[2020-10-25] MEDS: HumaLOG 300 UNITS/3 ML VIAL SC PRN (16:57)
[2020-10-25] MEDS: traZODone HCl 50 MG TAB PO SCH (21:48)
[2020-10-26] MEDS: Levothyroxine Sodium 88 MCG TAB PO SCH (05:55)
[2020-10-26] MEDS: Amlodipine 10 MG TAB PO SCH (11:28)
[2020-10-26] MEDS: busPIRone HCl 5 MG TAB PO SCH ×2 (11:29→21:49)
[2020-10-26] MEDS: Metoprolol Tartrate 50 MG TAB PO SCH ×2 (11:30→21:51)
[2020-10-26] MEDS: Cyanocobalamin (Vitamin B-12) 1,000 MCG TAB PO SCH (11:30)
[2020-10-26] MEDS: Famotidine 20 MG TAB PO SCH ×2 (11:30→21:49)
[2020-10-26] MEDS: Timolol 0.5% Ophth Soln 5 ml Bottle L EYE SCH (11:31)
[2020-10-26] MEDS: carBAMazepine 100 mg Chewable Tablet PO SCH ×3 (11:32→21:49)
--- NOTE | 2020-10-26 13:57 | PDOC.HOSPP ---
- Subjective Encounter Date: 10/26/20 Encounter Time: 10:00 Subjective: awake, no complaints, not in distress - Objective Vital Signs & Weight: Vital Signs (12 hours) Temp Pulse Resp BP BP Pulse Ox 10/26/20 11:31 88 120/79 10/26/20 11:28 88 120/79 10/26/20 08:40 99 10/26/20 07:44 98.4 F 88 16 113/77 99 Weight Admit Weight 175 lb Weight 175 lb I&O: 10/25/20 10/26/20 10/27/20 06:59 06:59 06:59 Intake Total 1490 1060 120 Output Total 1225 900 Balance 265 160 120 Result Diagrams: 10/25/20 06:15 10/25/20 06:15 Additional Labs: Accuchecks 10/26/20 10/25/20 10/25/20 05:49 20:46 16:20 POC Glucose 144 H 135 H 203 H 10/25/20 11:59 POC Glucose 157 H Hospitalist ROS - Medication Medications: Active Medications Generic Name Dose Route Start Last Admin Trade Name Freq PRN Reason Stop Dose Admin Amlodipine Besylate 10 mg 10/17/20 09:00 10/26/20 11:28 Amlodipine 10 Mg Tab PO 10 mg DAILY ADAM Administration Buspirone HCl 5 mg 10/18/20 21:00 10/26/20 11:29 Buspirone Hcl 5 Mg Tab PO 5 mg BID ADAM Administration Carbamazepine 100 mg 10/13/20 15:00 10/26/20 11:32 Carbamazepine 100 Mg Chewable Tablet PO 100 mg TID ADAM Administration Cyanocobalamin 1,000 mcg 10/14/20 09:00 10/26/20 11:30 Cyanocobalamin (Vitamin B-12) 1,000 Mcg Tab PO 1,000 mcg DAILY ADAM Administration Famotidine 20 mg 10/19/20 21:00 10/26/20 11:30 Famotidine 20 Mg Tab PO 20 mg BID ADAM Administration Hydralazine HCl 10 mg 10/14/20 08:49 10/17/20 01:19 Hydralazine 20 Mg/Ml Vial SLOW IVP 10 mg Q4H PRN Administration SBP GREATER THAN 160 Insulin Human Lispro 0 units 10/13/20 11:21 10/25/20 16:57 Humalog 300 Units/3 Ml Vial SC 4 unit .MODERATE SLIDING SC PRN Administration Moderate Correctional Scale Labetalol HCl 20 mg 10/15/20 10:41 10/15/20 23:35 Labetalol Hcl 100 Mg/20 Ml Vial SLOW IVP 20 mg Q4H PRN Administration SBP GREATER THAN 160 Levothyroxine Sodium 88 mcg 10/14/20 06:00 10/26/20 05:55 Levothyroxine Sodium 88 Mcg Tab PO 88 mcg 0600 ADAM Administration Lorazepam 1 mg 10/16/20 18:37 10/18/20 04:16 Lorazepam 2 Mg/Ml Vial SLOW IVP 1 mg Q8H PRN Administration Agitation Metoprolol Tartrate 50 mg 10/18/20 21:00 10/26/20 11:30 Metoprolol Tartrate 50 Mg Tab PO 50 mg BID ADAM Administration Oxycodone HCl 2.5 mg 10/18/20 10:23 10/23/20 08:34 Oxycodone 5 Mg Tab PO 2.5 mg Q6H PRN Administration Moderate to Severe Pain (6-10) Quetiapine Fumarate 25 mg 10/25/20 21:00 10/26/20 11:30 Quetiapine Fumarate 25 Mg Tab PO 25 mg BID ADAM Administration Sodium Chloride 10 ml 10/13/20 20:58 10/17/20 15:21 Flush - Normal Saline 10 Ml Syringe IVF 10 ml PRN PRN Administration Saline Flush Sterile Water 1.2 ml 10/15/20 18:45 10/25/20 13:44 Sterile Water 10 Ml Vial FS 1.2 ml PRN PRN Administration RECONSTITUTION Timolol Maleate 1 drop 10/14/20 09:00 10/26/20 11:31 Timolol 0.5% Ophth Soln 5 Ml Bottle L EYE 1 drop DAILY ADAM Administration Trazodone HCl 100 mg 10/25/20 21:00 10/25/20 21:48 Trazodone Hcl 50 Mg Tab PO 100 mg HS ADAM Administration - Exam General Appearance: awake alert Eye: PERRL, anicteric sclera ENT: no oropharyngeal lesions, dry oral mucosa Neck: supple, no JVD Heart: RRR, no murmur Respiratory: no wheezes, no rales Gastrointestinal: soft, non-tender, non-distended, normal bowel sounds Extremities: no cyanosis, no edema Neurological: cranial nerve grossly intact, no focal deficits Hosp A/P (1) Choledocholithiasis with acute cholecystitis with obstruction Code(s): K80.43 - CALCULUS OF BILE DUCT W ACUTE CHOLECYSTITIS WITH OBSTRUCTION Status: Resolved (2) Encephalopathy Code(s): G93.40 - ENCEPHALOPATHY, UNSPECIFIED Status: Resolved (3) Cholangitis Code(s): K83.09 - OTHER CHOLANGITIS Status: Resolved (4) POLI (acute kidney injury) Code(s): N17.9 - ACUTE KIDNEY FAILURE, UNSPECIFIED Status: Resolved (5) Chronic a-fib Code(s): I48.2 - CHRONIC ATRIAL FIBRILLATION * DO NOT USE * Status: Chronic (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 Code(s): Z93.3 - COLOSTOMY STATUS Status: Chronic (7) Dementia Code(s): F03.90 - UNSPECIFIED DEMENTIA WITHOUT BEHAVIORAL DISTURBANCE Status: Chronic Qualifiers: Dementia type: Alzheimer's disease (8) Diabetes type 2, controlled Code(s): E11.9 - TYPE 2 DIABETES MELLITUS WITHOUT COMPLICATIONS Status: Chronic Qualifiers: Diabetes mellitus shelter insulin use: without shelter use (9) Dyslipidemia Code(s): E78.5 - HYPERLIPIDEMIA, UNSPECIFIED Status: Chronic (10) GERD (gastroesophageal reflux disease) Code(s): K21.9 - GASTRO-ESOPHAGEAL REFLUX DISEASE WITHOUT ESOPHAGITIS Status: Chronic Qualifiers: Esophagitis presence: esophagitis presence not specified Qualified Code(s): K21.9 - Gastro-esophageal reflux disease without esophagitis (11) Glaucoma Code(s): H40.9 - UNSPECIFIED GLAUCOMA Status: Chronic Qualifiers: Glaucoma type: unspecified Laterality: bilateral Qualified Code(s): H40.9 - Unspecified glaucoma (12) Hypertension Code(s): I10 - ESSENTIAL (PRIMARY) HYPERTENSION Status: Chronic Qualifiers: Hypertension type: essential hypertension Qualified Code(s): I10 - Essential (primary) hypertension (13) Hypothyroidism Code(s): E03.9 - HYPOTHYROIDISM, UNSPECIFIED Status: Chronic (14) Parkinson disease Code(s): G20 - PARKINSON'S DISEASE Status: Chronic (15) Physical deconditioning Code(s): R53.81 - OTHER MALAISE Status: Chronic - Plan pt is s/p ercp with stone/sludge extraction and sphinterotomy, lap cholecystomy. likely at baseline cognitive status dc plan to snf, family are ok with hospice to be arranged at [facility], cm working on it. add seroquel 25mg bid, and increase trazadone to 100mg HS. d/w son and gave full updates 10/23, 10/25. encourage po intake continue norvasc, lopressor, tegretol, buspirone, trazadone, synthroid. hemostable
--- NOTE | 2020-10-26 15:36 | PDOC.FMACP ---
Advance Care Planning - Problem (1) Palliative care encounter Status: Acute Code(s): Z51.5 - ENCOUNTER FOR PALLIATIVE CARE (2) Choledocholithiasis with acute cholecystitis with obstruction Status: Resolved Code(s): K80.43 - CALCULUS OF BILE DUCT W ACUTE CHOLECYSTITIS WITH OBSTRUCTION (3) Encephalopathy Status: Resolved Code(s): G93.40 - ENCEPHALOPATHY, UNSPECIFIED (4) Atrial fibrillation Status: Chronic Code(s): I48.91 - UNSPECIFIED ATRIAL FIBRILLATION Qualifiers: Atrial fibrillation type: unspecified Qualified Code(s): I48.91 - Unspecified atrial fibrillation (5) CKD (chronic kidney disease) stage 3, GFR 30-59 ml/min Status: Chronic Code(s): N18.3 - CHRONIC KIDNEY DISEASE, STAGE 3 (MODERATE) * DO NOT USE * (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 Status: Chronic Code(s): Z93.3 - COLOSTOMY STATUS (7) Dementia Status: Chronic Code(s): F03.90 - UNSPECIFIED DEMENTIA WITHOUT BEHAVIORAL DISTURBANCE Qualifiers: Dementia type: Alzheimer's disease - Note Participants: patient, family, palliative care Summary: Palliative care has addressed Advanced Care Planning with gina acosta. The diagnosis, prognosis and goals of care were discussed. Appropriate forms and documentation to accomplish the goals of care were discussed. All questions were answered. *Confirmed DNAR status *Resident at [facility] *Prior [facility] *Reviewed Decline, sons understanding and agreeable for consideration of transition to hospice. *CM involved Please also refer to Palliative Care notes in note section Time Spent (mins): 15
[2020-10-26] MEDS: HumaLOG 300 UNITS/3 ML VIAL SC PRN (17:35)
[2020-10-26] MEDS: traZODone HCl 50 MG TAB PO SCH (21:49)
[2020-10-27] MEDS: Levothyroxine Sodium 88 MCG TAB PO SCH (06:12)
[2020-10-27] MEDS: Metoprolol Tartrate 50 MG TAB PO SCH (09:19)
[2020-10-27] MEDS: carBAMazepine 100 mg Chewable Tablet PO SCH ×2 (09:19→14:48)
[2020-10-27] MEDS: Famotidine 20 MG TAB PO SCH (09:20)
[2020-10-27] MEDS: busPIRone HCl 5 MG TAB PO SCH (09:20)
[2020-10-27] MEDS: Cyanocobalamin (Vitamin B-12) 1,000 MCG TAB PO SCH (09:20)
[2020-10-27] MEDS: Timolol 0.5% Ophth Soln 5 ml Bottle L EYE SCH (09:21)
[2020-10-27] MEDS: Amlodipine 10 MG TAB PO SCH (09:21)
--- NOTE | 2020-10-27 15:13 | DIS ---
DATE OF ADMISSION: 10/13/2020 DATE OF DISCHARGE: 10/27/2020 DISCHARGE DISPOSITION: [facility]. PRIMARY DISCHARGE DIAGNOSES: Choledocholithiasis with acute cholecystitis and obstruction status post ERCP with extraction of stones and laparoscopic cholecystectomy; acute metabolic encephalopathy on arrival resolved; suspected cholangitis, resolved; acute kidney injury on admission, resolved; chronic atrial fibrillation; dementia; diabetes mellitus type 2; gastroesophageal reflux disease; dyslipidemia; glaucoma; hypertension; hypothyroidism; Parkinson disease; physical deconditioning. PROCEDURES DONE DURING HOSPITALIZATION: Abdominal and pelvic CAT scan done on the day of admission showed 5 mm stone within distal common bile duct causing dilatation of the common bile duct and gallbladder. CT brain showed no evidence of acute intracranial process. The patient had laparoscopic cholecystectomy done on 10/14/[address] Camara. ERCP done on 10/14/2020 with sphincterotomy and balloon stone extraction by Dr. Jesús Dean. H and H 11 and 36, platelet count 276, MCV is 87, white count of 7 on the day of discharge. BUN 14, creatinine 0.7. Initial total bilirubin 3.6, AST 203, ALT 105, alkaline phosphatase 277. The patient had normal AST, ALT, and total bilirubin of 1.2 on the 21 of October. COVID-19 PCR was not detected. INPATIENT CONSULT: Dr. Jesús Dean/Flor for Gastroenterology, Dr. Camara for General Surgery. DISCHARGE MEDICATION: 1. Donepezil 5 mg p.o. daily. 2. Buspirone 5 mg twice daily. 3. Carbamazepine 200 mg 3 times daily. 4. Glipizide 5 mg p.o. at bedtime. 5. Myrbetriq 25 mg daily. 6. Protonix 40 mg daily. 7. Timolol eye drops as before. 8. Levothyroxine 88 mcg p.o. daily. 9. Vitamin B12 1000 mcg p.o. daily. 10. Xarelto 15 mg p.o. daily. 11. Trazodone 100 mg p.o. at bedtime. 12. Lipitor 40 mg p.o. at bedtime. 13. Lopressor 50 mg twice daily. 14. Norvasc 10 mg p.o. daily. 15. Seroquel 25 mg twice daily. 16. Vitamin B12 1000 mcg p.o. daily. ALLERGIES: HALDOL, NSAIDS, AND REGLAN. DISCHARGE PLAN: The patient to follow up with her primary care physician, Dr. Wilner Montana in 1 week. BRIEF COURSE DURING HOSPITALIZATION: Patient initially got admitted on the 2nd after she was sent over for altered mental state and increasing confusion from [facility]. Her initial CAT scan was suggestive of choledocholithiasis. The patient was admitted to the medical floor. She has had consultation with Dr. Camara for General Surgery and Dr. Ray for Gastroenterology. The patient has had ERCP with extraction of stones and sphincterotomy done and subsequently had laparoscopic cholecystectomy in the same setting. Post these procedures, patient stabilized with her liver enzymes. She still had ongoing encephalopathy, which is slowly resolving. The patient has advanced age with dementia as well. At the time of discharge, the patient is on increased dose of trazodone at night and Seroquel low-dose 25 mg twice daily was added. Further usage of these two medications will depend on how she progresses at the assisted living facility. Her son, Jesús Harry, wanted her to be in hospice at the [facility]. The patient has physical deconditioning and has not ambulated. In view of advanced age with multiple medical issues, she is being discharged back to [facility] with hospice care. A total of 35 minutes was spent on discharge plan. Please note; I have seen and examined the patient on the day of discharge. Please note; the patient is tolerating oral solid diet. She is not a morning person. Job ID: [id number]
[2020-10-27 17:39] VITALS: BP 111/67
[2020-10-27 17:50] VITALS: TEMP 98.6
== END 2020-10-27 18:18 | disposition hospice, home (50) | DRG 417 ==
LOC: ERS 09:33 → ERHOLD 11:21 → 2NO 18:07 → T4-A 10-18 22:33
PROVIDERS: ADMIT Internal Medicine; ATTEND Internal Medicine
PROC: 0FT44ZZ Resection of Gallbladder, Percutaneous Endoscopic Approach (ICD-10-PCS; principal; 2020-10-14)
PROC: 0FC98ZZ Extirpation of Matter from Common Bile Duct, Via Natural or Artificial Opening Endoscopic (ICD-10-PCS; 2020-10-14)
DX: K80.43 Calculus of bile duct with acute cholecystitis with obstruction (principal); G93.41 Metabolic encephalopathy; N17.9 Acute kidney failure, unspecified; G20 Parkinson's disease; F02.80 Dementia in other diseases classified elsewhere, unspecified severity, without behavioral disturbance, psychotic disturbance, mood disturbance, and anxiety; I48.0 Paroxysmal atrial fibrillation; E78.00 Pure hypercholesterolemia, unspecified; R29.6 Repeated falls; F32.9 Major depressive disorder, single episode, unspecified; N32.81 Overactive bladder; R79.89 Other specified abnormal findings of blood chemistry; E03.9 Hypothyroidism, unspecified; E53.8 Deficiency of other specified B group vitamins; G47.33 Obstructive sleep apnea (adult) (pediatric); Z51.5 Encounter for palliative care; E66.9 Obesity, unspecified; Z66 Do not resuscitate; R53.81 Other malaise; N18.30 Chronic kidney disease, stage 3 unspecified; E11.22 Type 2 diabetes mellitus with diabetic chronic kidney disease; H40.9 Unspecified glaucoma; I12.9 Hypertensive chronic kidney disease with stage 1 through stage 4 chronic kidney disease, or unspecified chronic kidney disease; Z68.31 Body mass index [BMI] 31.0-31.9, adult; Z88.8 Allergy status to other drugs, medicaments and biological substances; Z93.3 Colostomy status; Z90.710 Acquired absence of both cervix and uterus; Z90.11 Acquired absence of right breast and nipple; Z86.73 Personal history of transient ischemic attack (TIA), and cerebral infarction without residual deficits; Z79.01 Long term (current) use of anticoagulants; K21.9 Gastro-esophageal reflux disease without esophagitis; Z20.828 Contact with and (suspected) exposure to other viral communicable diseases; S00.83XA Contusion of other part of head, initial encounter; Z79.84 Long term (current) use of oral hypoglycemic drugs; Z23 Encounter for immunization; W01.0XXA Fall on same level from slipping, tripping and stumbling without subsequent striking against object, initial encounter
CPT/HCPCS: 36415; 36416; 51701; 70450; 70486; 71045; 72125; 74177; 74330; 80048; 80053; 80076; 81001; 81003; 81015; 82553; 82607; 82746; 83605; 83690; 83880; 84145; 84443; 84484; 85025; 85610; 85730; 87040; 87086; 88304; 90471; 90715; 93005; 94640; 96365; 96375; 96376; J0360; J0696; J1100; J2060; J2185; J2270; J2358; J2370; J2405; J2704; J3010; J3370; J3486; J3490; J7620; Q9967; S0020; S0028; U0002